=== PATIENT | male | born 1965 | race Caucasian/White ===

== ENCOUNTER 2016-07-26 17:41 | Inpatient (IN) | payer OTHER ==
[~2016-07-26] VITALS: Ht 175.3 cm; Wt 52.6 kg
[2016-07-26 17:43] VITALS: BP 142/83; PULSE 122; RESP 16; TEMP 98.4; O2SAT 90
[2016-07-26 18:16] VITALS: BP 149/78; PULSE 111; RESP 28; O2SAT 93
[2016-07-26] MEDS ORDERED: SODIUM CHLOR 0.9% 1000 ML INJ 1,000 ML IV ONE ×3 (18:30→20:30)
[2016-07-26] MEDS ORDERED: THIAMINE INJ 100 MG in SODIUM CHLORIDE 0.9% INJ 100 ML IV ONE (18:30)
[2016-07-26] MEDS ORDERED: LORazepam 2 MG/ML VIAL IV PUSH ONE ×3 (18:30→20:30)
[2016-07-26 18:51] LABS: AUTOMATED NEUTROPHIL # 4.6 TH/MM3 (1.8-7.7); BASOPHIL % 0.1 % (0.0-2.0); HEMATOCRIT 37.8 % (39.0-51.0); LYMPH % 7.2 % (9.0-44.0); LYMPHOCYTE # 0.4 TH/MM3 (1.0-4.8); MEAN CELL VOLUME 106.4 FL (80.0-100.0); MEAN CORPUSCULAR HEMOGLOBIN 37.3 PG (27.0-34.0); MONO % 12.3 % (0.0-8.0); NEUT % 80.4 % (16.0-70.0); PLATELET COUNT 20 TH/MM3 (150-450); RED BLOOD COUNT 3.55 MIL/MM3 (4.50-5.90); WHITE BLOOD COUNT 5.7 TH/MM3 (4.0-11.0)
[2016-07-26 18:52] LABS: HEMO FLAGS AUTO DIFF
[2016-07-26 19:00] VITALS: BP 142/72; PULSE 130; RESP 20; O2SAT 93
[2016-07-26 19:19] LABS: BICARBONATE 28.2 MEQ/L (21.0-32.0); MAGNESIUM 1.1 MG/DL (1.5-2.5); POTASSIUM 3.2 MEQ/L (3.5-5.1)
--- NOTE | 2016-07-26 19:22 | PD ---
HPI Chief Complaint: Alcohol/Drug Intoxication Time Seen by Provider: 18:05 Travel History International Travel<30 days: No Contact w/Intl Traveler<30days: No Traveled to known affect area: No History of Present Illness HPI 51yo M with PMH of alcohol abuse presents to the ED with c/o shakiness today. Pt last drank at 12pm and thinks he is going through alcohol withdrawal. Pt wants detox from alcohol. States he has had history of alcohol withdrawal seizures. Denies any fever, chest pain, sob, n/v, abdominal pain, weakness or numbness. PFSH Past Medical History Depression: Yes (PARENTS PAST AWAY ) Diminished Hearing: No Medical other: Yes (ETOH ABUSE) Musculoskeletal: Yes (CHRONIC BACK PAIN DUE TO ACCIDENT ) Immunizations Current: No Seizures: Yes (RELATED ALCOHOL WITHDRAWAL) Tetanus Vaccination: < 5 Years Influenza Vaccination: No Past Surgical History Surgical History: No Previous Surgery Social History Alcohol Use: Yes (ETOH ABUSE ) Tobacco Use: Yes (1/2 PPD ) Substance Use: Yes (SMOKE WEED ) Allergies-Medications (Allergen,Severity, Reaction): Coded Allergies: Penicillin (Verified Allergy, Unknown, RASHES, 07/26/16) Reported Meds & Prescriptions Reported Meds & Active Scripts Active No Active Prescriptions or Reported Medications Review of Systems Except as stated in HPI: all other systems reviewed are Neg Physical Exam Narrative GENERAL: 51yo M in mild distress. SKIN: Warm and dry. HEAD: Atraumatic. Normocephalic. EYES: Pupils equal and round. No scleral icterus. No injection or drainage. ENT: No nasal bleeding or discharge. Mucous membranes pink and moist. NECK: Trachea midline. No JVD. CARDIOVASCULAR: Tachycardic. RESPIRATORY: No accessory muscle use. Clear to auscultation. GASTROINTESTINAL: Abdomen soft, non-tender, nondistended. No rebound tenderness or guarding. MUSCULOSKELETAL: No obvious deformities. No clubbing. No cyanosis. No edema. NEUROLOGICAL: Awake and alert. No obvious cranial nerve deficits. Motor grossly within normal limits. Normal speech. +Upper extremity tremors and tongue fasiculation. PSYCHIATRIC: Appropriate mood and affect; insight and judgment normal. Data Data Last Documented VS Vital Signs Date Time Temp Pulse Resp B/P Pulse Ox O2 Delivery O2 Flow Rate FiO2 07/26/16 19:45 92 21 07/26/16 19:00 130 20 142/72 Room Air 07/26/16 17:43 98.4 Orders Complete Blood Count With Diff (07/26/16 18:16) Basic Metabolic Panel (Bmp) (07/26/16 18:16) Magnesium (Mg) (07/26/16 18:16) Thiamine Inj (Thiamine Inj) (07/26/16 18:30) Lorazepam Inj (Ativan Inj) (07/26/16 18:30) Sodium Chlor 0.9% 1000 Ml Inj (Ns 1000 M (07/26/16 18:30) Lorazepam Inj (Ativan Inj) (07/26/16 19:30) Electrocardiogram (07/26/16 ) Chest, Single Ap (07/26/16 ) Methylprednisolone So Succ Inj (Solumedr (07/26/16 19:30) Albuterol-Ipratropium Neb (Duoneb Neb) (07/26/16 19:30) Magnesium Sulfate 1 Gm Premix (Magnesium (07/26/16 20:00) Potassium Chloride (Kcl) (07/26/16 20:00) Sodium Chlor 0.9% 1000 Ml Inj (Ns 1000 M (07/26/16 20:15) Levofloxacin 750 Mg Premix Inj (Levaquin (07/26/16 20:15) Blood Culture (07/26/16 20:15) Lactic Acid Sepsis Protocol (07/26/16 20:15) Alcohol (Ethanol) (07/26/16 20:15) Sodium Chlor 0.9% 1000 Ml Inj (Ns 1000 M (07/26/16 20:30) Admit Order (Ed Use Only) (07/26/16 20:19) Labs Laboratory Tests Test 07/26/16 18:15 White Blood Count 5.7 TH/MM3 Red Blood Count 3.55 MIL/MM3 Hemoglobin 13.2 GM/DL Hematocrit 37.8 % Mean Corpuscular Volume 106.4 FL Mean Corpuscular Hemoglobin 37.3 PG Mean Corpuscular Hemoglobin 35.0 % Concent Red Cell Distribution Width 14.0 % Platelet Count 20 TH/MM3 Mean Platelet Volume 8.3 FL Neutrophils (%) (Auto) 80.4 % Lymphocytes (%) (Auto) 7.2 % Monocytes (%) (Auto) 12.3 % Eosinophils (%) (Auto) 0.0 % Basophils (%) (Auto) 0.1 % Neutrophils # (Auto) 4.6 TH/MM3 Lymphocytes # (Auto) 0.4 TH/MM3 Monocytes # (Auto) 0.7 TH/MM3 Eosinophils # (Auto) 0.0 TH/MM3 Basophils # (Auto) 0.0 TH/MM3 CBC Comment AUTO DIFF Differential Comment AUTO DIFF CONFIRMED Platelet Estimate RARE Platelet Morphology Comment NORMAL Sodium Level 128 MEQ/L Potassium Level 3.2 MEQ/L Chloride Level 85 MEQ/L Carbon Dioxide Level 28.2 MEQ/L Anion Gap 15 MEQ/L Blood Urea Nitrogen 7 MG/DL Creatinine 0.54 MG/DL Estimat Glomerular Filtration 159 ML/MIN Rate Random Glucose 84 MG/DL Calcium Level 8.5 MG/DL Magnesium Level 1.1 MG/DL Ethyl Alcohol Level 30 MG/DL [facility] Medical Decision Making Medical Screen Exam Complete: Yes Emergency Medical Condition: Yes Differential Diagnosis Alcohol withdrawal vs. COPD exacerbation vs. Pneumonia Narrative Course 51yo M with alcohol abuse presents to the ED complaining of shaking that feels like his alcohol withdrawal. Pt initially mildly tachycardic in the 110s and with tongue fasciculation and upper extremity tremors. Impression is alcohol withdrawal since pt has not had alcohol since 12pm. Pt given ativan 1mg IV, thiamine and IVF NS. Labs reviewed, no leukocytosis. Hyponatremia at 128. Hypokalemia at 3.2, replaced orally with 40mEq KCl. Hypomagnesemia at 1.1, replaced with magnesium sulfate 1gm IV. Pt reevaluated at bedside and is still very tremulous. Pt is now more tachycardic with sinus tach in the 130s. Another ativan 1mg IV ordered. Pt now complained of sob so lungs were reexamined and can hear end expiratory wheezing. Pt is chronic cig smoker so duonebsx3 and methylprednisolone given. CXR showed focal infiltrate right lung base most characteristic of a bronchopneumonia in the right middle lobe. Blood cultures ordered and levofloxacin 750mg IV ordered. 2 more liters of NS IVF ordered. Discussed with hospitalist Dr. Ji and accepted for admission for pneumonia, alcohol withdrawal, hypomagnesemia, and COPD exacerbation. Diagnosis Primary Impression: PNA (pneumonia) Qualified Code: J18.1 - Pneumonia of right middle lobe due to infectious organism Additional Impressions: Hypomagnesemia Alcohol withdrawal Qualified Code: F10.230 - Alcohol withdrawal, uncomplicated Admitting Information Admitting Physician Requests: Admit Scripts No Active Prescriptions or Reported Meds Lashawn Larsen DO Jul 26, 2016 19:22
[2016-07-26] MEDS ORDERED: methylPREDNISolone SOD SUCC 125 MG/2 ML VIAL IVP ONE (19:30)
[2016-07-26 19:43] LABS: PLATELET ESTIMATE SMEAR RARE (NORMAL); PLATELET MORPHOLOGY NORMAL (NORMAL); SCAN/DIFF AUTO DIFF CONFIRMED
[2016-07-26 19:45] VITALS: O2SAT 92
[2016-07-26] MEDS: RESP: ALBUTEROL 2.5 MG/IPRATROPIUM 0.5 MG NEB (SCH) INH (19:49)
[2016-07-26] MEDS ORDERED: POTASSIUM CHLORIDE 20 MEQ CONTROLLED RELEASE TAB PO ONE (20:00)
[2016-07-26] MEDS ORDERED: MAGNESIUM SULFATE 1 GM PREMIX 100 ML IV ONE (20:00)
--- NOTE | 2016-07-26 20:08 | RADRPT ---
EXAM DATE/TIME: 07/26/2016 19:17 [facility] COMPARISON: No previous studies available for comparison. INDICATIONS : Short of breath. MEDICAL HISTORY : None. SURGICAL HISTORY : None. ENCOUNTER: Initial ACUITY: 1 day PAIN SCORE: 0/10 LOCATION: Bilateral chest FINDINGS: There is some focal consolidation at the medial aspect of the right lung base, probably in the right middle lobe. Left lung clear. No effusion. No pneumothorax. CONCLUSION: 1. Focal infiltrate right lung base most characteristic of a bronchopneumonia in the right middle lob e. Augustine Rios MD on July 26, 2016 at 20:06 Board Certified Radiologist. This report was verified electronically.
[2016-07-26] MEDS ORDERED: LEVOFLOXACIN 750 MG PREMIX INJ 150 ML IV ONE (20:15)
--- NOTE | 2016-07-26 20:24 | HHI.HP ---
HPI Service [facility] Primary Care Physician No Primary Care Physician Admission Diagnosis Right middle lobe pneumonia, alcohol withdrawal, hypomagnesemia Diagnoses: (1) Alcohol withdrawal Diagnosis: Principal (2) PNA (pneumonia) Diagnosis: Principal (3) Hypomagnesemia Diagnosis: Principal (4) Hypokalemia Diagnosis: Principal (5) Thrombocytopenia Diagnosis: Principal (6) Tobacco abuse Diagnosis: Principal Travel History International Travel<30 Days: No Contact w/Intl Traveler <30 Da: No Traveled to Known Affected Are: No History of Present Illness This is a 51-year-old male with a PMH of Depression, Alcohol Abuse, Alcohol Related Seizure and Tobacco Abuse who presented to the ER with complaints of tremors and intentions of quitting alcohol. States he stopped drinking at approx noon today. Has had progressive tremors since then. On arrival, BP 142/ 83, HR 122, O2 sat 90% on RA, Afebrile. Na 128, K+ 3.2, Lactic Acid 2.5, Mg 1.1. WBC normal. Hgb 13.2, MCV 106. Platelets 20. No active bleeding noted. Alcohol 30. CXR w/ infiltrate RLL and RML. S/p Levaquin in ER. Review of Systems Except as stated in HPI: all other systems reviewed are Neg ROS: 14 point review of systems otherwise negative. Past Family Social History Past Medical History PMH: Depression, Alcohol Abuse, Alcohol Related Seizure and Tobacco Abuse Past Surgical History PAST SURGICAL HISTORY: None Allergies: Coded Allergies: Penicillin (Verified Allergy, Unknown, RASHES, 07/26/16) Family History PAST FAMILY HISTORY: Reviewed. No h/o DM or CAD Social History PAST SOCIAL HISTORY: Positive for alcohol abuse, tobacco abuse and Marijuana. Physical Exam Vital Signs Vital Signs Date Time Temp Pulse Resp B/P Pulse Ox O2 Delivery O2 Flow Rate FiO2 07/26/16 18:16 111 28 149/78 93 Room Air 07/26/16 17:43 98.4 122 16 142/83 90 Room Air Physical Exam PE: GENERAL: Middle-aged white male in no acute distress, significant tremors. HEENT: PERRLA, EOMI. No scleral icterus or conjunctival pallor. No lid lag or facial droop. CARDIOVASCULAR: Regular rate and rhythm. No obvious murmurs to auscultation. No chest tenderness to palpation. RESPIRATORY: No obvious rhonchi or wheezing. Clear to auscultation. Breath sounds equal bilaterally. GASTROINTESTINAL: Abdomen soft, non-tender, nondistended. BS normal. MUSCULOSKELETAL: Extremities without clubbing, cyanosis, or edema. No obvious deformities. NEUROLOGICAL: Awake, alert and oriented x4. No focal neurologic deficits. Moving both upper and lower extremities spontaneously. Laboratory Laboratory Tests Test 07/26/16 18:15 White Blood Count 5.7 Red Blood Count 3.55 Hemoglobin 13.2 Hematocrit 37.8 Mean Corpuscular Volume 106.4 Mean Corpuscular Hemoglobin 37.3 Mean Corpuscular Hemoglobin 35.0 Concent Red Cell Distribution Width 14.0 Platelet Count 20 Mean Platelet Volume 8.3 Neutrophils (%) (Auto) 80.4 Lymphocytes (%) (Auto) 7.2 Monocytes (%) (Auto) 12.3 Eosinophils (%) (Auto) 0.0 Basophils (%) (Auto) 0.1 Neutrophils # (Auto) 4.6 Lymphocytes # (Auto) 0.4 Monocytes # (Auto) 0.7 Eosinophils # (Auto) 0.0 Basophils # (Auto) 0.0 CBC Comment AUTO DIFF Differential Comment AUTO DIFF CONFIRMED Platelet Estimate RARE Platelet Morphology Comment NORMAL Sodium Level 128 Potassium Level 3.2 Chloride Level 85 Carbon Dioxide Level 28.2 Anion Gap 15 Blood Urea Nitrogen 7 Creatinine 0.54 Estimat Glomerular Filtration 159 Rate Random Glucose 84 Calcium Level 8.5 Magnesium Level 1.1 Result Diagram: 07/26/16181407/26/161814 Assessment and Plan Problem List: (1) Alcohol withdrawal ICD Code: F10.239 Status: Acute (2) Thrombocytopenia ICD Code: D69.6 Status: Acute (3) Hypomagnesemia ICD Code: E83.42 Status: Acute (4) Hypokalemia ICD Code: E87.6 Status: Acute (5) PNA (pneumonia) ICD Code: J18.9 Status: Acute (6) Tobacco abuse ICD Code: Z72.0 Status: Acute Assessment and Plan A/P: 1. Alcohol Withdrawal: +Alcohol Abuse w/ Acute Withdrawal, last drink approx 12pm today. Alcohol 30. S/p Ativan and Thiamine in ER. Seizure Precautions, CIWA Protocol, Thiamine/MVT/Folate replacement. IVF for hydration. 2. Hypokalemia: K+ 3.2, s/p replacement in ER, will recheck and replace as needed. 3. Hypomagnesemia: Mg 1.1, s/p replacement. Recheck in am and replace as needed. 4. PNA: CXR w/ RLL and RML infiltrate, images reviewed by me. S/p Solu- Medrol and DuoNeb in ER for wheezing, now resolved. Continue IV Levaquin, DuoNeb prn. 5. Thrombocytopenia: Platelets 20, no previous labs for comparison. Presumably chronic secondary to alcohol abuse and splenic sequestration. No active bleeding at this time. Monitor closely. Repeat labs in am. 6. Tobacco Abuse: Counselled. Ativan prn. 7. DVT Prophylaxis: Pharmacologic contraindication in light of thrombocytopenia. 8. Social work for d/c planning as needed. 9. Case discussed w/ ER physician at length. Physician Certification 2 Midnight Certification Type: Admission for Inpatient Services Order for Inpatient Services The services are ordered in accordance with Medicare regulations or non- Medicare payer requirements, as applicable. In the case of services not specified as inpatient-only, they are appropriately provided as inpatient services in accordance with the 2-midnight benchmark. Estimated LOS (days): 2 days is the estimated time the patient will need to remain in the hospital, assuming treatment plan goals are met and no additional complications. Post-Hospital Plan: Not yet determined Fani Ji MD Jul 26, 2016 20:24
[2016-07-26] MEDS ORDERED: ONDANSETRON HCL 4 MG/2 ML VIAL IVP PRN (20:30)
[2016-07-26] MEDS ORDERED: BISACODYL 10 MG SUPP PR PRN (20:30)
[2016-07-26] MEDS ORDERED: FLUMAZENIL 0.5 MG/5 ML VIAL IV PUSH PRN (20:30)
[2016-07-26] MEDS ORDERED: LORazepam 2 MG TAB PO PRN (20:30)
[2016-07-26] MEDS: SODIUM CHLORIDE 0.9% FLUSH 5 ML FLUSH FLUSH SCH (22:26)
[2016-07-26] MEDS: SODIUM CHLOR 0.9% 1000 ML INJ 1,000 ML IV SCH (22:27)
[2016-07-26 23:00] VITALS: BP 149/66; PULSE 105; RESP 20; TEMP 98.9; O2SAT 93
[2016-07-26] MEDS: MULTIVITAMIN INJ 10 ML, FOLIC ACID INJ 1 MG in SODIUM CHLORID 0.9% 500 ML INJ 500 ML IV SCH (23:21)
[2016-07-27] VITALS (15 sets, daily range): BP systolic 115–149; BP diastolic 60–98; PULSE 98–143; RESP 16–44; TEMP 98.1–102.8; O2SAT 88–96
[2016-07-27 00:54] LABS: LACTIC ACID GHOST NOT REPORTABLE
[2016-07-27] MEDS: LORazepam 2 MG/ML VIAL IV PUSH PRN ×10 (00:56→23:38)
[2016-07-27] MEDS: HALOPERIDOL LACTATE 5 MG/ML AMP IM PRN ×3 (02:02→19:43)
[2016-07-27 02:59] LABS: AUTOMATED NEUTROPHIL # 4.2 TH/MM3 (1.8-7.7); BASOPHIL % 0.3 % (0.0-2.0); HEMATOCRIT 36.4 % (39.0-51.0); LYMPH % 7.9 % (9.0-44.0); LYMPHOCYTE # 0.4 TH/MM3 (1.0-4.8); MEAN CELL VOLUME 106.1 FL (80.0-100.0); MEAN CORPUSCULAR HEMOGLOBIN 37.8 PG (27.0-34.0); MEAN CORPUSCULAR HGB CONC 35.6 % (32.0-36.0); MONO % 6.2 % (0.0-8.0); NEUT % 85.6 % (16.0-70.0); RED BLOOD COUNT 3.44 MIL/MM3 (4.50-5.90); RED CELL DISTRIBUTION WIDTH 14.5 % (11.6-17.2); WHITE BLOOD COUNT 4.9 TH/MM3 (4.0-11.0)
[2016-07-27 03:01] LABS: HEMO FLAGS AUTO DIFF
[2016-07-27 03:03] LABS: PLATELET COUNT 18 TH/MM3 (150-450)
[2016-07-27 03:20] LABS: ALKALINE PHOSPHATASE 71 U/L (45-117); ALT (GPT) 40 U/L (12-78); ANION GAP 11 MEQ/L (5-15); AST (GOT) 204 U/L (15-37); BLOOD UREA NITROGEN 5 MG/DL (7-18); CHLORIDE 94 MEQ/L (98-107); GLOMERULAR FILTRATION RATE 202 ML/MIN (>89); POTASSIUM 3.2 MEQ/L (3.5-5.1); SODIUM (NA) 132 MEQ/L (136-145); TOTAL BILIRUBIN ADULT 0.8 MG/DL (0.2-1.0)
[2016-07-27 04:21] LABS: BANDS 30 % (0-6); BASOPHILS 1 % (0-2); CORRECTED NUCLEATED RBC 1 /100 WBC (0-0); METAMYELOCYTES 4 % (0-1); NEUTROPHIL # MANUAL DIFF 4.1 TH/MM3 (1.8-7.7); POLYS (SEG NEUTROPHILS) 50 % (16-70); SCAN/DIFF FINAL DIFF MANUAL; WBC DIFF SAMPLE 100
[2016-07-27 04:23] LABS: PLATELET ESTIMATE SMEAR LOW (NORMAL); PLATELET MORPHOLOGY NORMAL (NORMAL)
[2016-07-27] MEDS: SODIUM CHLOR 0.9% 1000 ML INJ 1,000 ML IV SCH (07:00)
[2016-07-27] MEDS: LORazepam 1 MG TAB PO PRN (10:16)
[2016-07-27] MEDS: SODIUM CHLORIDE 0.9% FLUSH 5 ML FLUSH FLUSH SCH ×2 (11:08→19:44)
[2016-07-27] MEDS ORDERED: LORazepam 2 MG/ML VIAL IV PUSH PRN (12:00)
--- NOTE | 2016-07-27 12:08 | HHI.PR ---
Subjective Remarks Follow-up alcohol abuse and Pneumonia. States he is doing okay. Discussed with RN, patient at times confused and hallucinating. He has been coughing Objective Vitals Vital Signs Date Time Temp Pulse Resp B/P Pulse Ox O2 Delivery O2 Flow Rate FiO2 07/27/16 11:40 114 18 127/70 93 Room Air 07/27/16 09:31 98 16 127/67 95 Room Air 07/27/16 08:31 103 16 123/73 96 Room Air 07/27/16 08:02 103 18 126/71 96 Room Air 07/27/16 06:46 98.2 98 20 115/60 93 Room Air 07/27/16 05:00 98.5 107 20 115/65 93 Room Air 07/27/16 02:00 98.8 110 20 122/67 93 Room Air 07/26/16 23:00 98.9 105 20 149/66 93 Room Air 07/26/16 19:45 92 21 07/26/16 19:00 130 20 142/72 93 Room Air 07/26/16 18:16 111 28 149/78 93 Room Air 07/26/16 17:43 98.4 122 16 142/83 90 Room Air I/O 07/26/16 07/26/16 07/26/16 07/27/16 07/27/16 07/27/16 07:00 15:00 23:00 07:00 15:00 23:00 Intake Total 2000 ml Output Total 2600 ml 400 ml Balance -600 ml -400 ml Intake IV Total 2000 ml Output Urine Total 2600 ml 400 ml # Voids 1 0 Result Diagram: 07/27/16 0246 07/27/16 0246 Imaging Last Impressions Chest X-Ray 07/26/16 0000 Signed Impressions: Service Date/Time: July 19:17 - CONCLUSION: 1. Focal infiltrate right lung base most characteristic of a bronchopneumonia in the right middle lobe. Augustine Rios MD Objective Remarks GENERAL: Middle-aged white male in no acute distress, HEENT: PERRLA, EOMI. No scleral icterus or conjunctival pallor. No lid lag or facial droop. CARDIOVASCULAR: Regular rate and rhythm. No obvious murmurs to auscultation. No chest tenderness to palpation. RESPIRATORY: No obvious rhonchi or wheezing. Clear to auscultation. Breath sounds equal bilaterally. GASTROINTESTINAL: Abdomen soft, non-tender, nondistended. BS normal. MUSCULOSKELETAL: Extremities without clubbing, cyanosis, or edema. No obvious deformities. NEUROLOGICAL: Awake, alert and oriented. No focal neurologic deficits. Moving both upper and lower extremities spontaneously. Tremors. A/P Problem List: (1) Alcohol withdrawal ICD Code: F10.239 Status: Acute (2) Thrombocytopenia ICD Code: D69.6 Status: Acute (3) Hypomagnesemia ICD Code: E83.42 Status: Acute (4) Hypokalemia ICD Code: E87.6 Status: Acute (5) PNA (pneumonia) ICD Code: J18.9 Status: Acute (6) Tobacco abuse ICD Code: Z72.0 Status: Acute Assessment and Plan 1. Alcohol Withdrawal: +Alcohol Abuse w/ Acute Withdrawal, last drink approx 12pm 07/26/16. Alcohol 30. S/p Ativan and Thiamine in ER. Seizure Precautions, CIWA Protocol, Thiamine/MVT/Folate replacement. IVF for hydration. 2. Hypokalemia: K+ 3.2, s/p replacement in ER, will recheck and replace as needed. 3. Hypomagnesemia: Mg 1.1, s/p replacement. Recheck in am and replace as needed. 4. Severe sepsis PNA: CXR w/ RLL and RML infiltrate, images reviewed by me. S /p Solu-Medrol and DuoNeb in ER for wheezing, now resolved. Continue IV Levaquin, DuoNeb prn. Check sputum and urinary Legionella and pneumococcal antigen 5. Thrombocytopenia: Platelets 20, no previous labs for comparison. Presumably chronic secondary to alcohol abuse and splenic sequestration. No active bleeding at this time. Monitor closely. Repeat labs in am. Check sonogram 6. Tobacco Abuse: Counselled. Ativan prn. 7. DVT Prophylaxis: Pharmacologic contraindication in light of thrombocytopenia. Mirza Stock MD Jul 27, 2016 12:08
[2016-07-27] MEDS ORDERED: MAGNESIUM SULFATE 1 GM PREMIX 100 ML IV ONE (12:15)
[2016-07-27] MEDS ORDERED: POTASSIUM CHLORIDE 20 MEQ CONTROLLED RELEASE TAB PO ONE (12:15)
[2016-07-27] MEDS ORDERED: POTASSIUM CHLORIDE 10 MEQ CONTROLLED RELEASE TAB PO ONE (12:15)
[2016-07-27] MEDS: MAGNESIUM OXIDE 400 MG TAB PO SCH ×2 (13:00→19:42)
--- NOTE | 2016-07-27 14:20 | RADRPT ---
EXAM DATE/TIME: 07/27/2016 12:07 [facility] COMPARISON: No previous studies available for comparison. INDICATIONS : Cirrhosis. MEDICAL HISTORY : Seizures with alcohol withdrawl. Chronic back pain. ETOH abuse. SURGICAL HISTORY : Unable to obtain. ENCOUNTER: Initial ACUITY: 1 day PAIN SCORE: Nonresponsive. LOCATION: Abdomen. MEASUREMENTS: LIVER: 18.0 cm length COMMON DUCT: 4 mm RIGHT KIDNEY: 13.5 x 5.0 x 6.8 cm SPLEEN: Non-visualized. FINDINGS: LIVER: Increased echotexture without focal lesion or ductal dilatation. COMMON DUCT: No intraluminal mass or stone visualized. GALLBLADDER: Contains no stones, demonstrates no wall thickening or pericholecystic fluid. PANCREAS: Limited visualization. The identified portions are normal, however. RIGHT KIDNEY: No hydronephrosis, stone or mass. SPLEEN: Unable to identify due to limitations in patient positioning CONCLUSION: 1. Enlarged, echogenic liver suggesting some fatty infiltration. 2. Limited visualization of the pancreas with nonvisualization of the spleen. 3. Otherwise negative. Ki Carlos MD on July 27, 2016 at 14:16 Board Certified Radiologist. This report was verified electronically.
[2016-07-27] MEDS: ACETAMINOPHEN 325 MG TAB PO PRN ×2 (15:37→19:59)
[2016-07-27] MEDS: LEVOFLOXACIN 750 MG PREMIX INJ 150 ML IV SCH (19:42)
[2016-07-27] MEDS: THIAMINE INJ 100 MG in SODIUM CHLORIDE 0.9% INJ 100 ML IV SCH (19:59)
[2016-07-27] MEDS: MULTIVITAMIN INJ 10 ML, FOLIC ACID INJ 1 MG in SODIUM CHLORID 0.9% 500 ML INJ 500 ML IV SCH (20:00)
[2016-07-27] MEDS: chlordiazePOXIDE 25 MG CAP PO SCH (20:27)
--- NOTE | 2016-07-27 20:59 | EKG ---
Date Performed: 07/26/2016 Time Performed: 21:23:01 PTAGE: 51 years EKG: Marked baseline artifact Supraventricular tachycardia. ABNORMAL RHYTHM ECG NO PREVIOUS TRACING DOCTOR: Tien Wolfe Interpretating Date/Time 07/27/2016 20:57:47
[2016-07-27] MEDS ORDERED: PROPOFOL 1000 MG/100 ML INJ 100 ML ONE (21:04)
[2016-07-27] MEDS: DEXMEDETOMIDINE INJ 50 ML IV SCH ×3 (21:16→23:25)
[2016-07-27] MEDS ORDERED: CHLORHEXIDINE GLUCONATE 2 % 1 PACK (2 CLOTHS)(extra cloths) TOP PRN (22:30)
[2016-07-28] VITALS (12 sets, daily range): BP systolic 93–115; BP diastolic 58–77; PULSE 83–134; RESP 16–32; TEMP 97.9–103; O2SAT 94–98
[2016-07-28] MEDS: RESP: ALBUTEROL 2.5 MG/IPRATROPIUM 0.5 MG NEB (PRN) NEB (00:12)
[2016-07-28] MEDS: CHLORHEXIDINE GLUCONATE 2 % 1 PACK (2 CLOTHS)(taper/protocol) TOP SCH (03:10)
[2016-07-28] MEDS: chlordiazePOXIDE 25 MG CAP PO SCH (03:12)
[2016-07-28] MEDS: DEXMEDETOMIDINE INJ 50 ML IV SCH ×5 (03:59→20:13)
[2016-07-28 05:56] LABS: AUTOMATED NEUTROPHIL # 4.5 TH/MM3 (1.8-7.7); BASOPHIL % 0.2 % (0.0-2.0); HEMATOCRIT 36.4 % (39.0-51.0); LYMPH % 8.4 % (9.0-44.0); LYMPHOCYTE # 0.4 TH/MM3 (1.0-4.8); MEAN CORPUSCULAR HGB CONC 34.3 % (32.0-36.0); MONO % 6.6 % (0.0-8.0); NEUT % 84.8 % (16.0-70.0); PLATELET COUNT 18 TH/MM3 (150-450); RED BLOOD COUNT 3.37 MIL/MM3 (4.50-5.90); WHITE BLOOD COUNT 5.3 TH/MM3 (4.0-11.0)
[2016-07-28 06:08] LABS: BICARBONATE 25.1 MEQ/L (21.0-32.0); MAGNESIUM 1.7 MG/DL (1.5-2.5); POTASSIUM 3.2 MEQ/L (3.5-5.1)
[2016-07-28 06:25] LABS: HEMO FLAGS AUTO DIFF
[2016-07-28] MEDS ORDERED: POTASSIUM PHOSPHATE MONOBASIC 500 MG TAB PO PRN (08:00)
[2016-07-28] MEDS ORDERED: POTASSIUM CHLOR 20 MEQ PREMIX 100 ML IV PRN (08:00)
[2016-07-28] MEDS ORDERED: POTASSIUM CL 40 MEQ/30 ML LIQ UDC PO/TUBE PRN ×2 (08:00)
[2016-07-28] MEDS ORDERED: POTASSIUM CHLOR 40 MEQ PREMIX 100 ML IV PRN ×2 (08:00)
[2016-07-28] MEDS ORDERED: POTASSIUM PHOSPHATE MONOBASIC 500 MG TAB PO/TUBE PRN (08:00)
[2016-07-28] MEDS ORDERED: MAGNESIUM SULFATE INJ 2 GM in SODIUM CHLORIDE 0.9% INJ 96 ML IV PRN (08:00)
[2016-07-28] MEDS ORDERED: MAGNESIUM OXIDE 400 MG TAB PO PRN (08:00)
[2016-07-28] MEDS ORDERED: MAGNESIUM SULFATE INJ 4 GM in SODIUM CHLORIDE 0.9% INJ 92 ML IV PRN (08:00)
[2016-07-28 09:16] LABS: BANDS 19 % (0-6); NEUTROPHIL # MANUAL DIFF 4.7 TH/MM3 (1.8-7.7); PLATELET ESTIMATE SMEAR RARE (NORMAL); PLATELET MORPHOLOGY NORMAL (NORMAL); POLYS (SEG NEUTROPHILS) 69 % (16-70); SCAN/DIFF FINAL DIFF MANUAL; WBC DIFF SAMPLE 100
[2016-07-28] MEDS: POTASSIUM CHLOR 20 MEQ PREMIX 100 ML IV PRN ×2 (09:35→13:13)
[2016-07-28] MEDS: SODIUM CHLORIDE 0.9% FLUSH 5 ML FLUSH FLUSH SCH ×2 (10:40→21:09)
[2016-07-28] MEDS: MAGNESIUM OXIDE 400 MG TAB PO SCH ×2 (10:41→21:09)
[2016-07-28] MEDS ORDERED: SODIUM CHLOR 0.9% 250 ML INJ 250 ML IV ONE (11:00)
--- NOTE | 2016-07-28 12:00 | RADRPT ---
EXAM DATE/TIME: 07/28/2016 11:31 [facility] COMPARISON: No previous studies available for comparison. INDICATIONS : Seizure. RADIATION DOSE: 56.35 CTDIvol (mGy) MEDICAL HISTORY : Seizures. ETOH SURGICAL HISTORY : None. ENCOUNTER: Initial ACUITY: 1 day PAIN SCALE: Non-responsive LOCATION: cranial TECHNIQUE: Multiple contiguous axial images were obtained of the head. Using automated exposure control and adj ustment of the mA and/or kV according to patient size, radiation dose was kept as low as reasonably a chievable to obtain optimal diagnostic quality images. FINDINGS: CEREBRUM: The ventricles are normal for age. Cerebral atrophy. No evidence of midline shift, mass lesion, hemor rhage or acute infarction. No extra-axial fluid collections are seen. POSTERIOR FOSSA: The cerebellum and brainstem are intact. The 4th ventricle is midline. The cerebellopontine angle i s unremarkable. EXTRACRANIAL: The visualized portion of the orbits is intact. SKULL: The calvaria is intact. No evidence of skull fracture. CONCLUSION: Cerebral atrophy without acute abnormality. Adam Young MD on July 28, 2016 at 11:58 Board Certified Radiologist. This report was verified electronically.
--- NOTE | 2016-07-28 13:10 | EKG ---
Date Performed: 07/27/2016 Time Performed: 22:04:26 PTAGE: 51 years EKG: SINUS TACHYCARDIA ABNORMAL RHYTHM ECG Compared to prior tracing no significant change PREVIOUS TRACING : 07/26/2016 21.23 DOCTOR: Charlie Saba Interpretating Date/Time 07/28/2016 13:09:32
[2016-07-28] MEDS: ACETAMINOPHEN 325 MG TAB PO PRN (13:13)
--- NOTE | 2016-07-28 13:17 | MB ---
cc: TARA ANNE DATE OF CONSULTATION: 07/28/2016 REASON FOR CONSULTATION: Reason for consultation is life-threatening thrombocytopenia. PATIENT PROFILE The patient is unable to give a history. He has been having delirium tremors. he is sedated. He is arousable but cannot answer questions. The history is obtained by speaking to the nursing staff and reviewing the records. SOCIAL HISTORY I am unaware of his social history, I do not know if he is , or has children. I do not know if he works. His social history consists of history of alcoholism, tobacco abuse and there is a notation of marijuana use. HISTORY OF PRESENT ILLNESS The patient is a 51-year-old male who presented to the emergency room on 07/26/2016. He had a history of drinking in excess of a pint a day and he stopped drinking about 12-24 hours prior to the arrival at the emergency room. He was having withdrawals. He was placed in the intensive care unit and he has been sedated. At that time of admission on 07/26 he had a hemoglobin of 13, white count 5700, platelets of 20,000. The differential was unremarkable. The following day on 07/27 hemoglobin 13, white count 4900, platelets 18,000 and today 07/28 hemoglobin is 12.5, white count 5300 and platelets 18,000. The differential was unremarkably MCV is elevated to 108. Additional studies included lytes, BUN and creatinine notable for slightly low sodium of 133 and potassium of 3.2, BUN is six, creatinine 0.29. Liver function tests bilirubin 0.8, AST 2004, ALT 48, alk phos is 71, albumin is 2.6. labs serum ethanol level 30 mg per deciliter on July 26, 2016 RADIOLOGIC: Imaging studies consist of the chest x-ray on 07/26 showing a focal infiltrate in the right lung base. characteristic of a bronchopneumonia in the right middle lobe. A ultrasound of the liver shows the liver to be 18 cm. The spleen was nonvisualized. There has been no bleeding. PAST HISTORY Medical history per notes includes; 1. Depression. 2. Alcohol abuse. 3. Alcohol related seizures. PAST SURGICAL HISTORY According to records none. ALLERGIES PENICILLIN. FAMILY HISTORY: Family history is not available to me. MEDICATIONS: 1. Thiamine 2. Potassium 3. 4. Lorazepam. 5. Multiple MDI 6. Haldol 7. Levaquin. REVIEW OF SYSTEMS not available. PHYSICAL EXAMINATION: IN GENERAL: Physical exam reveals a lethargic male lying in bed. He is arousable and can move all extremities and then falls back to sleep. VITAL SIGNS: Blood pressure is 100/70, respiratory rate is 24 afebrile, pulse 90, O2 sat 98%. HEAD, EYES, EARS, NOSE, AND THROAT: Head is normocephalic. Sclerae unremarkable. Oropharynx with multiple absent teeth in the upper mouth. LYMPHATICS: There is no cervical, supraclavicular, axillary or inguinal adenopathy. HEART: Regular rhythm. LUNGS: Reveal bilateral wheezes. ABDOMEN: abdomen is soft, I cannot feel the liver, although is enlarged on ultrasound I cannot feel the spleen. MUSCULOSKELETAL: Severe muscle wasting. NEUROLOGIC: The patient extremely lethargic. EXTREMITIES: He can move all extremities to pain. No edema. SKIN: no ecchymoses ASSESSMENT The patient is a 51-year-old male with a history of both acute and chronic alcohol toxicity. He has severe thrombocytopenia the most likely explanation is thrombocytopenia related to the acute effects of alcohol. This degree of thrombocytopenia would not be related to splenomegaly and in addition I cannot feel an enlarged spleen. The second possibility would be ITP. This is unlikely given his current history of acute alcohol toxicity but must be considered. He also has a pneumonia which puts him at risk of having a DIC which can be another contributing event to the thrombocytopenia. PLAN 1. Screen for DIC with PT/PTT and fibrinogen. 2. Although there is no bleeding, he is not stable I am going to give him and a platelet transfusion. If this is ITP which is unlikely the platelets will fall quickly or if it there is disseminated intravascular coagulopathy, they will likewise fall quickly. If he can sustain a reasonable elevation in the platelet count then a consumptive thrombocytopenia is less likely. 3. Given his cognitive dysfunction and low platelet count I have ordered a CT scan of the brain without contrast to make sure that there is no intracerebral hemorrhage. 5. The patient will have a CBC and platelet count tomorrow. transfusion of platelets today, and a CT scan of the brain without contrast. 6. At the moment the working diagnosis remains thrombocytopenia secondary to the acute effects of alcohol. addendum: ct of brain - no bleed. he is unable to sign for blood products and there is no responsible republican acting in his behalf. will hold off on transfusion as there is no bleeding and reevaluate tomorrow. MD RAVI Moon/sawyer /11:09 AM /12:18 PM ALYSA
[2016-07-28] MEDS: LORazepam 2 MG/ML VIAL IV PUSH PRN ×5 (13:21→15:03)
[2016-07-28] MEDS: HALOPERIDOL LACTATE 5 MG/ML AMP IM PRN ×4 (13:53→15:04)
[2016-07-28 14:06] LABS: INTERNATIONAL NORMALIZED RATIO 1.1 RATIO; PROTHROMBIN TIME - PATIENT 12.2 SEC (9.8-11.6)
--- NOTE | 2016-07-28 15:07 | HHI.PR ---
Subjective Remarks Follow-up alcohol withdrawal. Patient is confused requiring restraints. Discussed with RN. Also discussed with critical care medicine Objective Vitals Vital Signs Date Time Temp Pulse Resp B/P Pulse Ox O2 Delivery O2 Flow Rate FiO2 07/28/16 14:00 134 07/28/16 12:00 94 Nasal Cannula 2.00 07/28/16 12:00 94 07/28/16 12:00 103.0 94 22 113/62 94 07/28/16 10:00 94 Nasal Cannula 2.00 07/28/16 10:00 86 07/28/16 08:00 86 07/28/16 08:00 100.4 86 20 100/58 96 07/28/16 08:00 96 Nasal Cannula 2.00 07/28/16 06:00 83 07/28/16 06:00 98 Nasal Cannula 3.00 07/28/16 04:00 97.9 83 27 110/68 96 07/28/16 04:00 96 Nasal Cannula 3.00 07/28/16 04:00 83 07/28/16 02:00 90 07/28/16 02:00 99 Nasal Cannula 3.00 07/28/16 00:00 99.5 103 32 115/77 98 07/28/16 00:00 98 Nasal Cannula 3.00 07/28/16 00:00 103 07/27/16 22:00 95 Nasal Cannula 3.00 07/27/16 22:00 119 07/27/16 20:00 102.8 143 44 149/98 88 07/27/16 20:00 88 Nasal Cannula 2.00 07/27/16 20:00 143 07/27/16 19:10 92 Nasal Cannula 2.00 07/27/16 18:11 98.9 126 21 123/88 92 07/27/16 16:38 98.1 125 18 125/74 94 Nasal Cannula 2 07/27/16 15:35 100.5 I/O 07/27/16 07/27/16 07/27/16 07/28/16 07/28/16 07/28/16 07:00 15:00 23:00 07:00 15:00 23:00 Intake Total 2000 ml 770 ml 2194 ml 273 ml Output Total 2600 ml 400 ml 1200 ml 550 ml Balance -600 ml -400 ml 770 ml 994 ml -277 ml Intake Oral 770 ml IV Total 2000 ml 2194 ml 273 ml Output Urine Total 2600 ml 400 ml 1200 ml 550 ml # Voids 1 0 2 # Bowel Movements 2 Result Diagram: 07/28/16 0531 07/28/16 0531 Imaging Last Impressions Head CT 07/28/16 0000 Signed Impressions: Service Date/Time: Thursday, July 28, 2016 11:31 - CONCLUSION: Cerebral atrophy without acute abnormality. Adam Young MD Liver Ultrasound 07/27/16 0000 Signed Impressions: Service Date/Time: Wednesday, July 27, 2016 12:07 - CONCLUSION: 1. Enlarged , echogenic liver suggesting some fatty infiltration. 2. Limited visualization of the pancreas with nonvisualization of the spleen. 3. Otherwise negative. Ki Carlos MD Chest X-Ray 07/26/16 0000 Signed Impressions: Service Date/Time: July 19:17 - CONCLUSION: 1. Focal infiltrate right lung base most characteristic of a bronchopneumonia in the right middle lobe. Augustine Rios MD Objective Remarks GENERAL: Middle-aged white male who is critically ill, confused HEENT: PERRLA, EOMI. No scleral icterus or conjunctival pallor. No lid lag or facial droop. CARDIOVASCULAR: Tachycardic No obvious murmurs to auscultation. No chest tenderness to palpation. RESPIRATORY: No obvious rhonchi or wheezing. Clear to auscultation. Breath sounds equal bilaterally. GASTROINTESTINAL: Abdomen soft, non-tender, nondistended. BS normal. MUSCULOSKELETAL: Extremities without clubbing, cyanosis, or edema. No obvious deformities. NEUROLOGICAL: Awake, confused. No focal neurologic deficits. Moving both upper and lower extremities spontaneously. Tremors. A/P Problem List: (1) Alcohol withdrawal ICD Code: F10.239 Status: Acute (2) Thrombocytopenia ICD Code: D69.6 Status: Acute (3) Hypomagnesemia ICD Code: E83.42 Status: Acute (4) Hypokalemia ICD Code: E87.6 Status: Acute (5) PNA (pneumonia) ICD Code: J18.9 Status: Acute (6) Tobacco abuse ICD Code: Z72.0 Status: Acute Assessment and Plan 1. Alcohol Withdrawal: +Alcohol Abuse w/ Acute Withdrawal, last drink approx 12pm 07/26/16. Alcohol 30. S/p Ativan and Thiamine in ER. Seizure Precautions, CIWA Protocol, Thiamine/MVT/Folate replacement. IVF for hydration. Continue Precedex and monitor neuro and respiratory status 2. Hypokalemia: K+ 3.2, s/p replacement in ER, will recheck and replace as needed. Also replace phosphorus 3. Hypomagnesemia: Mg 1.1, s/p replacement. Recheck in am and replace as needed. 4. Severe sepsis PNA: CXR w/ RLL and RML infiltrate, images reviewed by me. S /p Solu-Medrol and DuoNeb in ER for wheezing, now resolved. Continue IV Levaquin, DuoNeb prn. Check sputum, negative urinary Legionella and pneumococcal antigen 5. Thrombocytopenia: Platelets 20, no previous labs for comparison. Presumably chronic secondary to alcohol abuse and splenic sequestration. No active bleeding at this time. Monitor closely. Repeat labs in am. Spleen not visualized on sonogram, liver with fatty infiltration. Fibrinogen level within normal limits. Head CT without acute findings. Appreciate hematology input 6. Tobacco Abuse: Counselled. Ativan prn. 7. DVT Prophylaxis: Pharmacologic contraindication in light of thrombocytopenia. Discharge Planning Patient is critically ill Keep in ICU especially on Precedex drip, closely monitor neuro and respiratory status. Critical care time spent 35 minutes Problem Qualifiers (1) Alcohol withdrawal: Qualified Code: F10.230 - Alcohol withdrawal, uncomplicated (2) PNA (pneumonia): Qualified Code: J18.1 - Pneumonia of right middle lobe due to infectious organism Mirza Stock MD Jul 28, 2016 15:07
[2016-07-28] MEDS: NS + KCL 20 MEQ INJ 1,000 ML IV SCH (16:36)
[2016-07-28] MEDS: SODIUM PHOSPHATE INJ 30 MMOL in SODIUM CHLOR 0.9% 250 ML INJ 240 ML IV PRN (16:48)
[2016-07-28] MEDS: THIAMINE INJ 100 MG in SODIUM CHLORIDE 0.9% INJ 100 ML IV SCH (21:08)
[2016-07-28] MEDS: LEVOFLOXACIN 750 MG PREMIX INJ 150 ML IV SCH (21:09)
[2016-07-28] MEDS: MULTIVITAMIN INJ 10 ML, FOLIC ACID INJ 1 MG in SODIUM CHLORID 0.9% 500 ML INJ 500 ML IV SCH (22:09)
[2016-07-29] VITALS (15 sets, daily range): BP systolic 90–117; BP diastolic 54–65; PULSE 87–104; RESP 18–24; TEMP 99–102.4; O2SAT 94–97
[2016-07-29] MEDS: DEXMEDETOMIDINE INJ 50 ML IV SCH ×6 (01:47→22:43)
[2016-07-29] MEDS: CHLORHEXIDINE GLUCONATE 2 % 1 PACK (2 CLOTHS)(taper/protocol) TOP SCH (04:00)
[2016-07-29] MEDS: LORazepam 2 MG/ML VIAL IV PUSH PRN ×5 (04:38→21:14)
[2016-07-29 05:53] LABS: BASOPHIL % 0.5 % (0.0-2.0); HEMATOCRIT 35.9 % (39.0-51.0); LYMPH % 14.1 % (9.0-44.0); LYMPHOCYTE # 0.6 TH/MM3 (1.0-4.8); MEAN CELL VOLUME 107.1 FL (80.0-100.0); MEAN CORPUSCULAR HEMOGLOBIN 36.9 PG (27.0-34.0); MEAN CORPUSCULAR HGB CONC 34.4 % (32.0-36.0); MONO % 10.8 % (0.0-8.0); NEUT % 74.6 % (16.0-70.0); PLATELET COUNT 26 TH/MM3 (150-450); RED BLOOD COUNT 3.35 MIL/MM3 (4.50-5.90); RED CELL DISTRIBUTION WIDTH 14.1 % (11.6-17.2); WHITE BLOOD COUNT 4.1 TH/MM3 (4.0-11.0)
[2016-07-29 06:02] LABS: HEMO FLAGS AUTO DIFF
[2016-07-29 06:20] LABS: BICARBONATE 24.3 MEQ/L (21.0-32.0); MAGNESIUM 1.6 MG/DL (1.5-2.5); POTASSIUM 3.2 MEQ/L (3.5-5.1)
[2016-07-29] MEDS: HALOPERIDOL LACTATE 5 MG/ML AMP IM PRN ×3 (07:32→11:19)
[2016-07-29 07:53] LABS: BANDS 20 % (0-6); NEUTROPHIL # MANUAL DIFF 3.9 TH/MM3 (1.8-7.7); PLATELET ESTIMATE SMEAR LOW (NORMAL); PLATELET MORPHOLOGY NORMAL (NORMAL); POLYS (SEG NEUTROPHILS) 75 % (16-70); SCAN/DIFF FINAL DIFF MANUAL; WBC DIFF SAMPLE 100
[2016-07-29] MEDS: MAGNESIUM OXIDE 400 MG TAB PO SCH ×2 (08:30→21:00)
[2016-07-29] MEDS ORDERED: DEXTROSE 50% IN WATER 50 ML VIAL(D50) IV PUSH PRN (08:45)
[2016-07-29] MEDS ORDERED: GLUCAGON 1 MG/ML VIAL OTHER PRN (08:45)
--- NOTE | 2016-07-29 09:47 | PD.ONC.PN ---
Subjective Subjective Remarks Tmax 102.4 this am. No obvious bleeding. Per RN he wakes up after sedation has been turned off for about 30-45 minutes. He remains confused. Objective Data Date Time Temp Pulse Resp B/P Pulse Ox O2 Delivery O2 Flow Rate FiO2 07/29/16 08:02 94 Nasal Cannula 4.00 07/29/16 07:35 91 Nasal Cannula 2.00 07/29/16 07:35 102.4 07/29/16 06:00 99 07/29/16 04:00 92 07/29/16 04:00 99.0 92 18 106/58 97 07/29/16 04:00 97 Nasal Cannula 2.00 07/29/16 02:00 99 07/29/16 00:00 96 Nasal Cannula 2.00 07/29/16 00:00 100.9 100 20 116/60 96 07/29/16 00:00 100 07/28/16 22:00 98 07/28/16 20:00 96 Nasal Cannula 4.00 07/28/16 20:00 96 Nasal Cannula 2.00 07/28/16 20:00 103 07/28/16 20:00 100.9 103 18 111/67 96 07/28/16 18:19 Nasal Cannula 4.00 07/28/16 18:00 101 07/28/16 16:00 97 Nasal Cannula 2.00 07/28/16 16:00 93 07/28/16 16:00 100.7 93 16 93/60 97 07/28/16 14:00 134 07/28/16 12:00 94 Nasal Cannula 2.00 07/28/16 12:00 94 07/28/16 12:00 103.0 94 22 113/62 94 07/28/16 10:00 94 Nasal Cannula 2.00 07/28/16 10:00 86 07/29/16 07/29/16 07/29/16 07:00 15:00 23:00 Intake Total 891 ml Output Total 750 ml Balance 141 ml Result Diagram: 07/29/16 0456 07/29/16 0456 Laboratory Results Laboratory Tests Test 07/28/16 07/28/16 07/29/16 13:10 13:15 04:56 Blood Type B NEGATIVE B NEGATIVE Prothrombin Time 12.2 SEC Prothromb Time International 1.1 RATIO Ratio Activated Partial 38.0 SEC Thromboplast Time Fibrinogen 375 mg/dL Blood Bank Comment White Blood Count 4.1 TH/MM3 Red Blood Count 3.35 MIL/MM3 Hemoglobin 12.4 GM/DL Hematocrit 35.9 % Mean Corpuscular Volume 107.1 FL Mean Corpuscular Hemoglobin 36.9 PG Mean Corpuscular Hemoglobin 34.4 % Concent Red Cell Distribution Width 14.1 % Platelet Count 26 TH/MM3 Mean Platelet Volume 9.1 FL Neutrophils (%) (Auto) 74.6 % Lymphocytes (%) (Auto) 14.1 % Monocytes (%) (Auto) 10.8 % Eosinophils (%) (Auto) 0.0 % Basophils (%) (Auto) 0.5 % Neutrophils # (Auto) 3.0 TH/MM3 Lymphocytes # (Auto) 0.6 TH/MM3 Monocytes # (Auto) 0.4 TH/MM3 Eosinophils # (Auto) 0.0 TH/MM3 Basophils # (Auto) 0.0 TH/MM3 CBC Comment AUTO DIFF Differential Total Cells 100 Counted Neutrophils % (Manual) 75 % Band Neutrophils % 20 % Lymphocytes % 2 % Monocytes % 3 % Neutrophils # (Manual) 3.9 TH/MM3 Differential Comment FINAL DIFF MANUAL Platelet Estimate LOW Platelet Morphology Comment NORMAL Sodium Level 136 MEQ/L Potassium Level 3.2 MEQ/L Chloride Level 100 MEQ/L Carbon Dioxide Level 24.3 MEQ/L Anion Gap 12 MEQ/L Blood Urea Nitrogen 5 MG/DL Creatinine 0.38 MG/DL Estimat Glomerular Filtration 239 ML/MIN Rate Random Glucose 104 MG/DL Calcium Level 8.1 MG/DL Phosphorus Level 2.1 MG/DL Magnesium Level 1.6 MG/DL Culture Results Microbiology Date/Time Procedure Status Source Growth 07/26/16 20:40 Aerobic Blood Culture - Preliminary Resulted Blood Peripheral NO GROWTH IN 2 DAYS 07/26/16 20:40 Anaerobic Blood Culture - Preliminary Resulted Blood Peripheral NO GROWTH IN 2 DAYS 07/26/16 20:45 Aerobic Blood Culture - Preliminary Resulted Blood Peripheral NO GROWTH IN 2 DAYS 07/26/16 20:45 Anaerobic Blood Culture - Preliminary Resulted Blood Peripheral NO GROWTH IN 2 DAYS 07/27/16 13:08 Legionella Antigen - Final Complete Urine Random Urine PRESUMPTIVE NEGATIVE FOR LEGIONELLA P... 07/27/16 13:08 Streptococcus pneumoniae Antigen (M - Final Complete Urine Random Urine PRESUMPTIVE NEGATIVE FOR STREPTOCOCCU... Imaging Studies Last Impressions Head CT 07/28/16 0000 Signed Impressions: Service Date/Time: Thursday, July 28, 2016 11:31 - CONCLUSION: Cerebral atrophy without acute abnormality. Adam Young MD Liver Ultrasound 07/27/16 0000 Signed Impressions: Service Date/Time: Wednesday, July 27, 2016 12:07 - CONCLUSION: 1. Enlarged , echogenic liver suggesting some fatty infiltration. 2. Limited visualization of the pancreas with nonvisualization of the spleen. 3. Otherwise negative. Ki Carlos MD Chest X-Ray 07/26/16 0000 Signed Impressions: Service Date/Time: July 19:17 - CONCLUSION: 1. Focal infiltrate right lung base most characteristic of a bronchopneumonia in the right middle lobe. Augustine Rios MD Administered Medications Medications (Trade) Dose Ordered Sig/Marin Route PRN Reason Start Time Stop Time Status Last Admin Dose Admin Multivitamins 10 ml/Folic Acid 1 mg/Sodium Chloride 510.2 ml @ 125 mls/hr Q24H IV 07/26/16 22:00 07/31/16 21:59 07/28/16 22:09 Thiamine HCl/ Sodium Chloride (Thiamine Inj/NS Inj) 101 ml @ 100 mls/hr Q24H IV 07/27/16 21:00 07/30/16 20:59 07/28/16 21:08 Lorazepam (Ativan) 1 mg Q4H PRN PO CIWA 8 - 10 07/26/16 20:30 07/27/16 10:16 Lorazepam (Ativan Inj) 1 mg Q4H PRN IV PUSH CIWA 8 - 10 07/26/16 20:30 07/28/16 13:21 Lorazepam (Ativan Inj) 2 mg Q2H PRN IV PUSH CIWA 11-14 07/26/16 20:30 07/29/16 07:31 Lorazepam (Ativan Inj) 2 mg Q1H PRN IV PUSH CIWA 15-20 07/26/16 20:30 07/27/16 23:38 Lorazepam (Ativan Inj) 2 mg Q15M PRN IV PUSH CIWA > 20 07/26/16 20:30 07/28/16 15:03 Haloperidol Lactate (Haldol Inj) 2 mg Q15M PRN IM SEE LABEL COMMENTS 07/26/16 20:30 07/29/16 07:32 IV Flush (NS Flush) 2 ml BID FLUSH 07/26/16 21:00 07/28/16 21:09 Acetaminophen (Tylenol) 650 mg Q6H PRN PO FEVER/PAIN SCALE 1 TO 2 07/26/16 20:30 07/28/16 13:13 Magnesium Oxide 400 mg 400 mg Q12HR PO 07/27/16 12:15 07/28/16 21:09 Dexmedetomidine HCl (Precedex Inj) 50 ml @ 0 mls/hr TITRATE IV 07/27/16 21:00 07/29/16 06:23 Chlorhexidine Gluconate 3 pack 3 pack DAILY@04 TOP 07/28/16 04:00 08/01/16 04:01 07/29/16 04:00 Potassium Chloride 100 ml @ 50 mls/hr Q2H PRN IV For Potassium 2.8 - 3.2 mEq/L 07/28/16 08:00 07/28/16 13:13 Sodium Phosphate 30 mmol/Sodium Chloride 250 ml @ 42 mls/hr UNSCH PRN IV For Phosphorus < 2.5 mg/dL 07/28/16 08:00 07/28/16 16:48 Potassium Chloride/Sodium Chloride (NS + KCl 20 Meq Inj) 1,000 ml @ 84 mls/hr [id number] IV 07/28/16 15:15 07/28/16 16:36 Objective Remarks GENERAL: Disheveled older male, lying in bed restrained. SKIN: Warm and dry. Multiple ecchymoses to BUE. HEAD: Normocephalic. EYES: No injection or drainage. NECK: Supple, trachea midline. CARDIOVASCULAR: +S1/S2. RESPIRATORY: Rhonchi throughout. GASTROINTESTINAL: Abdomen soft, non-tender, nondistended. EXTREMITIES: No edema. SCD's to BLE. NEUROLOGICAL: Sedated on precedex. Difficult to assess. Assessment/Plan Assessment 51 y/o male who presents to the ER in alcohol withdrawal. Plan CT scan of the brain showed no acute intracranial abnormality. Unable to give platelets due to no one to consent. However his platelets have improved today and per the RN he has had no obvious bleeding. Will hold off for now. It is unlikley that he is in acute DIC as his fibrinogen is normal. His coags are prolonged most likely due to his liver function. We will continue to follow his platelets. Daily CBC. Attending Statement The exam, history, and the medical decision-making described in the above note were completed with the assistance of the mid-level provider. I reviewed and agree with the findings presented. I attest that I had a [id number] encounter with the patient on the same day, and personally performed and documented my assessment and findings in the medical record. remains sedated. plat increased and no bleeding. will follow plat count and suspect it is due to the acute toxicity of large amounts of etoh. Claudia Zamora Jul 29, 2016 09:47 Tien Wellington MD Jul 29, 2016 17:05
[2016-07-29] MEDS: AZTREONAM INJ 2,000 MG in SODIUM CHLORIDE 0.9% INJ 100 ML IV SCH ×2 (10:00→17:54)
[2016-07-29] MEDS: AZITHROMYCIN INJ 500 MG in SODIUM CHLOR 0.9% 250 ML INJ 250 ML IV SCH (10:18)
[2016-07-29] MEDS: SODIUM CHLORIDE 0.9% FLUSH 5 ML FLUSH FLUSH SCH ×2 (10:19→22:45)
[2016-07-29] MEDS: POTASSIUM CHLOR 20 MEQ PREMIX 100 ML IV PRN ×4 (10:20→18:38)
[2016-07-29] MEDS: NS + KCL 20 MEQ INJ 1,000 ML IV SCH (12:36)
--- NOTE | 2016-07-29 14:42 | HHI.PR ---
Subjective Remarks F/u alcohol WD. Currently sedated on Precedex. Febrile this am. He appears with labored breathing. Discussed with RN to discontinue IV fluids and obtain stat chest x-ray Objective Vitals Vital Signs Date Time Temp Pulse Resp B/P Pulse Ox O2 Delivery O2 Flow Rate FiO2 07/29/16 12:00 90 07/29/16 12:00 99.7 90 24 90/54 94 07/29/16 12:00 94 Nasal Cannula 4.00 07/29/16 10:00 100 07/29/16 08:02 94 Nasal Cannula 4.00 07/29/16 08:00 94 Nasal Cannula 4.00 07/29/16 08:00 100 07/29/16 08:00 101 23 116/56 94 07/29/16 07:35 91 Nasal Cannula 2.00 07/29/16 07:35 102.4 07/29/16 06:00 99 07/29/16 04:00 92 07/29/16 04:00 99.0 92 18 106/58 97 07/29/16 04:00 97 Nasal Cannula 2.00 07/29/16 02:00 99 07/29/16 00:00 96 Nasal Cannula 2.00 07/29/16 00:00 100.9 100 20 116/60 96 07/29/16 00:00 100 07/28/16 22:00 98 07/28/16 20:00 96 Nasal Cannula 4.00 07/28/16 20:00 96 Nasal Cannula 2.00 07/28/16 20:00 103 07/28/16 20:00 100.9 103 18 111/67 96 07/28/16 18:19 Nasal Cannula 4.00 07/28/16 18:00 101 07/28/16 16:00 97 Nasal Cannula 2.00 07/28/16 16:00 93 07/28/16 16:00 100.7 93 16 93/60 97 I/O 07/28/16 07/28/16 07/28/16 07/29/16 07/29/16 07/29/16 07:00 15:00 23:00 07:00 15:00 23:00 Intake Total 2194 ml 273 ml 892 ml 891 ml 1239 ml Output Total 1200 ml 550 ml 600 ml 750 ml 700 ml Balance 994 ml -277 ml 292 ml 141 ml 539 ml IV Total 2194 ml 273 ml 892 ml 891 ml 1239 ml Output Urine Total 1200 ml 550 ml 600 ml 750 ml 700 ml # Bowel Movements 2 0 0 0 Result Diagram: 07/29/166 07/29/166 Imaging Last Impressions Head CT 07/28/16 0000 Signed Impressions: Service Date/Time: Thursday, July 28, 2016 11:31 - CONCLUSION: Cerebral atrophy without acute abnormality. Adam Young MD Liver Ultrasound 07/27/16 0000 Signed Impressions: Service Date/Time: Wednesday, July 27, 2016 12:07 - CONCLUSION: 1. Enlarged , echogenic liver suggesting some fatty infiltration. 2. Limited visualization of the pancreas with nonvisualization of the spleen. 3. Otherwise negative. Ki Carlos MD Chest X-Ray 07/26/16 0000 Signed Impressions: Service Date/Time: July 19:17 - CONCLUSION: 1. Focal infiltrate right lung base most characteristic of a bronchopneumonia in the right middle lobe. Augustine Rios MD Objective Remarks GENERAL: Middle-aged white male who is critically ill, Skin: No lesions dry and warm HEENT: PERRLA, EOMI. No scleral icterus or conjunctival pallor. No lid lag or facial droop. CARDIOVASCULAR: Tachycardic No obvious murmurs to auscultation. RESPIRATORY: No obvious rhonchi or wheezing. Bilateral crackles. Breath sounds equal bilaterally. GASTROINTESTINAL: Abdomen soft, non-tender, nondistended. BS normal. MUSCULOSKELETAL: Extremities without clubbing, cyanosis, or edema. No obvious deformities. NEUROLOGICAL: Sedated. No focal neurologic deficits. Moving both upper and lower extremities spontaneously. A/P Problem List: (1) Alcohol withdrawal ICD Code: F10.239 Status: Acute (2) Thrombocytopenia ICD Code: D69.6 Status: Acute (3) Hypomagnesemia ICD Code: E83.42 Status: Acute (4) Hypokalemia ICD Code: E87.6 Status: Acute (5) PNA (pneumonia) ICD Code: J18.9 Status: Acute (6) Tobacco abuse ICD Code: Z72.0 Status: Acute Assessment and Plan 1. Alcohol Withdrawal: +Alcohol Abuse w/ Acute Withdrawal, last drink approx 12pm 07/26/16. Alcohol 30. S/p Ativan and Thiamine in ER. Seizure Precautions, CIWA Protocol, Thiamine/MVT/Folate replacement. IVF for hydration. Continue Precedex and monitor neuro and respiratory status. Patient still confused with tremors actively withdrawing 2. Hypokalemia: K+ 3.2, s/p replacement in ER, will recheck and replace as needed. Also replace phosphorus 3. Hypomagnesemia: Mg 1.1, s/p replacement. Recheck in am and replace as needed. 4. Severe sepsis PNA: CXR w/ RLL and RML infiltrate, images reviewed by me. S /p Solu-Medrol and DuoNeb in ER for wheezing, now resolved. Continue IV Levaquin, DuoNeb prn. Check sputum, negative urinary Legionella and pneumococcal antigen. Patient with labored breathing will discontinue IV fluids and obtain stat chest x-ray to evaluate for fluid overload. Check BNP. Consider diuresis 5. Thrombocytopenia: Presumably chronic secondary to alcohol abuse and splenic sequestration. No active bleeding at this time. Monitor closely. Repeat labs in am. Spleen not visualized on sonogram, liver with fatty infiltration. Fibrinogen level within normal limits. Head CT without acute findings. Stable 6. Tobacco Abuse: Counselled. Ativan prn. 7. FEN. IV fluids plus by mouth. Consider tube feeding though I anticipate improvement of oral intake once Precedex has been discontinued DVT Prophylaxis: Pharmacologic contraindication in light of thrombocytopenia. Discharge Planning Patient is critically ill Keep in ICU especially on Precedex drip, closely monitor neuro and respiratory status. Critical care time spent 40 minutes Problem Qualifiers (1) Alcohol withdrawal: Qualified Code: F10.230 - Alcohol withdrawal, uncomplicated (2) PNA (pneumonia): Qualified Code: J18.1 - Pneumonia of right middle lobe due to infectious organism Mirza Stock MD Jul 29, 2016 14:42
--- NOTE | 2016-07-29 15:46 | RADRPT ---
EXAM DATE/TIME: 07/29/2016 14:58 [facility] COMPARISON: CHEST SINGLE AP, July 26, 2016, 19:17. INDICATIONS : Shortness of breath. MEDICAL HISTORY : None. SURGICAL HISTORY : None. ENCOUNTER: Subsequent ACUITY: 3 days PAIN SCORE: Non-responsive. LOCATION: Bilateral chest FINDINGS: There is now dense consolidation at the right lung base most characteristic of pneumonia or aspiratio n. Minimal left basilar opacity also present. Probable small right effusion. CONCLUSION: 1. Development of dense consolidation in the right lung predominantly inferiorly most characteristic of pneumonia or aspiration. Comparison with July 26. Augustine Rios MD on July 29, 2016 at 15:43 Board Certified Radiologist. This report was verified electronically.
[2016-07-29] MEDS: THIAMINE INJ 100 MG in SODIUM CHLORIDE 0.9% INJ 100 ML IV SCH (22:46)
[2016-07-29] MEDS: MULTIVITAMIN INJ 10 ML, FOLIC ACID INJ 1 MG in SODIUM CHLORID 0.9% 500 ML INJ 500 ML IV SCH (22:46)
[2016-07-30] VITALS (13 sets, daily range): BP systolic 104–132; BP diastolic 55–69; PULSE 91–131; RESP 20–24; TEMP 100.6–101.5; O2SAT 91–96
[2016-07-30] MEDS: DEXMEDETOMIDINE INJ 50 ML IV SCH ×7 (00:13→20:05)
[2016-07-30] MEDS: AZTREONAM INJ 2,000 MG in SODIUM CHLORIDE 0.9% INJ 100 ML IV SCH ×3 (01:10→18:08)
[2016-07-30 03:54] LABS: AUTOMATED NEUTROPHIL # 3.5 TH/MM3 (1.8-7.7); BASOPHIL % 0.5 % (0.0-2.0); EOSINOPHIL % 0.1 % (0.0-4.0); HEMATOCRIT 38.4 % (39.0-51.0); LYMPH % 16.9 % (9.0-44.0); LYMPHOCYTE # 0.8 TH/MM3 (1.0-4.8); MEAN CELL VOLUME 107.9 FL (80.0-100.0); MEAN CORPUSCULAR HEMOGLOBIN 36.8 PG (27.0-34.0); MEAN CORPUSCULAR HGB CONC 34.1 % (32.0-36.0); MONO % 11.2 % (0.0-8.0); NEUT % 71.3 % (16.0-70.0); PLATELET COUNT 38 TH/MM3 (150-450); RED BLOOD COUNT 3.56 MIL/MM3 (4.50-5.90); RED CELL DISTRIBUTION WIDTH 14.4 % (11.6-17.2); WHITE BLOOD COUNT 4.9 TH/MM3 (4.0-11.0)
[2016-07-30 03:59] LABS: HEMO FLAGS AUTO DIFF
[2016-07-30] MEDS: CHLORHEXIDINE GLUCONATE 2 % 1 PACK (2 CLOTHS)(taper/protocol) TOP SCH ×2 (04:00→20:09)
[2016-07-30 04:19] LABS: BICARBONATE 23.2 MEQ/L (21.0-32.0); MAGNESIUM 1.6 MG/DL (1.5-2.5); POTASSIUM 4.1 MEQ/L (3.5-5.1)
[2016-07-30] MEDS: NS + KCL 20 MEQ INJ 1,000 ML IV SCH (05:08)
[2016-07-30 06:57] LABS: BANDS 10 % (0-6); POLYS (SEG NEUTROPHILS) 72 % (16-70); WBC DIFF SAMPLE 100
[2016-07-30 06:59] LABS: PLATELET ESTIMATE SMEAR LOW (NORMAL); PLATELET MORPHOLOGY NORMAL (NORMAL); SCAN/DIFF FINAL DIFF MANUAL
[2016-07-30] MEDS: THIAMINE HCL 100 MG TAB PO SCH (09:00)
[2016-07-30] MEDS: MAGNESIUM OXIDE 400 MG TAB PO SCH ×2 (09:00→20:06)
[2016-07-30] MEDS: SODIUM CHLORIDE 0.9% FLUSH 5 ML FLUSH FLUSH SCH ×2 (10:25→20:06)
[2016-07-30] MEDS: AZITHROMYCIN INJ 500 MG in SODIUM CHLOR 0.9% 250 ML INJ 250 ML IV SCH ×2 (10:28→20:05)
--- NOTE | 2016-07-30 13:40 | HHI.PR ---
Subjective Remarks Follow-up sepsis and pneumonia. Still febrile aztreonam and Zithromax started yesterday. Patient still sedated on Precedex drip he tries to wake up and follow simple commands. Discussed with RN wean and discontinue Precedex drip today Objective Vitals Vital Signs Date Time Temp Pulse Resp B/P Pulse Ox O2 Delivery O2 Flow Rate FiO2 07/30/16 12:00 101.1 96 22 104/55 93 07/30/16 12:00 93 Nasal Cannula 4.00 07/30/16 12:00 96 07/30/16 10:00 97 07/30/16 08:43 92 Nasal Cannula 5.00 07/30/16 08:00 96 Nasal Cannula 4.00 07/30/16 08:00 115 07/30/16 08:00 101.5 115 20 120/67 96 07/30/16 06:00 104 07/30/16 04:00 95 07/30/16 04:00 95 Nasal Cannula 4.00 07/30/16 04:00 101.2 98 24 132/69 95 07/30/16 02:00 96 07/30/16 00:00 100.9 96 22 117/62 96 07/30/16 00:00 91 07/30/16 00:00 96 Nasal Cannula 4.00 07/29/16 22:00 104 07/29/16 20:00 95 07/29/16 20:00 101.0 95 24 117/65 95 07/29/16 20:00 95 Nasal Cannula 4.00 07/29/16 19:31 96 Nasal Cannula 4.00 07/29/16 18:00 91 07/29/16 16:00 100.6 92 22 109/65 96 07/29/16 16:00 92 07/29/16 16:00 96 Nasal Cannula 4.00 07/29/16 14:00 87 I/O 07/29/16 07/29/16 07/29/16 07/30/16 07/30/16 07/30/16 07:00 15:00 23:00 07:00 15:00 23:00 Intake Total 891 ml 1239 ml 590 ml 1407 ml Output Total 750 ml 700 ml 800 ml 750 ml Balance 141 ml 539 ml -210 ml 657 ml IV Total 891 ml 1239 ml 590 ml 1407 ml Output Urine Total 750 ml 700 ml 800 ml 750 ml # Bowel Movements 0 0 0 0 Result Diagram: 07/30/1631807/30/16318 Imaging Last Impressions Chest X-Ray 07/29/16 0000 Signed Impressions: Service Date/Time: Friday, July 29, 2016 14:58 - CONCLUSION: 1. Development of dense consolidation in the right lung predominantly inferiorly most characteristic of pneumonia or aspiration. Comparison with July 26. Augustine Rios MD Head CT 07/28/16 0000 Signed Impressions: Service Date/Time: Thursday, July 28, 2016 11:31 - CONCLUSION: Cerebral atrophy without acute abnormality. Adam Young MD Liver Ultrasound 07/27/16 0000 Signed Impressions: Service Date/Time: Wednesday, July 27, 2016 12:07 - CONCLUSION: 1. Enlarged , echogenic liver suggesting some fatty infiltration. 2. Limited visualization of the pancreas with nonvisualization of the spleen. 3. Otherwise negative. Ki Carlos MD Objective Remarks GENERAL: Middle-aged white male who is in no distress Skin: No lesions dry and warm HEENT: PERRLA, EOMI. No scleral icterus or conjunctival pallor. No lid lag or facial droop. CARDIOVASCULAR: Tachycardic No obvious murmurs to auscultation. RESPIRATORY: No obvious rhonchi or wheezing. Bilateral crackles. Breath sounds equal bilaterally. GASTROINTESTINAL: Abdomen soft, non-tender, nondistended. BS normal. MUSCULOSKELETAL: Extremities without clubbing, cyanosis, or edema. No obvious deformities. NEUROLOGICAL: Sedated but arousable following simple commands. No focal neurologic deficits. Moving both upper and lower extremities spontaneously but with generalized weakness. A/P Problem List: (1) Alcohol withdrawal ICD Code: F10.239 Status: Acute (2) Thrombocytopenia ICD Code: D69.6 Status: Acute (3) Hypomagnesemia ICD Code: E83.42 Status: Acute (4) Hypokalemia ICD Code: E87.6 Status: Acute (5) PNA (pneumonia) ICD Code: J18.9 Status: Acute (6) Tobacco abuse ICD Code: Z72.0 Status: Acute Assessment and Plan 1. Alcohol Withdrawal: +Alcohol Abuse w/ Acute Withdrawal, last drink approx 12pm 07/26/16. Alcohol 30. S/p Ativan and Thiamine in ER. Seizure Precautions, CIWA Protocol, Thiamine/MVT/Folate replacement. IVF for hydration. Improved tremors. We'll wean and discontinue Precedex 2. Hypokalemia: K+ 3.2, s/p replacement in ER, will recheck and replace as needed. Also replace phosphorus 3. Hypomagnesemia: Mg 1.1, s/p replacement. Recheck in am and replace as needed. 4. Severe sepsis PNA: CXR w/ RLL and RML infiltrate, images reviewed by me. S /p Solu-Medrol and DuoNeb in ER for wheezing, now resolved. DuoNeb prn. Check sputum, negative urinary Legionella and pneumococcal antigen. Still febrile, switched to IV aztreonam and Zithromax blood cultures negative to date 5. Thrombocytopenia: Presumably chronic secondary to alcohol abuse and splenic sequestration. No active bleeding at this time. Monitor closely. Repeat labs in am. Spleen not visualized on sonogram, liver with fatty infiltration. Fibrinogen level within normal limits. Head CT without acute findings. Improving 6. Tobacco Abuse: Counselled. Ativan prn. 7. FEN. IV fluids plus by mouth. Consider tube feeding though I anticipate improvement of oral intake once Precedex has been discontinued . Dietitian consult for tube feeding DVT Prophylaxis: Pharmacologic contraindication in light of thrombocytopenia. Discharge Planning Keep in ICU especially on Precedex drip, closely monitor neuro and respiratory status. Problem Qualifiers (1) Alcohol withdrawal: Qualified Code: F10.230 - Alcohol withdrawal, uncomplicated (2) PNA (pneumonia): Qualified Code: J18.1 - Pneumonia of right middle lobe due to infectious organism Mirza Stock MD Jul 30, 2016 13:40
[2016-07-30] MEDS: D5-NS + KCL 20 MEQ INJ 1,000 ML IV SCH ×2 (16:03→20:06)
[2016-07-30] MEDS: LORazepam 2 MG/ML VIAL IV PUSH PRN ×3 (16:03→18:38)
[2016-07-30] MEDS: MULTIVITAMIN INJ 10 ML, FOLIC ACID INJ 1 MG in SODIUM CHLORID 0.9% 500 ML INJ 500 ML IV SCH (20:06)
[2016-07-31] VITALS (14 sets, daily range): BP systolic 104–117; BP diastolic 57–71; PULSE 91–127; RESP 17–26; TEMP 98.8–101.8; O2SAT 92–97
[2016-07-31] MEDS: DEXMEDETOMIDINE INJ 50 ML IV SCH ×5 (00:54→21:52)
[2016-07-31] MEDS: AZTREONAM INJ 2,000 MG in SODIUM CHLORIDE 0.9% INJ 100 ML IV SCH ×3 (00:54→20:24)
[2016-07-31] MEDS: LORazepam 2 MG/ML VIAL IV PUSH PRN ×7 (04:16→14:43)
[2016-07-31] MEDS: D5-NS + KCL 20 MEQ INJ 1,000 ML IV SCH ×2 (04:34→19:48)
[2016-07-31] MEDS: metroNIDAZOLE 500 MG INJ 100 ML IV SCH ×3 (06:20→21:52)
[2016-07-31 07:35] LABS: BICARBONATE 26.1 MEQ/L (21.0-32.0); MAGNESIUM 1.7 MG/DL (1.5-2.5); POTASSIUM 3.5 MEQ/L (3.5-5.1)
[2016-07-31 07:42] LABS: AUTOMATED NEUTROPHIL # 5.8 TH/MM3 (1.8-7.7); BASOPHIL % 0.2 % (0.0-2.0); HEMATOCRIT 39.5 % (39.0-51.0); LYMPH % 16.1 % (9.0-44.0); LYMPHOCYTE # 1.3 TH/MM3 (1.0-4.8); MEAN CORPUSCULAR HEMOGLOBIN 36.8 PG (27.0-34.0); MEAN CORPUSCULAR HGB CONC 32.9 % (32.0-36.0); NEUT % 73.7 % (16.0-70.0); PLATELET COUNT 59 TH/MM3 (150-450); RED BLOOD COUNT 3.52 MIL/MM3 (4.50-5.90); RED CELL DISTRIBUTION WIDTH 14.8 % (11.6-17.2); WHITE BLOOD COUNT 7.9 TH/MM3 (4.0-11.0)
[2016-07-31 07:46] LABS: HEMO FLAGS AUTO DIFF
[2016-07-31] MEDS: RESP: ALBUTEROL 2.5 MG/IPRATROPIUM 0.5 MG NEB (SCH) NEB ×4 (08:47→20:14)
[2016-07-31] MEDS: THIAMINE HCL 100 MG TAB PO SCH (09:00)
[2016-07-31] MEDS: MAGNESIUM OXIDE 400 MG TAB PO SCH ×2 (09:00→21:00)
[2016-07-31] MEDS: SODIUM CHLORIDE 0.9% FLUSH 5 ML FLUSH FLUSH SCH ×2 (09:01→19:50)
[2016-07-31] MEDS: AZITHROMYCIN INJ 500 MG in SODIUM CHLOR 0.9% 250 ML INJ 250 ML IV SCH (09:03)
[2016-07-31] MEDS: SODIUM PHOSPHATE INJ 30 MMOL in SODIUM CHLOR 0.9% 250 ML INJ 240 ML IV PRN (09:03)
[2016-07-31 09:24] LABS: BANDS 7 % (0-6); NEUTROPHIL # MANUAL DIFF 6.6 TH/MM3 (1.8-7.7); PLATELET ESTIMATE SMEAR LOW (NORMAL); PLATELET MORPHOLOGY NORMAL (NORMAL); POLYS (SEG NEUTROPHILS) 77 % (16-70); SCAN/DIFF FINAL DIFF MANUAL; TEARDROP RBCS 1+ (NORMAL); WBC DIFF SAMPLE 100
--- NOTE | 2016-07-31 11:36 | HHI.PR ---
Subjective Remarks Follow-up pneumonia and alcohol withdrawal. He is off Precedex drip appears lethargic tries to follow simple commands. He is tachycardic and febrile. Discussed with RN Objective Vitals Vital Signs Date Time Temp Pulse Resp B/P Pulse Ox O2 Delivery O2 Flow Rate FiO2 07/31/16 08:49 97 Nasal Cannula 4.00 07/31/16 06:00 104 07/31/16 04:00 92 Nasal Cannula 4.00 07/31/16 04:00 101.8 93 17 105/59 95 07/31/16 04:00 93 07/31/16 02:00 91 07/31/16 00:00 99 07/31/16 00:00 92 Nasal Cannula 4.00 07/31/16 00:00 101.1 99 18 109/58 92 07/30/16 22:00 112 07/30/16 20:00 100.6 101 20 108/65 91 07/30/16 20:00 91 Nasal Cannula 4.00 07/30/16 20:00 101 07/30/16 18:00 131 07/30/16 16:00 128 07/30/16 16:00 94 Nasal Cannula 4.00 07/30/16 16:00 101.4 128 24 115/64 94 07/30/16 14:00 96 07/30/16 12:00 101.1 96 22 104/55 93 07/30/16 12:00 93 Nasal Cannula 4.00 07/30/16 12:00 96 I/O 07/30/16 07/30/16 07/30/16 07/31/16 07/31/16 07/31/16 07:00 15:00 23:00 07:00 15:00 23:00 Intake Total 1407 ml 1449 ml 650 ml 566 ml Output Total 750 ml 1350 ml 700 ml 700 ml Balance 657 ml 99 ml -50 ml -134 ml IV Total 1407 ml 1449 ml 650 ml 566 ml Output Urine Total 750 ml 1350 ml 700 ml 700 ml # Bowel Movements 0 0 0 Result Diagram: 07/31/1612 07/31/1612 Imaging Last Impressions Chest X-Ray 07/29/16 0000 Signed Impressions: Service Date/Time: Friday, July 29, 2016 14:58 - CONCLUSION: 1. Development of dense consolidation in the right lung predominantly inferiorly most characteristic of pneumonia or aspiration. Comparison with July 26. Augustine Rios MD Head CT 07/28/16 0000 Signed Impressions: Service Date/Time: Thursday, July 28, 2016 11:31 - CONCLUSION: Cerebral atrophy without acute abnormality. Adam Young MD Liver Ultrasound 07/27/16 0000 Signed Impressions: Service Date/Time: Wednesday, July 27, 2016 12:07 - CONCLUSION: 1. Enlarged , echogenic liver suggesting some fatty infiltration. 2. Limited visualization of the pancreas with nonvisualization of the spleen. 3. Otherwise negative. Ki Carlos MD Objective Remarks GENERAL: Middle-aged white male who is critically ill Skin: No lesions dry and warm HEENT: PERRLA, EOMI. No scleral icterus or conjunctival pallor. No lid lag or facial droop. CARDIOVASCULAR: Tachycardic No obvious murmurs to auscultation. RESPIRATORY: No obvious rhonchi or wheezing. Right lung crackles. Breath sounds equal bilaterally. GASTROINTESTINAL: Abdomen soft, non-tender, nondistended. BS normal. MUSCULOSKELETAL: Extremities without clubbing, cyanosis, or edema. No obvious deformities. NEUROLOGICAL: Lethargic following simple commands. No focal neurologic deficits. Moving both upper and lower extremities spontaneously but with generalized weakness. Procedures none A/P Problem List: (1) Alcohol withdrawal ICD Code: F10.239 Status: Acute (2) Thrombocytopenia ICD Code: D69.6 Status: Acute (3) Hypomagnesemia ICD Code: E83.42 Status: Acute (4) Hypokalemia ICD Code: E87.6 Status: Acute (5) PNA (pneumonia) ICD Code: J18.9 Status: Acute (6) Tobacco abuse ICD Code: Z72.0 Status: Acute Assessment and Plan 1. Alcohol Withdrawal: +Alcohol Abuse w/ Acute Withdrawal, last drink approx 12pm 07/26/16. Alcohol 30. S/p Ativan and Thiamine in ER. Seizure Precautions, CIWA Protocol, Thiamine/MVT/Folate replacement. IVF for hydration. Improved tremors but still tachycardic. Restart Precedex at low doses 2. Hypokalemia and hypophosphatemia secondary to alcohol abuse. Replace per protocol. Repeat BMP and phosphorus in the morning 3. Hypomagnesemia: Mg 1.1, s/p replacement. Improved. Recheck in am and replace as needed. 4. Severe sepsis PNA: CXR w/ RLL and RML infiltrate, images reviewed by me. S /p Solu-Medrol and DuoNeb in ER for wheezing, now resolved. DuoNeb prn. Check sputum, negative urinary Legionella and pneumococcal antigen. Still febrile, continue IV aztreonam and Zithromax and add IV Flagyl to cover for aspiration pneumonia blood cultures negative to date 5. Thrombocytopenia: Presumably chronic secondary to alcohol abuse and splenic sequestration. No active bleeding at this time. Monitor closely. Repeat labs in am. Spleen not visualized on sonogram, liver with fatty infiltration. Fibrinogen level within normal limits. Head CT without acute findings. Improving 6. Tobacco Abuse: Counselled. Ativan prn. 7. FEN. IV fluids plus by mouth. Start tube feeding with Jevity 1.5. Aspiration precautions DVT Prophylaxis: Pharmacologic contraindication in light of thrombocytopenia. Discharge Planning Keep in ICU especially on Precedex drip, closely monitor neuro and respiratory status. He is critically ill critical care time spent 35 minutes Problem Qualifiers (1) Alcohol withdrawal: Qualified Code: F10.230 - Alcohol withdrawal, uncomplicated (2) PNA (pneumonia): Qualified Code: J18.1 - Pneumonia of right middle lobe due to infectious organism Mirza Stock MD Jul 31, 2016 11:36
[2016-08-01] VITALS (14 sets, daily range): BP systolic 94–128; BP diastolic 56–83; PULSE 89–124; RESP 19–25; TEMP 98.1–100.5; O2SAT 89–99
[2016-08-01] MEDS: AZTREONAM INJ 2,000 MG in SODIUM CHLORIDE 0.9% INJ 100 ML IV SCH ×3 (02:18→17:33)
[2016-08-01] MEDS: DEXMEDETOMIDINE INJ 50 ML IV SCH (04:23)
[2016-08-01] MEDS: CHLORHEXIDINE GLUCONATE 2 % 1 PACK (2 CLOTHS)(taper/protocol) TOP SCH (04:24)
[2016-08-01] MEDS: metroNIDAZOLE 500 MG INJ 100 ML IV SCH ×3 (06:03→20:25)
[2016-08-01] MEDS: RESP: ALBUTEROL 2.5 MG/IPRATROPIUM 0.5 MG NEB (SCH) NEB ×4 (07:30→20:56)
[2016-08-01] MEDS: THIAMINE HCL 100 MG TAB PO SCH (08:45)
[2016-08-01] MEDS: MAGNESIUM OXIDE 400 MG TAB PO SCH ×2 (08:45→20:25)
[2016-08-01] MEDS: AZITHROMYCIN INJ 500 MG in SODIUM CHLOR 0.9% 250 ML INJ 250 ML IV SCH (08:45)
[2016-08-01] MEDS: SODIUM CHLORIDE 0.9% FLUSH 5 ML FLUSH FLUSH SCH ×2 (08:46→20:25)
[2016-08-01] MEDS: D5-NS + KCL 20 MEQ INJ 1,000 ML IV SCH ×2 (08:46→20:26)
[2016-08-01] MEDS: SODIUM CHLORIDE 0.9% FLUSH 5 ML FLUSH FLUSH PRN (08:46)
[2016-08-01 12:20] LABS: AUTOMATED NEUTROPHIL # 12.6 TH/MM3 (1.8-7.7); BASOPHIL % 0.2 % (0.0-2.0); HEMATOCRIT 36.7 % (39.0-51.0); LYMPH % 4.5 % (9.0-44.0); LYMPHOCYTE # 0.6 TH/MM3 (1.0-4.8); MEAN CELL VOLUME 108.7 FL (80.0-100.0); MEAN CORPUSCULAR HGB CONC 33.1 % (32.0-36.0); MONO % 3.3 % (0.0-8.0); PLATELET COUNT 73 TH/MM3 (150-450); RED BLOOD COUNT 3.38 MIL/MM3 (4.50-5.90); RED CELL DISTRIBUTION WIDTH 15.1 % (11.6-17.2); WHITE BLOOD COUNT 13.7 TH/MM3 (4.0-11.0)
[2016-08-01 12:27] LABS: HEMO FLAGS AUTO DIFF
[2016-08-01 12:34] LABS: BICARBONATE 28.7 MEQ/L (21.0-32.0); MAGNESIUM 1.9 MG/DL (1.5-2.5); POTASSIUM 3.4 MEQ/L (3.5-5.1)
--- NOTE | 2016-08-01 13:03 | HHI.PR ---
Subjective Remarks Follow-up alcohol withdrawal and pneumonia. He is off Precedex drip since this morning. Still lethargic with right preferential gaze. His moving all extremities with painful stimuli. Discussed with RN Objective Vitals Vital Signs Date Time Temp Pulse Resp B/P Pulse Ox O2 Delivery O2 Flow Rate FiO2 08/01/16 12:00 107 08/01/16 10:00 103 08/01/16 08:00 98.1 97 22 94/56 99 08/01/16 08:00 97 08/01/16 08:00 99 Nasal Cannula 4.00 08/01/16 07:31 94 Nasal Cannula 4.00 08/01/16 06:00 101 08/01/16 04:00 98.7 99 21 117/83 89 08/01/16 04:00 94 Nasal Cannula 4.00 08/01/16 04:00 99 08/01/16 02:00 89 08/01/16 00:00 94 Nasal Cannula 4.00 08/01/16 00:00 98.3 96 20 111/61 94 08/01/16 00:00 96 07/31/16 22:00 97 07/31/16 20:14 94 Nasal Cannula 4.00 07/31/16 20:00 94 Nasal Cannula 4.00 07/31/16 20:00 100 07/31/16 20:00 98.8 100 18 105/59 94 07/31/16 18:00 105 07/31/16 16:00 93 Nasal Cannula 4.00 07/31/16 16:00 105 07/31/16 16:00 100.9 105 20 104/57 94 07/31/16 14:00 109 I/O 07/31/16 07/31/16 07/31/16 08/01/16 08/01/16 08/01/16 07:00 15:00 23:00 07:00 15:00 23:00 Intake Total 566 ml 1668 ml 863 ml 494 ml Output Total 700 ml 900 ml 375 ml 450 ml Balance -134 ml 768 ml 488 ml 44 ml IV Total 566 ml 1668 ml 863 ml 460 ml Tube Feeding 34 ml Output Urine Total 700 ml 900 ml 375 ml 450 ml # Bowel Movements 0 0 0 Result Diagram: 08/01/16 1133 08/01/16 1133 Objective Remarks GENERAL: Middle-aged white male who is critically ill Skin: No lesions dry and warm HEENT: PERRLA, EOMI. No scleral icterus or conjunctival pallor. No lid lag or facial droop. CARDIOVASCULAR: Tachycardic No obvious murmurs to auscultation. RESPIRATORY: Wheezing noted. Breath sounds equal bilaterally. GASTROINTESTINAL: Abdomen soft, non-tender, nondistended. BS normal. MUSCULOSKELETAL: Extremities without clubbing, cyanosis, or edema. No obvious deformities. NEUROLOGICAL: Lethargic not following simple commands. Right preferential gaze. Moving both upper and lower extremities with noxious stimuli but with generalized weakness. Procedures none A/P Problem List: (1) Alcohol withdrawal ICD Code: F10.239 Status: Acute (2) Thrombocytopenia ICD Code: D69.6 Status: Acute (3) Hypomagnesemia ICD Code: E83.42 Status: Acute (4) Hypokalemia ICD Code: E87.6 Status: Acute (5) PNA (pneumonia) ICD Code: J18.9 Status: Acute (6) Tobacco abuse ICD Code: Z72.0 Status: Acute Assessment and Plan 1. Alcohol Withdrawal: +Alcohol Abuse w/ Acute Withdrawal, last drink approx 12pm 07/26/16. Alcohol 30. S/p Ativan and Thiamine in ER. Seizure Precautions, CIWA Protocol, Thiamine/MVT/Folate replacement. IVF for hydration. Improved tremors discontinue Precedex. Patient with a right preferential gaze. Obtain head CT. Neurochecks 2. Hypokalemia and hypophosphatemia secondary to alcohol abuse. Replace per protocol. Repeat BMP and phosphorus in the morning 3. Hypomagnesemia: Mg 1.1, s/p replacement. Improved. Recheck in am and replace as needed. 4. Severe sepsis PNA: CXR w/ RLL and RML infiltrate, images reviewed by me. S /p Solu-Medrol and DuoNeb in ER for wheezing, now resolved. DuoNeb prn. Check sputum, negative urinary Legionella and pneumococcal antigen. Still febrile, continue IV aztreonam, Zithromax and IV Flagyl to cover for aspiration pneumonia blood cultures with GPR in one out of 8. We'll follow up cultures patient also with expiratory wheezes start IV steroids 5. Thrombocytopenia: Presumably chronic secondary to alcohol abuse and splenic sequestration. No active bleeding at this time. Monitor closely. Repeat labs in am. Spleen not visualized on sonogram, liver with fatty infiltration. Fibrinogen level within normal limits. Head CT without acute findings. Improving 6. Tobacco Abuse: Counselled. Ativan prn. 7. FEN. IV fluids plus by mouth. Continue tube feeding with Jevity 1.5 until oral intake improves. Aspiration precautions DVT Prophylaxis: Pharmacologic contraindication in light of thrombocytopenia. Discharge Planning Keep in ICU Problem Qualifiers (1) Alcohol withdrawal: Qualified Code: F10.230 - Alcohol withdrawal, uncomplicated (2) PNA (pneumonia): Qualified Code: J18.1 - Pneumonia of right middle lobe due to infectious organism Mirza Stock MD Aug 01, 2016 13:03
[2016-08-01 13:23] LABS: BANDS 13 % (0-6); NEUTROPHIL # MANUAL DIFF 12.9 TH/MM3 (1.8-7.7); POLYS (SEG NEUTROPHILS) 81 % (16-70); WBC DIFF SAMPLE 100
[2016-08-01 13:24] LABS: PLATELET ESTIMATE SMEAR LOW (NORMAL); PLATELET MORPHOLOGY NORMAL (NORMAL); SCAN/DIFF FINAL DIFF MANUAL; TOXIC GRANULATION 2+ (NORMAL); TOXIC VACUOLATION PRESENT (NONE SEEN)
--- NOTE | 2016-08-01 14:37 | RADRPT ---
EXAM DATE/TIME: 08/01/2016 14:08 [place] COMPARISON: No previous studies available for comparison. INDICATIONS : Seizures, no leftward gaze RADIATION DOSE: 56.35 CTDIvol (mGy) MEDICAL HISTORY : Alcohol withdrawal SURGICAL HISTORY : None. ENCOUNTER: Initial ACUITY: 1 day PAIN SCALE: 0/10 LOCATION: cranial TECHNIQUE: Multiple contiguous axial images were obtained of the head. Using automated exposure control and adj ustment of the mA and/or kV according to patient size, radiation dose was kept as low as reasonably a chievable to obtain optimal diagnostic quality images. FINDINGS: CEREBRUM: The ventricles are normal for age. No evidence of midline shift, mass lesion, hemorrhage or acute in farction. No extra-axial fluid collections are seen. POSTERIOR FOSSA: The cerebellum and brainstem are intact. The 4th ventricle is midline. The cerebellopontine angle i s unremarkable. EXTRACRANIAL: The visualized portion of the orbits is intact. Subcutaneous emphysema within the upper neck. SKULL: The calvaria is intact. No evidence of skull fracture. CONCLUSION: 1. No acute intracranial abnormality. 2. Subcutaneous emphysema in the upper neck Adam Young MD on August 01, 2016 at 14:35 Board Certified Radiologist. This report was verified electronically.
[2016-08-01] MEDS: POTASSIUM PHOSPHATE INJ 30 MMOL in SODIUM CHLOR 0.9% 250 ML INJ 250 ML IV PRN (15:44)
[2016-08-01] MEDS: methylPREDNISolone SOD SUCC 40 MG/1 ML VIAL IV PUSH SCH ×2 (15:44→20:24)
[2016-08-01] MEDS ORDERED: MAGNESIUM HYDROXIDE SUSP 30 ML CUP PO PRN (17:30)
[2016-08-01] MEDS ORDERED: DOCUSATE SODIUM 100 MG CAP PO PRN (17:30)
[2016-08-01] MEDS ORDERED: LACTULOSE SYRUP 20 GM/30 ML CUP PO PRN (17:30)
[2016-08-01] MEDS: DOCUSATE SODIUM 50 MG/SENNA 8.6 MG TAB PO SCH (20:25)
[2016-08-01] MEDS: ACETAMINOPHEN 325 MG TAB PO PRN (20:31)
[2016-08-02] VITALS (14 sets, daily range): BP systolic 129–152; BP diastolic 77–94; PULSE 103–133; RESP 15–25; TEMP 97.4–98.3; O2SAT 93–100
[2016-08-02] MEDS: RESP: ALBUTEROL 2.5 MG/IPRATROPIUM 0.5 MG NEB (PRN) NEB (02:12)
[2016-08-02] MEDS: AZTREONAM INJ 2,000 MG in SODIUM CHLORIDE 0.9% INJ 100 ML IV SCH ×3 (02:18→16:47)
[2016-08-02] MEDS: D5-NS + KCL 20 MEQ INJ 1,000 ML IV SCH (02:19)
[2016-08-02 04:07] LABS: AUTOMATED NEUTROPHIL # 11.9 TH/MM3 (1.8-7.7); HEMATOCRIT 33.7 % (39.0-51.0); LYMPH % 2.8 % (9.0-44.0); LYMPHOCYTE # 0.3 TH/MM3 (1.0-4.8); MEAN CORPUSCULAR HEMOGLOBIN 36.1 PG (27.0-34.0); MEAN CORPUSCULAR HGB CONC 33.4 % (32.0-36.0); MONO % 3.3 % (0.0-8.0); NEUT % 93.9 % (16.0-70.0); PLATELET COUNT 75 TH/MM3 (150-450); RED BLOOD COUNT 3.12 MIL/MM3 (4.50-5.90); WHITE BLOOD COUNT 12.6 TH/MM3 (4.0-11.0)
[2016-08-02 04:13] LABS: HEMO FLAGS AUTO DIFF
[2016-08-02 04:33] LABS: BICARBONATE 29.4 MEQ/L (21.0-32.0); MAGNESIUM 1.9 MG/DL (1.5-2.5); POTASSIUM 3.4 MEQ/L (3.5-5.1)
[2016-08-02] MEDS: methylPREDNISolone SOD SUCC 40 MG/1 ML VIAL IV PUSH SCH ×3 (05:08→22:55)
[2016-08-02] MEDS: metroNIDAZOLE 500 MG INJ 100 ML IV SCH ×3 (05:09→22:53)
[2016-08-02 06:57] LABS: BANDS 24 % (0-6); NEUTROPHIL # MANUAL DIFF 12.5 TH/MM3 (1.8-7.7); POLYS (SEG NEUTROPHILS) 75 % (16-70); TOXIC GRANULATION 2+ (NORMAL); TOXIC VACUOLATION PRESENT (NONE SEEN); WBC DIFF SAMPLE 100
[2016-08-02 06:58] LABS: PLATELET ESTIMATE SMEAR LOW (NORMAL); PLATELET MORPHOLOGY ENLARGED (NORMAL); SCAN/DIFF FINAL DIFF MANUAL
[2016-08-02] MEDS: RESP: ALBUTEROL 2.5 MG/IPRATROPIUM 0.5 MG NEB (SCH) NEB ×5 (08:31→21:45)
[2016-08-02] MEDS: DOCUSATE SODIUM 50 MG/SENNA 8.6 MG TAB PO SCH ×2 (09:09→21:00)
[2016-08-02] MEDS: MAGNESIUM OXIDE 400 MG TAB PO SCH (09:09)
[2016-08-02] MEDS: THIAMINE HCL 100 MG TAB PO SCH (09:09)
[2016-08-02] MEDS: SODIUM CHLORIDE 0.9% FLUSH 5 ML FLUSH FLUSH SCH ×2 (09:10→22:52)
[2016-08-02] MEDS: SODIUM CHLORIDE 0.9% FLUSH 5 ML FLUSH FLUSH PRN (09:10)
[2016-08-02] MEDS: AZITHROMYCIN INJ 500 MG in SODIUM CHLOR 0.9% 250 ML INJ 250 ML IV SCH (09:10)
--- NOTE | 2016-08-02 09:12 | HHI.PR ---
Subjective Remarks Follow-up pneumonia and alcohol withdrawal. He is awake and following simple commands. States he is not well. Discussed with RN Objective Vitals Vital Signs Date Time Temp Pulse Resp B/P Pulse Ox O2 Delivery O2 Flow Rate FiO2 08/02/16 08:32 98 Nasal Cannula 2.00 08/02/16 06:00 115 08/02/16 04:00 109 08/02/16 04:00 Nasal Cannula 4.00 21 08/02/16 04:00 97.4 109 25 143/77 100 08/02/16 02:00 112 08/02/16 00:00 103 08/02/16 00:00 Nasal Cannula 4.00 21 08/02/16 00:00 98.2 103 25 129/79 99 08/01/16 22:00 107 08/01/16 20:57 97 Nasal Cannula 4.00 08/01/16 20:00 121 08/01/16 20:00 Nasal Cannula 4.00 21 08/01/16 20:00 100.5 121 25 128/71 93 08/01/16 18:00 121 08/01/16 16:00 124 08/01/16 16:00 98.2 124 19 111/56 98 08/01/16 16:00 98 Nasal Cannula 4.00 08/01/16 14:00 112 08/01/16 12:00 107 08/01/16 12:00 98.4 112 20 110/61 92 08/01/16 12:00 92 Nasal Cannula 4.00 08/01/16 10:00 103 I/O 08/01/16 08/01/16 08/01/16 08/02/16 08/02/16 08/02/16 07:00 15:00 23:00 07:00 15:00 23:00 Intake Total 494 ml 1485 ml 1340 ml 1170 ml Output Total 450 ml 425 ml 550 ml 650 ml Balance 44 ml 1060 ml 790 ml 520 ml IV Total 460 ml 1227 ml 950 ml 680 ml Tube Feeding 34 ml 258 ml 350 ml 450 ml Tube Irrigant 40 ml 40 ml Output Urine Total 450 ml 425 ml 550 ml 650 ml Stool Total 0 ml 0 ml # Bowel Movements 0 0 Result Diagram: 08/02/1630608/02/16306 Imaging Last Impressions Head CT 08/01/16 0000 Signed Impressions: Service Date/Time: Monday, August 01, 2016 14:08 - CONCLUSION: 1. No acute intracranial abnormality. 2. Subcutaneous emphysema in the upper neck Adam Young MD Chest X-Ray 07/29/16 0000 Signed Impressions: Service Date/Time: Friday, July 29, 2016 14:58 - CONCLUSION: 1. Development of dense consolidation in the right lung predominantly inferiorly most characteristic of pneumonia or aspiration. Comparison with July 26. Augustine Rios MD Liver Ultrasound 07/27/16 0000 Signed Impressions: Service Date/Time: Wednesday, July 27, 2016 12:07 - CONCLUSION: 1. Enlarged , echogenic liver suggesting some fatty infiltration. 2. Limited visualization of the pancreas with nonvisualization of the spleen. 3. Otherwise negative. Ki Carlos MD Objective Remarks GENERAL: Middle-aged white male who is in no distress Skin: No lesions dry and warm HEENT: PERRLA, EOMI. No scleral icterus or conjunctival pallor. No lid lag or facial droop. CARDIOVASCULAR: Tachycardic No obvious murmurs to auscultation. RESPIRATORY: Improved wheezing. Breath sounds equal bilaterally. GASTROINTESTINAL: Abdomen soft, non-tender, nondistended. BS normal. MUSCULOSKELETAL: Extremities without clubbing, cyanosis, or edema. No obvious deformities. NEUROLOGICAL: Awake and following simple commands. Right preferential gaze is not present. Moving both upper and lower extremities with generalized weakness. Procedures none A/P Problem List: (1) Alcohol withdrawal ICD Code: F10.239 Status: Acute (2) Thrombocytopenia ICD Code: D69.6 Status: Acute (3) Hypomagnesemia ICD Code: E83.42 Status: Acute (4) Hypokalemia ICD Code: E87.6 Status: Acute (5) PNA (pneumonia) ICD Code: J18.9 Status: Acute (6) Tobacco abuse ICD Code: Z72.0 Status: Acute Assessment and Plan 1. Alcohol Withdrawal: +Alcohol Abuse w/ Acute Withdrawal, last drink approx 12pm 07/26/16. Alcohol 30. S/p Ativan and Thiamine in ER. Seizure Precautions, CIWA Protocol, Thiamine/MVT/Folate replacement. IVF for hydration. Improved tremors discontinue Precedex. Patient with a right preferential gaze which has resolved. Negative head CT. Neurochecks 2. Hypokalemia and hypophosphatemia secondary to alcohol abuse. Replace per protocol. Repeat BMP and phosphorus in the morning 3. Hypomagnesemia: Mg 1.1, s/p replacement. Improved. Recheck in am and replace as needed. 4. Severe sepsis PNA: CXR w/ RLL and RML infiltrate, images reviewed by me. S /p Solu-Medrol and DuoNeb in ER for wheezing, now resolved. DuoNeb prn. Check sputum, negative urinary Legionella and pneumococcal antigen. Improving fevers , continue IV aztreonam, Zithromax and IV Flagyl to cover for aspiration pneumonia blood cultures with GPR in one out of 8 likely contamination. Improving expiratory wheezes continue IV steroids 5. Thrombocytopenia: Presumably chronic secondary to alcohol abuse and splenic sequestration. No active bleeding at this time. Monitor closely. Repeat labs in am. Spleen not visualized on sonogram, liver with fatty infiltration. Fibrinogen level within normal limits. Head CT without acute findings. Improving 6. Tobacco Abuse: Counselled. Ativan prn. 7. FEN. IV fluids plus by mouth. Continue tube feeding with Jevity 1.5 until oral intake improves. Aspiration precautions with swallowing evaluation pending 8. Hypertension and tachycardia secondary to #1. Start clonidine and monitor. DVT Prophylaxis: Pharmacologic contraindication in light of thrombocytopenia. Discharge Planning Transfer out of ICU in the morning Problem Qualifiers (1) Alcohol withdrawal: Qualified Code: F10.230 - Alcohol withdrawal, uncomplicated (2) PNA (pneumonia): Qualified Code: J18.1 - Pneumonia of right middle lobe due to infectious organism Mirza Stock MD Aug 02, 2016 09:12
[2016-08-02] MEDS: cloNIDine HCL 0.1 MG TAB PO SCH ×2 (10:32→22:52)
[2016-08-03] VITALS (14 sets, daily range): BP systolic 118–154; BP diastolic 69–90; PULSE 108–129; RESP 14–22; TEMP 97.5–99.4; O2SAT 92–96
[2016-08-03] MEDS: LORazepam 2 MG/ML VIAL IV PUSH PRN ×5 (00:22→22:50)
[2016-08-03] MEDS: POTASSIUM CHLOR 20 MEQ PREMIX 100 ML IV PRN (01:41)
[2016-08-03] MEDS: MAGNESIUM OXIDE 400 MG TAB PO SCH ×3 (01:52→21:06)
[2016-08-03] MEDS: AZTREONAM INJ 2,000 MG in SODIUM CHLORIDE 0.9% INJ 100 ML IV SCH ×3 (01:52→17:14)
[2016-08-03] MEDS: POTASSIUM PHOSPHATE INJ 30 MMOL in SODIUM CHLOR 0.9% 250 ML INJ 250 ML IV PRN (02:57)
[2016-08-03] MEDS: metroNIDAZOLE 500 MG INJ 100 ML IV SCH ×3 (05:31→21:07)
[2016-08-03] MEDS: methylPREDNISolone SOD SUCC 40 MG/1 ML VIAL IV PUSH SCH ×3 (05:32→21:07)
[2016-08-03 07:47] LABS: MAGNESIUM 2.1 MG/DL (1.5-2.5); POTASSIUM 3.6 MEQ/L (3.5-5.1)
[2016-08-03] MEDS: RESP: ALBUTEROL 2.5 MG/IPRATROPIUM 0.5 MG NEB (SCH) NEB ×4 (08:33→20:55)
[2016-08-03] MEDS: DOCUSATE SODIUM 50 MG/SENNA 8.6 MG TAB PO SCH ×2 (09:00→21:00)
[2016-08-03] MEDS: THIAMINE HCL 100 MG TAB PO SCH (09:14)
[2016-08-03] MEDS: cloNIDine HCL 0.1 MG TAB PO SCH ×2 (09:14→21:06)
[2016-08-03] MEDS: SODIUM CHLORIDE 0.9% FLUSH 5 ML FLUSH FLUSH SCH ×2 (09:15→21:08)
[2016-08-03] MEDS: AZITHROMYCIN INJ 500 MG in SODIUM CHLOR 0.9% 250 ML INJ 250 ML IV SCH (09:15)
--- NOTE | 2016-08-03 12:02 | HHI.PR ---
Subjective Remarks Follow-up pneumonia and alcohol withdrawal. He is more awake and less tachycardic today discussed with RN Objective Vitals Vital Signs Date Time Temp Pulse Resp B/P Pulse Ox O2 Delivery O2 Flow Rate FiO2 08/03/16 10:00 120 08/03/16 08:40 96 Nasal Cannula 4.00 08/03/16 08:00 97.5 108 14 130/89 94 08/03/16 08:00 113 08/03/16 08:00 94 Nasal Cannula 4.00 08/03/16 06:00 122 08/03/16 06:00 98.5 118 14 141/90 94 08/03/16 05:56 93 Nasal Cannula 4.00 08/03/16 04:00 123 08/03/16 02:00 116 08/03/16 00:00 129 08/03/16 00:00 92 Nasal Cannula 4.00 08/02/16 22:00 133 08/02/16 21:47 97 Nasal Cannula 4.00 08/02/16 20:00 118 08/02/16 20:00 98.3 122 15 151/83 93 08/02/16 20:00 93 Nasal Cannula 4.00 08/02/16 18:00 127 08/02/16 16:00 93 Nasal Cannula 2.00 08/02/16 16:00 98.3 114 18 152/91 93 08/02/16 16:00 114 08/02/16 14:00 121 I/O 08/02/16 08/02/16 08/02/16 08/03/16 08/03/16 08/03/16 07:00 15:00 23:00 07:00 15:00 23:00 Intake Total 1170 ml 1382 ml 884 ml 1006 ml Output Total 650 ml 900 ml 1000 ml 650 ml Balance 520 ml 482 ml -116 ml 356 ml IV Total 680 ml 609 ml 255 ml 449 ml Tube Feeding 450 ml 373 ml 569 ml 437 ml Tube Irrigant 40 ml 60 ml 120 ml Other 400 ml Output Urine Total 650 ml 900 ml 1000 ml 650 ml Stool Total 0 ml Tube Feeding Residual Discard 0 ml # Bowel Movements 3 0 2 Result Diagram: 08/02/16 0307 08/03/16 0645 Imaging Last Impressions Head CT 08/01/16 0000 Signed Impressions: Service Date/Time: Monday, August 01, 2016 14:08 - CONCLUSION: 1. No acute intracranial abnormality. 2. Subcutaneous emphysema in the upper neck Adam Young MD Chest X-Ray 07/29/16 0000 Signed Impressions: Service Date/Time: Friday, July 29, 2016 14:58 - CONCLUSION: 1. Development of dense consolidation in the right lung predominantly inferiorly most characteristic of pneumonia or aspiration. Comparison with July 26. Augustine Rios MD Liver Ultrasound 07/27/16 0000 Signed Impressions: Service Date/Time: Wednesday, July 27, 2016 12:07 - CONCLUSION: 1. Enlarged , echogenic liver suggesting some fatty infiltration. 2. Limited visualization of the pancreas with nonvisualization of the spleen. 3. Otherwise negative. Ki Carlos MD Objective Remarks GENERAL: Middle-aged white male who is in no distress on nasal cannula Skin: No lesions dry and warm HEENT: PERRLA, EOMI. No scleral icterus or conjunctival pallor. No lid lag or facial droop. CARDIOVASCULAR: Tachycardic No obvious murmurs to auscultation. RESPIRATORY: Improved wheezing. Breath sounds equal bilaterally. GASTROINTESTINAL: Abdomen soft, non-tender, nondistended. BS normal. MUSCULOSKELETAL: Extremities without clubbing, cyanosis, or edema. No obvious deformities. NEUROLOGICAL: Awake and following simple commands. Right preferential gaze is not present. Moving both upper and lower extremities with generalized weakness. Nonfocal Procedures none A/P Problem List: (1) Alcohol withdrawal ICD Code: F10.239 Status: Acute (2) Thrombocytopenia ICD Code: D69.6 Status: Acute (3) Hypomagnesemia ICD Code: E83.42 Status: Acute (4) Hypokalemia ICD Code: E87.6 Status: Acute (5) PNA (pneumonia) ICD Code: J18.9 Status: Acute (6) Tobacco abuse ICD Code: Z72.0 Status: Acute Assessment and Plan 1. Alcohol Withdrawal: +Alcohol Abuse w/ Acute Withdrawal, last drink approx 12pm 07/26/16. Alcohol 30. S/p Ativan and Thiamine in ER. Seizure Precautions, CIWA Protocol, Thiamine/MVT/Folate replacement. IVF for hydration. Improved tremors discontinue Precedex. Patient with a right preferential gaze which has resolved. Negative head CT. Neurochecks 2. Hypokalemia and hypophosphatemia secondary to alcohol abuse. Replace per protocol. Repeat BMP and phosphorus in the morning 3. Hypomagnesemia: Mg 1.1, s/p replacement. Improved. Recheck in am and replace as needed. 4. Severe sepsis PNA: CXR w/ RLL and RML infiltrate, images reviewed by me. S /p Solu-Medrol and DuoNeb in ER for wheezing, now resolved. DuoNeb prn. Check sputum, negative urinary Legionella and pneumococcal antigen. Improving fevers , continue IV aztreonam, Zithromax and IV Flagyl to cover for aspiration pneumonia blood cultures with GPR in one out of 8 likely contamination. Improving expiratory wheezes taper IV steroids then switch to by mouth 5. Thrombocytopenia: Presumably chronic secondary to alcohol abuse and splenic sequestration. No active bleeding at this time. Monitor closely. Repeat labs in am. Spleen not visualized on sonogram, liver with fatty infiltration. Fibrinogen level within normal limits. Head CT without acute findings. Improving 6. Tobacco Abuse: Counselled. Ativan prn. 7. FEN. IV fluids plus by mouth. Continue tube feeding with Jevity 1.5 until oral intake improves. Aspiration precautions with speech therapy following 8. Hypertension and tachycardia secondary to #1. Improving continue clonidine and monitor. Deconditioning. Physical therapy evaluation. DVT Prophylaxis: Pharmacologic contraindication in light of thrombocytopenia. Discharge Planning He is improving and medically stable to be transferred out of ICU to telemetry Problem Qualifiers (1) Alcohol withdrawal: Qualified Code: F10.230 - Alcohol withdrawal, uncomplicated (2) PNA (pneumonia): Qualified Code: J18.1 - Pneumonia of right middle lobe due to infectious organism Mirza Stock MD Aug 03, 2016 12:02
[2016-08-04] VITALS (9 sets, daily range): BP systolic 130–166; BP diastolic 74–88; PULSE 108–123; RESP 18–22; TEMP 97.1–99; O2SAT 90–93
[2016-08-04] MEDS: LORazepam 2 MG/ML VIAL IV PUSH PRN (01:46)
[2016-08-04] MEDS: AZTREONAM INJ 2,000 MG in SODIUM CHLORIDE 0.9% INJ 100 ML IV SCH ×2 (02:50→12:24)
[2016-08-04] MEDS: LORazepam 1 MG TAB PO PRN (04:35)
[2016-08-04] MEDS: metroNIDAZOLE 500 MG INJ 100 ML IV SCH ×2 (04:36→13:58)
[2016-08-04] MEDS ORDERED: LACTULOSE SYRUP 20 GM/30 ML CUP NG PRN (08:15)
[2016-08-04] MEDS ORDERED: DOCUSATE SODIUM 100 MG CAP NG PRN (08:15)
[2016-08-04] MEDS: RESP: ALBUTEROL 2.5 MG/IPRATROPIUM 0.5 MG NEB (SCH) NEB ×4 (08:21→19:50)
[2016-08-04] MEDS ORDERED: LORazepam 2 MG TAB NG PRN (08:30)
[2016-08-04] MEDS ORDERED: ACETAMINOPHEN 325 MG TAB NG PRN (08:30)
[2016-08-04] MEDS: DOCUSATE SODIUM 50 MG/SENNA 8.6 MG TAB NG SCH ×2 (09:00→21:00)
[2016-08-04] MEDS ORDERED: cloNIDine HCL 0.1 MG TAB PO/NG SCH (09:00)
[2016-08-04] MEDS: LACTOBACILLUS ACIDOPHILUS TAB NG SCH ×3 (09:00→16:44)
[2016-08-04] MEDS: methylPREDNISolone SOD SUCC 40 MG/1 ML VIAL IV PUSH SCH (10:01)
--- NOTE | 2016-08-04 10:01 | HHI.PR ---
Subjective Remarks Follow-up alcohol withdrawal. He is confused today. Discussed with RN Objective Vitals Vital Signs Date Time Temp Pulse Resp B/P Pulse Ox O2 Delivery O2 Flow Rate FiO2 08/04/16 08:25 93 Nasal Cannula 4.00 08/04/16 08:00 97.1 108 20 130/80 93 08/04/16 07:40 123 08/04/16 04:00 99.0 120 18 138/74 92 08/04/16 01:08 92 Nasal Cannula 4.00 08/04/16 00:26 99.0 120 18 136/76 90 08/03/16 22:00 125 17 132/81 92 08/03/16 20:59 95 Nasal Cannula 4.00 08/03/16 20:00 115 08/03/16 20:00 93 Nasal Cannula 4.00 08/03/16 20:00 99.4 115 22 154/90 93 08/03/16 18:00 117 08/03/16 16:00 98.5 119 21 143/88 94 08/03/16 16:00 119 08/03/16 16:00 94 Nasal Cannula 4.00 08/03/16 14:00 113 08/03/16 12:00 93 Nasal Cannula 4.00 08/03/16 12:00 121 08/03/16 12:00 97.5 121 19 118/69 93 I/O 08/03/16 08/03/16 08/03/16 08/04/16 08/04/16 08/04/16 06:59 14:59 22:59 06:59 14:59 22:59 Intake Total 1006 ml 1514 ml 753 ml Output Total 650 ml 500 ml 1100 ml 600 ml Balance 356 ml 1014 ml -347 ml -600 ml IV Total 449 ml 586 ml 251 ml Tube Feeding 437 ml 928 ml 502 ml Tube Irrigant 120 ml Output Urine Total 650 ml 500 ml 1100 ml 600 ml # Bowel Movements 2 5 1 Result Diagram: 08/02/16 0307 08/03/16 0645 Objective Remarks GENERAL: Middle-aged white male who is in no distress on nasal cannula Skin: No lesions dry and warm HEENT: PERRLA, EOMI. No scleral icterus or conjunctival pallor. No lid lag or facial droop. CARDIOVASCULAR: Tachycardic No obvious murmurs to auscultation. RESPIRATORY no wheezing. Breath sounds equal bilaterally. GASTROINTESTINAL: Abdomen soft, non-tender, nondistended. BS normal. MUSCULOSKELETAL: Extremities without clubbing, cyanosis, or edema. No obvious deformities. NEUROLOGICAL: Confused. Right preferential gaze is not present. Moving both upper and lower extremities with generalized weakness. Nonfocal Procedures none A/P Problem List: (1) Alcohol withdrawal ICD Code: F10.239 Status: Acute (2) Thrombocytopenia ICD Code: D69.6 Status: Acute (3) Hypomagnesemia ICD Code: E83.42 Status: Acute (4) Hypokalemia ICD Code: E87.6 Status: Acute (5) PNA (pneumonia) ICD Code: J18.9 Status: Acute (6) Tobacco abuse ICD Code: Z72.0 Status: Acute Assessment and Plan 1. Alcohol Withdrawal: +Alcohol Abuse w/ Acute Withdrawal, last drink approx 12pm 07/26/16. Alcohol 30. S/p Ativan and Thiamine in ER. Seizure Precautions, CIWA Protocol, Thiamine/MVT/Folate replacement. IVF for hydration. Improved tremors discontinue Precedex. Patient with a right preferential gaze which has resolved. Negative head CT. Neurochecks. He is encephalopathic obtain MRI of the brain and EEG. Neurochecks. Haldol as needed. Consider neurology consult 2. Hypokalemia and hypophosphatemia secondary to alcohol abuse. Replace with IV potassium phosphate. Repeat BMP and phosphorus in the morning 3. Hypomagnesemia: Mg 1.1, s/p replacement. Improved. Recheck in am and replace as needed. 4. Severe sepsis PNA: CXR w/ RLL and RML infiltrate, images reviewed by me. S /p Solu-Medrol and DuoNeb in ER for wheezing, now resolved. DuoNeb prn. Check sputum, negative urinary Legionella and pneumococcal antigen. Improving fevers , discontinue IV aztreonam, Zithromax and IV Flagyl and start by mouth Levaquin and Flagyl. GPR in one out of 8 likely contamination. Improving expiratory wheezes discontinue IV steroids then switch to by mouth 5. Thrombocytopenia: Presumably chronic secondary to alcohol abuse and splenic sequestration. No active bleeding at this time. Monitor closely. Repeat labs in am. Spleen not visualized on sonogram, liver with fatty infiltration. Fibrinogen level within normal limits. Head CT without acute findings. Improving 6. Tobacco Abuse: Counselled. Ativan prn. 7. FEN. IV fluids plus by mouth. Continue tube feeding with Jevity 1.5 until oral intake improves. Aspiration precautions with speech therapy following 8. Hypertension and tachycardia secondary to #1. Improving continue clonidine and monitor. Hyperglycemia likely secondary to steroids. Check A1c and start sliding scale coverage Deconditioning. Physical therapy evaluation. DVT Prophylaxis: Improving thrombocytopenia start Lovenox Discharge Planning Not ready for discharge he will need rehabilitation Problem Qualifiers (1) Alcohol withdrawal: Qualified Code: F10.230 - Alcohol withdrawal, uncomplicated (2) PNA (pneumonia): Qualified Code: J18.1 - Pneumonia of right middle lobe due to infectious organism Mirza Stock MD Aug 04, 2016 10:01
[2016-08-04] MEDS: THIAMINE HCL 100 MG TAB NG SCH (10:02)
[2016-08-04] MEDS: MAGNESIUM OXIDE 400 MG TAB NG SCH ×2 (10:02→21:13)
[2016-08-04] MEDS: AZITHROMYCIN INJ 500 MG in SODIUM CHLOR 0.9% 250 ML INJ 250 ML IV SCH (10:02)
[2016-08-04] MEDS: SODIUM CHLORIDE 0.9% FLUSH 5 ML FLUSH FLUSH SCH ×2 (10:03→21:00)
[2016-08-04] MEDS ORDERED: MAGNESIUM HYDROXIDE SUSP 30 ML CUP NG PRN (11:30)
[2016-08-04 11:48] LABS: AUTOMATED NEUTROPHIL # 10.7 TH/MM3 (1.8-7.7); BASOPHIL % 0.3 % (0.0-2.0); HEMATOCRIT 30.6 % (39.0-51.0); HEMO FLAGS DIFF FINAL; LYMPH % 5.8 % (9.0-44.0); LYMPHOCYTE # 0.7 TH/MM3 (1.0-4.8); MEAN CELL VOLUME 105.1 FL (80.0-100.0); MEAN CORPUSCULAR HEMOGLOBIN 35.9 PG (27.0-34.0); MEAN CORPUSCULAR HGB CONC 34.1 % (32.0-36.0); MONO % 3.8 % (0.0-8.0); NEUT % 90.1 % (16.0-70.0); PLATELET COUNT 104 TH/MM3 (150-450); RED BLOOD COUNT 2.91 MIL/MM3 (4.50-5.90); RED CELL DISTRIBUTION WIDTH 14.9 % (11.6-17.2); WHITE BLOOD COUNT 11.9 TH/MM3 (4.0-11.0)
[2016-08-04] MEDS: INSULIN ASPART SUPPLEMENTAL SCALE SQ SCH ×3 (12:25→21:23)
[2016-08-04 12:40] LABS: BICARBONATE 36.3 MEQ/L (21.0-32.0); MAGNESIUM 2.2 MG/DL (1.5-2.5); POTASSIUM 3.3 MEQ/L (3.5-5.1)
[2016-08-04 12:45] LABS: HEMOGLOBIN Ao 80.6 %; HEMOGLOBIN LA1C 3.3 %; HEMOGLOBIN P3 4.8 %
[2016-08-04] MEDS: ENOXAPARIN SODIUM 40 MG/0.4 ML SYRINGE SQ SCH (15:47)
[2016-08-04] MEDS: POTASSIUM PHOSPHATE MONOBASIC 500 MG TAB PO/NG SCH ×2 (15:48→21:12)
[2016-08-04] MEDS ORDERED: POTASSIUM PHOSPHATE INJ 30 MMOL in SODIUM CHLOR 0.9% 250 ML INJ 250 ML IV ONE (16:00)
[2016-08-04] MEDS: metroNIDAZOLE 500 MG TAB NG SCH ×2 (16:45→23:34)
--- NOTE | 2016-08-04 17:02 | EKG ---
Date Performed: 08/04/2016 Time Performed: 11:22:18 PTAGE: 51 years EKG: SINUS TACHYCARDIA WITH SHORT MS INTERVAL BORDERLINE RIGHT AXIS DEVIATION Compared to prior tracing no significant change ABNORMAL RHYTHM ECG PREVIOUS TRACING : 07/27/2016 22.04 DOCTOR: Tein Wolfe Interpretating Date/Time 08/04/2016 17:01:01
[2016-08-04] MEDS: LORazepam 1 MG TAB NG PRN (21:13)
[2016-08-04] MEDS: cloNIDine HCL 0.1 MG TAB PO/NG SCH (21:13)
[2016-08-04] MEDS: SODIUM CHLORIDE 0.9% FLUSH 5 ML FLUSH FLUSH PRN (23:36)
[2016-08-04] MEDS: HALOPERIDOL LACTATE 5 MG/ML AMP IM PRN (23:40)
[2016-08-04] MEDS: RESP: ALBUTEROL 2.5 MG/IPRATROPIUM 0.5 MG NEB (PRN) NEB (23:56)
[2016-08-05] VITALS (10 sets, daily range): BP systolic 124–146; BP diastolic 78–93; PULSE 104–127; RESP 20–22; TEMP 96.6–99.8; O2SAT 91–94
--- NOTE | 2016-08-05 01:32 | RADRPT ---
EXAM DATE/TIME: 08/05/2016 00:50 [facility] COMPARISON: CHEST SINGLE AP, July 29, 2016, 14:58. INDICATIONS : Shortness of breath. MEDICAL HISTORY : None. SURGICAL HISTORY : None. ENCOUNTER: Subsequent ACUITY: 2 weeks PAIN SCORE: Non-responsive. LOCATION: Bilateral chest FINDINGS: There is patchy alveolar disease bilaterally compatible with edema or pneumonia. This is asymmetric a nd worse on the right than on the left. The findings have worsened when compared with the prior exam[facility]. The cardiac silhouette is normal in transverse diameter. A nasogastric tube is in place with its tip in the stomach. CONCLUSION: 1. Diffuse edema versus pneumonia. The findings have worsened when compared with the [facility] Mason MD on August 05, 2016 at 1:30 Board Certified Radiologist. This report was verified electronically.
[2016-08-05] MEDS: LORazepam 1 MG TAB NG PRN (03:40)
[2016-08-05] MEDS ORDERED: FUROSEMIDE 40 MG/4 ML VIAL IV PUSH ONE (05:45)
[2016-08-05] MEDS ORDERED: POTASSIUM CL 40 MEQ/30 ML LIQ UDC PO/NG ONE (05:45)
[2016-08-05] MEDS: cloNIDine HCL 0.1 MG TAB PO/NG SCH (06:06)
[2016-08-05] MEDS: metroNIDAZOLE 500 MG TAB NG SCH ×2 (06:06→11:42)
[2016-08-05] MEDS: SODIUM CHLORIDE 0.9% FLUSH 5 ML FLUSH FLUSH PRN (06:09)
[2016-08-05] MEDS: INSULIN ASPART SUPPLEMENTAL SCALE SQ SCH ×4 (06:19→21:00)
[2016-08-05 06:30] LABS: BLOOD GAS BASE EXCESS 9.8 mmol/L (-2-2); BLOOD GAS CARBOXYHEMOGLOBIN 1.6 % (0-4); BLOOD GAS HCO3 34 mmol/L (22-26); BLOOD GAS METHEMOGLOBIN 0.7 % (0-2); BLOOD GAS O2 HGB SATURATION 90 % (90-100); BLOOD GAS OXYGEN CONTENT 13.6 Vol % (12.0-20.0); BLOOD GAS PCO2 43 mmHg (38-42); BLOOD GAS PO2 66 mmHg (61-120); BLOOD GAS TOTAL HGB 10.7 G/DL (12.0-16.0); LITER FLOW 5 L/M; OXYGEN DEVICE NASAL CANNULA; TEMP CORR TO 98.6
[2016-08-05 06:31] LABS: DRAW SITE LT RADIAL; NUMBER OF ARTERIAL PUNCTURES 1; STAT YES; ULNAR PULSE PRESENT
[2016-08-05 07:42] LABS: BICARBONATE 36.1 MEQ/L (21.0-32.0); MAGNESIUM 2.1 MG/DL (1.5-2.5); POTASSIUM 3.6 MEQ/L (3.5-5.1)
[2016-08-05] MEDS: RESP: ALBUTEROL 2.5 MG/IPRATROPIUM 0.5 MG NEB (SCH) NEB ×5 (08:24→23:42)
[2016-08-05 08:57] LABS: AUTOMATED NEUTROPHIL # 12.1 TH/MM3 (1.8-7.7); BASOPHIL % 0.1 % (0.0-2.0); EOSINOPHIL % 0.1 % (0.0-4.0); HEMATOCRIT 31.1 % (39.0-51.0); HEMO FLAGS DIFF FINAL; LYMPHOCYTE # 0.8 TH/MM3 (1.0-4.8); MEAN CELL VOLUME 105.6 FL (80.0-100.0); MEAN CORPUSCULAR HEMOGLOBIN 36.2 PG (27.0-34.0); MEAN CORPUSCULAR HGB CONC 34.2 % (32.0-36.0); NEUT % 89.8 % (16.0-70.0); PLATELET COUNT 102 TH/MM3 (150-450); RED BLOOD COUNT 2.95 MIL/MM3 (4.50-5.90); RED CELL DISTRIBUTION WIDTH 15.2 % (11.6-17.2); WHITE BLOOD COUNT 13.4 TH/MM3 (4.0-11.0)
[2016-08-05] MEDS: DOCUSATE SODIUM 50 MG/SENNA 8.6 MG TAB NG SCH (09:00)
[2016-08-05] MEDS ORDERED: LEVOFLOXACIN 750 MG TAB NG SCH (09:00)
[2016-08-05] MEDS: MAGNESIUM OXIDE 400 MG TAB NG SCH (09:00)
[2016-08-05] MEDS ORDERED: predniSONE 20 MG TAB PO SCH (09:00)
[2016-08-05] MEDS: THIAMINE HCL 100 MG TAB NG SCH (09:00)
[2016-08-05] MEDS: LACTOBACILLUS ACIDOPHILUS TAB NG SCH (09:07)
[2016-08-05] MEDS: POTASSIUM PHOSPHATE MONOBASIC 500 MG TAB PO/NG SCH (09:07)
[2016-08-05] MEDS: SODIUM CHLORIDE 0.9% FLUSH 5 ML FLUSH FLUSH SCH ×2 (09:08→20:39)
[2016-08-05] MEDS: HALOPERIDOL LACTATE 5 MG/ML AMP IM PRN (10:10)
--- NOTE | 2016-08-05 10:50 | HHI.PR ---
Subjective Remarks Follow-up pneumonia and encephalopathy. Events noted patient developed respiratory distress overnight repeat chest x-ray shows worsening pneumonia or edema. Discussed with RN patient may have aspirated. Today, he is awake and oriented to person only he remains confused. He has been placed on restraints. He received Lasix 0600 hrs. patient with tachypnea and abdominal breathing on 5 L nasal cannula. Discussed with pulmonary Objective Vitals Vital Signs Date Time Temp Pulse Resp B/P Pulse Ox O2 Delivery O2 Flow Rate FiO2 08/05/16 10:45 104 08/05/16 10:17 94 Nasal Cannula 5.00 08/05/16 08:16 99.3 116 20 127/83 94 08/05/16 04:00 98.5 105 22 146/93 08/05/16 01:00 94 5.00 08/05/16 00:01 91 Nasal Cannula 5.00 08/05/16 00:00 91 Nasal Cannula 5.00 08/05/16 00:00 99.8 112 20 134/86 92 08/04/16 20:00 98.5 116 20 166/88 92 08/04/16 16:11 93 Nasal Cannula 4.00 08/04/16 12:00 98.2 121 22 139/82 90 I/O 08/04/16 08/04/16 08/04/16 08/05/16 08/05/16 08/05/16 07:00 15:00 23:00 07:00 15:00 23:00 Output Total 600 ml 1100 ml 600 ml Balance -600 ml -1100 ml -600 ml Output Urine Total 600 ml 1100 ml 600 ml # Voids 0 2 # Bowel Movements 2 0 1 Result Diagram: 08/05/16 0835 08/05/16 0704 Imaging Last Impressions Chest X-Ray 08/05/16 0000 Signed Impressions: Service Date/Time: Friday, August 05, 2016 00:50 - CONCLUSION: 1. Diffuse edema versus pneumonia. The findings have worsened when compared with the prior examination. Mike Mason MD Head CT 08/01/16 0000 Signed Impressions: Service Date/Time: Monday, August 01, 2016 14:08 - CONCLUSION: 1. No acute intracranial abnormality. 2. Subcutaneous emphysema in the upper neck Adam Young MD Liver Ultrasound 07/27/16 0000 Signed Impressions: Service Date/Time: Wednesday, July 27, 2016 12:07 - CONCLUSION: 1. Enlarged , echogenic liver suggesting some fatty infiltration. 2. Limited visualization of the pancreas with nonvisualization of the spleen. 3. Otherwise negative. Ki Carlos MD Objective Remarks GENERAL: Middle-aged white male who is distress on 5 L nasal cannula Skin: No lesions dry and warm HEENT: PERRLA, EOMI. No scleral icterus or conjunctival pallor. No lid lag or facial droop. CARDIOVASCULAR: Tachycardic No obvious murmurs to auscultation. RESPIRATORY rhonchi and wheezes noted GASTROINTESTINAL: Abdomen soft, non-tender, nondistended. BS normal. MUSCULOSKELETAL: Extremities without clubbing, cyanosis, or edema. No obvious deformities. NEUROLOGICAL: Awake and Confused. Moving both upper and lower extremities with generalized weakness. Nonfocal Procedures none A/P Problem List: (1) Alcohol withdrawal ICD Code: F10.239 Status: Acute (2) Thrombocytopenia ICD Code: D69.6 Status: Acute (3) Hypomagnesemia ICD Code: E83.42 Status: Acute (4) Hypokalemia ICD Code: E87.6 Status: Acute (5) PNA (pneumonia) ICD Code: J18.9 Status: Acute (6) Tobacco abuse ICD Code: Z72.0 Status: Acute Assessment and Plan 1. Alcohol Withdrawal: +Alcohol Abuse w/ Acute Withdrawal, last drink approx 12pm 07/26/16. Alcohol 30. S/p Ativan and Thiamine in ER. Seizure Precautions, CIWA Protocol, Thiamine/MVT/Folate replacement. IVF for hydration. Improved tremors discontinue Precedex. Patient with a right preferential gaze which has resolved. Negative head CT. Neurochecks. He is encephalopathic pending MRI of the brain and EEG. Check ammonia level. Neurochecks. Start Haldol scheduled and as needed. Consider neurology consult 2. Hypokalemia and hypophosphatemia secondary to alcohol abuse. Replace with IV potassium phosphate. Repeat BMP and phosphorus in the morning 3. Hypomagnesemia: Mg 1.1, s/p replacement. Improved. Recheck in am and replace as needed. 4. Severe sepsis PNA: CXR w/ RLL and RML infiltrate, images reviewed by me. S /p Solu-Medrol and DuoNeb in ER for wheezing. Check sputum, negative urinary Legionella and pneumococcal antigen. Discontinued IV aztreonam, Zithromax and IV Flagyl and started by mouth Levaquin and Flagyl secondary to improving fevers but today has worsening leukocytosis and respiratory status.. Repeat chest x-ray image interpreted by me with worsening pneumonia versus edema. Obtain ABG and BMP as well as echocardiogram. Add IV vancomycin and IV Bumex. Increase scheduled nebulization therapy every 4 hours. GPR in one out of 8 likely contamination. Consult pulmonary. Discussed with RN, monitor respiratory Status closely may need transfer back to ICU 5. Thrombocytopenia: Presumably chronic secondary to alcohol abuse and splenic sequestration. No active bleeding at this time. Monitor closely. Repeat labs in am. Spleen not visualized on sonogram, liver with fatty infiltration. Fibrinogen level within normal limits. Head CT without acute findings. Improving 6. Tobacco Abuse: Counselled. Ativan prn. 7. FEN. IV fluids plus by mouth. Continue tube feeding with Jevity 1.5 until oral intake improves. Aspiration precautions with speech therapy following. We consulted dietitian for bolus tube feeding 8. Hypertension and tachycardia secondary to #1. Worsening tachycardia secondary to infection and agitation. Continue clonidine and telemetry Hyperglycemia likely secondary to steroids. A1c 6.1. Continue sliding scale coverage Deconditioning. Physical therapy DVT Prophylaxis: Improving thrombocytopenia continue Lovenox Consult case management to obtain contact information of family Discharge Planning Patient clinically worse may need transfer back to ICU Problem Qualifiers (1) Alcohol withdrawal: Qualified Code: F10.230 - Alcohol withdrawal, uncomplicated (2) PNA (pneumonia): Qualified Code: J18.1 - Pneumonia of right middle lobe due to infectious organism Mirza Stock MD Aug 05, 2016 10:50
[2016-08-05] MEDS ORDERED: VANCOMYCIN INJ 1,000 MG in SODIUM CHLOR 0.9% 250 ML INJ 250 ML IV ONE (11:00)
[2016-08-05] MEDS ORDERED: BUMETANIDE INJ 1 MG/4 ML VIAL IV PUSH ONE (11:00)
[2016-08-05] MEDS ORDERED: D5-1/2 NS + KCL 10 MEQ INJ 1,000 ML IV SCH (17:00)
[2016-08-05 17:23] LABS: BLOOD GAS BASE EXCESS 9.4 mmol/L (-2-2); BLOOD GAS CARBOXYHEMOGLOBIN 1.9 % (0-4); BLOOD GAS HCO3 32 mmol/L (22-26); BLOOD GAS METHEMOGLOBIN 0.7 % (0-2); BLOOD GAS O2 HGB SATURATION 87 % (90-100); BLOOD GAS OXYGEN CONTENT 14.5 Vol % (12.0-20.0); BLOOD GAS PCO2 33 mmHg (38-42); BLOOD GAS PO2 55 mmHg (61-120); BLOOD GAS TOTAL HGB 11.9 G/DL (12.0-16.0); TEMP CORR TO 98.6
[2016-08-05 17:24] LABS: CRITICAL VALUE YES; DRAW SITE RT RADIAL; FIO2 21 %; NUMBER OF ARTERIAL PUNCTURES 2; OXYGEN DEVICE ROOM AIR; STAT NO; ULNAR PULSE PRESENT
--- NOTE | 2016-08-05 17:31 | MB ---
cc: VALERI MASTERS DATE OF CONSULTATION 08/05/2016 REASON FOR CONSULTATION Right lung infiltrate. HISTORY OF THE PRESENT ILLNESS This is a 51-year-old white male who was initially brought to the emergency room on 07/26/2016 with a history of heavy ethanolism and withdrawal symptoms. The patient also was noted to be thrombocytopenic upon admission, but the white count and hemoglobin were normal. He has been followed by Dr. Tien Wellington the oncologist and further testing is in progress. During the course of his stay, the patient received antibiotic therapy for pneumonia which was presumed to be aspiration pneumonia and the patient has been having withdrawal symptoms. He is quite shaky, tremulous and he is in restraints. The follow-up chest x-ray done this week again showed right mid and right lower lobe infiltrates. The patient also was suspected to be in pulmonary edema and has received Lasix as well as Bumex with good diuresis. He however feels weak and apparently is not taking much orally. He is not running any fevers at this time but has depression. PAST MEDICAL HISTORY Past history has included: 1. Seizures. 2. History of COPD with chronic smoking. 3. History of depression and anxiety. PAST SURGICAL HISTORY No surgical history. ALLERGIES TO PENICILLIN. FAMILY HISTORY Noncontributory. SOCIAL HISTORY Habits, the patient drank heavily over the past 20 years and also smoked one to two packs per day as well as my marijuana use over the past 25 years. REVIEW OF SYSTEMS The patient is unable to provide any meaningful details. Denies any shortness of breath at this time and is on room air with a saturation of around 92%. He has a cough, however, and some wheezing and denies any leg or calf muscle pains. He has joint pains. No skin rash. PHYSICAL EXAMINATION GENERAL: This thinly built middle-aged white male who is anxious and mildly dyspneic. He is in restraints. VITAL SIGNS: His blood pressure is 140/80, pulse is 105. Respiratory rate 22. Temperature is 98.2. HEENT: Head normocephalic. Pupils are reactive. Sclerae are injected. Tongue is dry. Throat is injected. NECK: Supple. No bruits or thyroid enlargement or lymphadenopathy. CHEST: Equal movements with expiratory wheeze in the upper chest. No crackles on either side. CARDIOVASCULAR: Heart sounds are regular S1-S2. No murmur. No S3. ABDOMEN: The abdomen is soft, scaphoid without masses. No organomegaly or tenderness. Bowel sounds are active. EXTREMITIES: No edema. There is muscle wasting of the extremities. No gross motor deficits. NEUROLOGICAL: Cranial nerves grossly intact. RECTAL: Exam is deferred. SKIN: Dry and warm. The patient also was quite agitated. IMPRESSION 1. Aspiration pneumonia. 2. COPD with emphysema. 3. Alcohol withdrawal with delirium tremens. 4. Thrombocytopenia. 5. Hypokalemia. PLAN The patient will be maintained on 2 liters of oxygen nasal cannula. We will continue with antibiotic coverage including Flagyl 500 milligrams IV daily and Levaquin was switched to 500 milligrams IV daily. Sputum will be sent for Gram stain and culture. The patient will have a CT of the chest ordered without contrast. Nebulized DuoNeb solution added q.i.d. and Solu-Medrol given 40 mg b.i.d. We will hold off on diuretic therapy at this time. I will follow the case with you Dr. Stock. Thank you for this consultation. Valeri Masters MD JNOE/JASIEL /4:07 PM /5:20 PM
[2016-08-05] MEDS ORDERED: LACTULOSE SYRUP 20 GM/30 ML CUP PO PRN (18:15)
[2016-08-05] MEDS ORDERED: MAGNESIUM HYDROXIDE SUSP 30 ML CUP PO PRN (18:15)
[2016-08-05] MEDS ORDERED: DOCUSATE SODIUM 100 MG CAP PO PRN (18:15)
[2016-08-05] MEDS ORDERED: ACETAMINOPHEN 325 MG TAB PO PRN (18:15)
[2016-08-05] MEDS ORDERED: LORazepam 2 MG TAB PO PRN (18:15)
--- NOTE | 2016-08-05 18:53 | MG ---
cc: DARA QUEVEDO M.D. Lab No: [id number] Date: 08/05/2016 Age: Sex: M Race: TECHNIQUE: 17 channel EEG. DESCRIPTION: Background is a normal alpha rhythm. Frequency is 8-9 Hz. Amplitude 20 microvolts. There is fairly prominent muscle and eye movement artifact. No lateralizing features are seen. No epileptiform discharges. During drowsiness there is slowing in the theta range. Photic is normal. INTERPRETATION: This is a normal EEG. MD NANO Tucker/BELA /6:46 PM /6:52 PM
[2016-08-05] MEDS: ENOXAPARIN SODIUM 40 MG/0.4 ML SYRINGE SQ SCH (19:20)
[2016-08-05] MEDS: MAGNESIUM OXIDE 400 MG TAB PO SCH (20:38)
[2016-08-05] MEDS: POTASSIUM PHOSPHATE MONOBASIC 500 MG TAB PO SCH (20:39)
[2016-08-05] MEDS: DOCUSATE SODIUM 50 MG/SENNA 8.6 MG TAB PO SCH (20:39)
[2016-08-05] MEDS: methylPREDNISolone SOD SUCC 40 MG/1 ML VIAL IV PUSH SCH (20:39)
[2016-08-05] MEDS ORDERED: HALOPERIDOL 1 MG TAB PO SCH (21:00)
[2016-08-05] MEDS: cloNIDine HCL 0.1 MG TAB PO SCH (23:53)
[2016-08-05] MEDS: metroNIDAZOLE 500 MG TAB PO SCH (23:53)
[2016-08-06] VITALS (11 sets, daily range): BP systolic 106–138; BP diastolic 68–88; PULSE 88–134; RESP 20–24; TEMP 97.6–98.7; O2SAT 90–97
[2016-08-06] MEDS: HALOPERIDOL LACTATE 5 MG/ML AMP IM PRN ×3 (00:49→11:46)
--- NOTE | 2016-08-06 02:07 | RADRPT ---
EXAM DATE/TIME: 08/06/2016 01:32 [facility] COMPARISON: CHEST SINGLE AP, July 26, 2016, 19:17. CHEST SINGLE AP, July 29, 2016, 14:58. INDICATIONS : Dyspnea. RADIATION DOSE: 3.36 CTDIvol (mGy) MEDICAL HISTORY : Seizures. ETOH abuse SURGICAL HISTORY : None. ENCOUNTER: Initial ACUITY: 1 day PAIN SCALE: 0/10 LOCATION: chest TECHNIQUE: Volumetric scanning of the chest was performed. Using automated exposure control and adjustment of t he mA and/or kV according to patient size, radiation dose was kept as low as reasonably achievable to obtain optimal diagnostic quality images. FINDINGS: LUNGS: There is fairly widespread mixed interstitial and alveolar consolidation. There are multiple areas of focal emphysematous change seen throughout the lungs. PLEURAE: There are mild bilateral pleural effusions being worse on the right. MEDIASTINUM: The heart and great vessels demonstrate no acute abnormality. There is no mediastinal or hilar lymph adenopathy. Coronary artery calcifications are present. AXILLAE: Within normal limits. No lymphadenopathy. MUSCULOSKELETAL: Within normal limits for patient age. MISCELLANEOUS: The visualized upper abdominal organs demonstrate no acute abnormality. CONCLUSION: 1. Fairly diffuse areas of consolidation. The rapid nature of the onset comparing prior chest x-rays suggest progressing inflammatory/infectious process versus edema. 2. Underlying chronic appearing emphysematous change. 3. Bilateral mild pleural effusions being worse on the right. Fermin Stevenson MD on August 06, 2016 at 2:03 Board Certified Radiologist. This report was verified electronically.
[2016-08-06] MEDS: LORazepam 1 MG TAB PO PRN ×2 (02:26→06:58)
[2016-08-06] MEDS: RESP: ALBUTEROL 2.5 MG/IPRATROPIUM 0.5 MG NEB (SCH) NEB ×2 (03:18→07:56)
[2016-08-06] MEDS ORDERED: BUMETANIDE INJ 1 MG/4 ML VIAL IV PUSH ONE (04:00)
[2016-08-06] MEDS ORDERED: Vancomycin Consult Pharmacy 1 EA OTHER SCH (05:00)
[2016-08-06] MEDS ORDERED: VANCOMYCIN 1,000 MG/NS 250 ML IV ONE ×2 (06:00)
[2016-08-06] MEDS: metroNIDAZOLE 500 MG TAB PO SCH ×3 (06:57→17:56)
[2016-08-06] MEDS: cloNIDine HCL 0.1 MG TAB PO SCH ×3 (06:57→22:08)
[2016-08-06] MEDS: INSULIN ASPART SUPPLEMENTAL SCALE SQ SCH ×4 (06:58→21:00)
[2016-08-06 08:02] LABS: BASOPHIL % 0.3 % (0.0-2.0); LYMPH % 4.1 % (9.0-44.0); LYMPHOCYTE # 0.6 TH/MM3 (1.0-4.8); MEAN CELL VOLUME 105.6 FL (80.0-100.0); MEAN CORPUSCULAR HEMOGLOBIN 36.3 PG (27.0-34.0); MEAN CORPUSCULAR HGB CONC 34.4 % (32.0-36.0); MONO % 3.7 % (0.0-8.0); NEUT % 91.9 % (16.0-70.0); PLATELET COUNT 114 TH/MM3 (150-450); RED BLOOD COUNT 3.22 MIL/MM3 (4.50-5.90); RED CELL DISTRIBUTION WIDTH 15.1 % (11.6-17.2); WHITE BLOOD COUNT 14.2 TH/MM3 (4.0-11.0)
[2016-08-06 08:10] LABS: HEMO FLAGS AUTO DIFF
[2016-08-06] MEDS: methylPREDNISolone SOD SUCC 40 MG/1 ML VIAL IV PUSH SCH ×2 (08:10→22:09)
[2016-08-06 08:15] LABS: BICARBONATE 31.5 MEQ/L (21.0-32.0); MAGNESIUM 1.9 MG/DL (1.5-2.5); POTASSIUM 3.1 MEQ/L (3.5-5.1)
[2016-08-06] MEDS: POTASSIUM PHOSPHATE MONOBASIC 500 MG TAB PO SCH ×2 (08:15→22:08)
[2016-08-06] MEDS: LACTOBACILLUS ACIDOPHILUS TAB PO SCH ×3 (08:15→17:56)
[2016-08-06] MEDS: MAGNESIUM OXIDE 400 MG TAB PO SCH ×2 (08:15→22:08)
[2016-08-06] MEDS: DOCUSATE SODIUM 50 MG/SENNA 8.6 MG TAB PO SCH ×2 (09:00→22:08)
[2016-08-06] MEDS: SODIUM CHLORIDE 0.9% FLUSH 5 ML FLUSH FLUSH SCH ×2 (09:00→21:00)
[2016-08-06] MEDS: LEVOFLOXACIN 500 MG PREMIX INJ 100 ML IV SCH (09:00)
[2016-08-06] MEDS: THIAMINE HCL 100 MG TAB PO SCH (09:15)
[2016-08-06 10:04] LABS: RAPID PLASMA REAGIN SCREEN NON-REACTIVE (NON-REACTVE)
[2016-08-06] MEDS ORDERED: RESP: ALBUTEROL 0.63 MG/3 ML NEB (PRN) NEB (10:15)
[2016-08-06] MEDS ORDERED: NS + KCL 20 MEQ INJ 1,000 ML IV PRN (10:15)
--- NOTE | 2016-08-06 10:17 | HHI.PR ---
Subjective Remarks Follow-up pneumonia and encephalopathy. Patient awake but confused. Tolerating by mouth. Currently on 3 L nasal cannula. Discussed with RN Objective Vitals Vital Signs Date Time Temp Pulse Resp B/P Pulse Ox O2 Delivery O2 Flow Rate FiO2 08/06/16 08:23 97.9 88 20 124/68 90 08/06/16 07:59 93 Nasal Cannula 3.00 08/06/16 04:36 97.7 134 22 129/82 93 08/06/16 02:00 93 Nasal Cannula 3.00 Humidified 08/06/16 01:40 117 08/06/16 00:27 98.7 130 24 138/87 93 08/05/16 20:40 97.4 127 22 142/86 92 08/05/16 16:38 96.6 119 20 133/82 94 08/05/16 15:55 94 21 08/05/16 12:12 99.4 121 20 124/78 94 08/05/16 10:45 104 08/05/16 10:17 94 Nasal Cannula 5.00 I/O 08/05/16 08/05/16 08/05/16 08/06/16 08/06/16 08/06/16 06:59 14:59 22:59 06:59 14:59 22:59 Intake Total 480 ml 499 ml Output Total 600 ml 1500 ml Balance -600 ml -1500 ml 480 ml 499 ml Intake Oral 480 ml IV Total 499 ml Output Urine Total 600 ml 1500 ml # Voids 2 1 3 # Bowel Movements 1 1 3 Result Diagram: 08/06/16 0731 08/06/16 0731 Imaging Last Impressions Chest CT 08/05/16 1610 Signed Impressions: Service Date/Time: Saturday, August 06, 2016 01:32 - CONCLUSION: 1. Fairly diffuse areas of consolidation. The rapid nature of the onset comparing prior chest x-rays suggest progressing inflammatory/infectious process versus edema. 2. Underlying chronic appearing emphysematous change. 3. Bilateral mild pleural effusions being worse on the right. Fermin Stevenson MD Chest X-Ray 08/05/16 0000 Signed Impressions: Service Date/Time: Friday, August 05, 2016 00:50 - CONCLUSION: 1. Diffuse edema versus pneumonia. The findings have worsened when compared with the prior examination. Mike Mason MD Head CT 08/01/16 0000 Signed Impressions: Service Date/Time: Monday, August 01, 2016 14:08 - CONCLUSION: 1. No acute intracranial abnormality. 2. Subcutaneous emphysema in the upper neck Adam Young MD Liver Ultrasound 07/27/16 0000 Signed Impressions: Service Date/Time: Wednesday, July 27, 2016 12:07 - CONCLUSION: 1. Enlarged , echogenic liver suggesting some fatty infiltration. 2. Limited visualization of the pancreas with nonvisualization of the spleen. 3. Otherwise negative. Ki Carlos MD Objective Remarks GENERAL: Middle-aged white male who is confused and restless. 3 L nasal cannula Skin: No lesions dry and warm HEENT: PERRLA, EOMI. No scleral icterus or conjunctival pallor. No lid lag or facial droop. CARDIOVASCULAR: Tachycardic No obvious murmurs to auscultation. RESPIRATORY decreased breath sounds GASTROINTESTINAL: Abdomen soft, non-tender, nondistended. BS normal. MUSCULOSKELETAL: Extremities without clubbing, cyanosis, or edema. No obvious deformities. NEUROLOGICAL: Awake and Confused. Moving both upper and lower extremities with generalized weakness. Nonfocal. Restless Procedures none A/P Problem List: (1) Alcohol withdrawal ICD Code: F10.239 Status: Acute (2) Thrombocytopenia ICD Code: D69.6 Status: Acute (3) Hypomagnesemia ICD Code: E83.42 Status: Acute (4) Hypokalemia ICD Code: E87.6 Status: Acute (5) PNA (pneumonia) ICD Code: J18.9 Status: Acute (6) Tobacco abuse ICD Code: Z72.0 Status: Acute Assessment and Plan 1. Alcohol Withdrawal: +Alcohol Abuse w/ Acute Withdrawal, last drink approx 12pm 07/26/16. Alcohol 30. S/p Ativan and Thiamine in ER. Seizure Precautions, CIWA Protocol, Thiamine/MVT/Folate replacement. Improved tremors discontinue Precedex. Patient with a right preferential gaze which has resolved. Negative head CT. Neurochecks. He is encephalopathic pending MRI of the brain and EEG. Ammonia level within normal limits. Neurochecks. Increase scheduled Haldol secondary to restlessness causing persistent tachycardia. Consider neurology consult 2. Hypokalemia and hypophosphatemia secondary to alcohol abuse. Replace with IV potassium phosphate. Repeat BMP and phosphorus in the morning 3. Hypomagnesemia: Mg 1.1, s/p replacement. Improved. Recheck in am and replace as needed. 4. Severe sepsis PNA: CXR w/ RLL and RML infiltrate, images reviewed by me. S /p Solu-Medrol and DuoNeb in ER for wheezing. Check sputum, negative urinary Legionella and pneumococcal antigen. Discontinued IV aztreonam, Zithromax and IV Flagyl and started by mouth Levaquin and Flagyl secondary to improving fevers but 2/2 worsening leukocytosis and respiratory status switch to IV levaquin and added IV vanco. Repeat chest x-ray image interpreted by me with worsening pneumonia versus edema. CT showed consolidations. Discussed with RN, monitor respiratory Status closely may need transfer back to ICU. F/u ECHO 5. Thrombocytopenia: Presumably chronic secondary to alcohol abuse and splenic sequestration. No active bleeding at this time. Monitor closely. Repeat labs in am. Spleen not visualized on sonogram, liver with fatty infiltration. Fibrinogen level within normal limits. Head CT without acute findings. Improving 6. Tobacco Abuse: Counselled. Ativan prn. 7. FEN. IV fluids plus by mouth. Dc tube feeding pt oulkled NGT out. Aspiration precautions with speech therapy following. 8. Hypertension and tachycardia secondary to #1. Worsening tachycardia secondary to infection and agitation. Continue clonidine and telemetry. Increase Haldol and decrease nebs Hyperglycemia likely secondary to steroids. A1c 6.1. Continue sliding scale coverage Deconditioning. Physical therapy DVT Prophylaxis: Improving thrombocytopenia continue Lovenox Consult case management to obtain contact information of family Discharge Planning Patient clinically worse may need transfer back to ICU Problem Qualifiers (1) Alcohol withdrawal: Qualified Code: F10.230 - Alcohol withdrawal, uncomplicated (2) PNA (pneumonia): Qualified Code: J18.1 - Pneumonia of right middle lobe due to infectious organism Mirza Stock MD Aug 06, 2016 10:16 Mirza Stock MD Aug 06, 2016 10:16
[2016-08-06] MEDS ORDERED: POTASSIUM CHLORIDE 10 MEQ CONTROLLED RELEASE TAB PO ONE (10:30)
[2016-08-06 10:51] LABS: BANDS 6 % (0-6); CORRECTED NUCLEATED RBC 2 /100 WBC (0-0); NEUTROPHIL # MANUAL DIFF 12.6 TH/MM3 (1.8-7.7); POLYS (SEG NEUTROPHILS) 83 % (16-70); WBC DIFF SAMPLE 100
[2016-08-06 10:52] LABS: PLATELET ESTIMATE SMEAR LOW (NORMAL); PLATELET MORPHOLOGY ENLARGED (NORMAL); SCAN/DIFF FINAL DIFF MANUAL
[2016-08-06] MEDS: RESP: ALBUTEROL 0.63 MG/3 ML NEB (SCH) NEB ×3 (11:44→19:26)
[2016-08-06] MEDS: RESP: IPRATROPIUM 0.5 MG/2.5 ML NEB NEB SCH ×3 (11:44→19:26)
[2016-08-06] MEDS: HALOPERIDOL 1 MG TAB PO SCH ×2 (13:08→17:56)
[2016-08-06] MEDS: ENOXAPARIN SODIUM 40 MG/0.4 ML SYRINGE SQ SCH (14:55)
[2016-08-06] MEDS: VANCOMYCIN 1,000 MG/NS 250 ML IV SCH ×2 (17:56)
--- NOTE | 2016-08-06 18:00 | RADRPT ---
EXAM DATE/TIME: 08/06/2016 17:13 [facility] COMPARISON: CT BRAIN W/O CONTRAST, July 28, 2016, 11:31. CT BRAIN W/O CONTRAST, 2016, 14:08. INDICATIONS : CVA. MEDICAL HISTORY : Seizures. SURGICAL HISTORY : None. ENCOUNTER: Initial ACUITY: 1 day PAIN SCORE: 0/10 LOCATION: cranial TECHNIQUE: Multiplanar, multisequence MRI of the brain was performed without contrast. FINDINGS: CEREBRUM: The ventricles are mildly prominent as are sulci consistent with atrophy. No evidence o f midline shift, mass lesion, hemorrhage or acute infarction. No extraaxial fluid collections are se en. The pituitary gland and suprasellar cistern are normal in configuration. WHITE MATTER: No significant signal abnormalities are seen in the white matter. POSTERIOR FOSSA: The cerebellum and brainstem are intact. The 4th ventricle is midline. The cere bellopontine angle is unremarkable. The cerebellar tonsils are normal in position. DIFFUSION IMAGING: No focal areas of restricted diffusion are seen. No evidence of acute infarct ion. EXTRACRANIAL: The visualized portions of the orbits and paranasal sinuses are unremarkable. CONCLUSION: Atrophy. No acute intracranial abnormality. Jason Rodrigues MD on August 06, 2016 at 17:57 Board Certified Radiologist. This report was verified electronically.
--- NOTE | 2016-08-06 19:34 | HHI.PR ---
Subjective Remarks He seems calmer today. In restraints. No fever. K+ level was low. Output is good. Objective Vital Signs Date Time Temp Pulse Resp B/P Pulse Ox O2 Delivery O2 Flow Rate FiO2 08/06/16 19:26 92 Nasal Cannula 3.00 08/06/16 16:33 97.6 121 20 106/77 96 08/06/16 12:05 98.4 89 20 126/72 93 08/06/16 08:23 97.9 88 20 124/68 90 08/06/16 07:59 93 Nasal Cannula 3.00 08/06/16 04:36 97.7 134 22 129/82 93 08/06/16 02:00 93 Nasal Cannula 3.00 Humidified 08/06/16 01:40 117 08/06/16 00:27 98.7 130 24 138/87 93 08/05/16 20:40 97.4 127 22 142/86 92 I/O 08/05/16 08/05/16 08/05/16 08/06/16 08/06/16 08/06/16 07:00 15:00 23:00 07:00 15:00 23:00 Intake Total 480 ml 499 ml 120 ml Output Total 600 ml 1500 ml Balance -600 ml -1500 ml 480 ml 499 ml 120 ml Intake Oral 480 ml 120 ml IV Total 499 ml Output Urine Total 600 ml 1500 ml # Voids 2 1 7 # Bowel Movements 1 1 3 Result Diagram: 08/06/1673008/06/1631 Objective Remarks GENERAL: This thinly built middle-aged white male who is anxious and mildly dyspneic. He is in restraints. HEENT: Head normocephalic. Pupils are reactive. Sclerae are clear. Tongue is dry. Throat is injected. NECK: Supple. No bruits or thyroid enlargement or lymphadenopathy. CHEST: Equal movements with expiratory wheeze in the upper chest. Basal crackles Bilateral. CARDIOVASCULAR: Heart sounds are regular S1-S2. No murmur. No S3. ABDOMEN: The abdomen is soft, scaphoid without masses. No organomegaly or tenderness. Bowel sounds are active. EXTREMITIES: No edema. There is muscle wasting of the extremities. No gross motor deficits. NEUROLOGICAL: Cranial nerves grossly intact. RECTAL: Exam is deferred. SKIN: Dry and warm. The patient also was quite agitated. Assessment and Plan Assessment and Plan IMPRESSION 1. Aspiration pneumonia. 2. COPD with emphysema. 3. Alcohol withdrawal with delirium tremens. 4. Thrombocytopenia. 5. Hypokalemia. Plan : 1. Continue antibiotics. 2. IV fluids at 60 CC. 3. Nebs qid , duoneb. 4. Solumedrol 40 mg IV bid. 5.Cont Haldol / Ativan PRN for agitation. 6. Replace Potassium . 7. BMP,CBC,CXR in am. Mulugeta Masters MD Aug 06, 2016 19:34
[2016-08-07] VITALS (9 sets, daily range): BP systolic 109–142; BP diastolic 66–88; PULSE 75–94; RESP 18–20; TEMP 95.5–98.3; O2SAT 90–100
[2016-08-07] MEDS: metroNIDAZOLE 500 MG TAB PO SCH ×4 (01:31→16:39)
[2016-08-07] MEDS: VANCOMYCIN 1,000 MG/NS 250 ML IV SCH ×4 (05:14→16:40)
[2016-08-07] MEDS: cloNIDine HCL 0.1 MG TAB PO SCH ×3 (05:15→21:37)
--- NOTE | 2016-08-07 05:53 | RADRPT ---
EXAM DATE/TIME: 08/07/2016 05:31 [facility] COMPARISON: CHEST SINGLE AP, August 05, 2016, 0:50. INDICATIONS : Short of breath, evaluate pneumonia MEDICAL HISTORY : seizures SURGICAL HISTORY : None. ENCOUNTER: Subsequent ACUITY: 2 weeks PAIN SCORE: 0/10 LOCATION: Bilateral chest FINDINGS: The heart size is normal. There is diffuse increased interstitial markings being worse on the right. These are improving. CONCLUSION: Persistent but improving interstitial disease being worse on the right. Fermin Stevenson MD on August 07, 2016 at 5:51 Board Certified Radiologist. This report was verified electronically.
[2016-08-07] MEDS: INSULIN ASPART SUPPLEMENTAL SCALE SQ SCH ×4 (06:27→21:00)
[2016-08-07 07:53] LABS: AUTOMATED NEUTROPHIL # 14.7 TH/MM3 (1.8-7.7); BASOPHIL # 0.1 TH/MM3 (0-0.2); BASOPHIL % 0.7 % (0.0-2.0); HEMATOCRIT 33.1 % (39.0-51.0); LYMPH % 2.6 % (9.0-44.0); LYMPHOCYTE # 0.4 TH/MM3 (1.0-4.8); MEAN CELL VOLUME 107.4 FL (80.0-100.0); MEAN CORPUSCULAR HEMOGLOBIN 36.7 PG (27.0-34.0); MEAN CORPUSCULAR HGB CONC 34.2 % (32.0-36.0); MONO % 2.7 % (0.0-8.0); PLATELET COUNT 113 TH/MM3 (150-450); RED BLOOD COUNT 3.08 MIL/MM3 (4.50-5.90); RED CELL DISTRIBUTION WIDTH 15.1 % (11.6-17.2); WHITE BLOOD COUNT 15.6 TH/MM3 (4.0-11.0)
[2016-08-07 08:02] LABS: HEMO FLAGS AUTO DIFF
[2016-08-07 08:14] LABS: BICARBONATE 29.1 MEQ/L (21.0-32.0); MAGNESIUM 2.2 MG/DL (1.5-2.5); POTASSIUM 4.4 MEQ/L (3.5-5.1)
[2016-08-07] MEDS: RESP: ALBUTEROL 0.63 MG/3 ML NEB (SCH) NEB ×4 (08:58→20:40)
[2016-08-07] MEDS: RESP: IPRATROPIUM 0.5 MG/2.5 ML NEB NEB SCH ×4 (08:58→20:40)
[2016-08-07 09:04] LABS: MYELOCYTES 1 % (0-0); NEUTROPHIL # MANUAL DIFF 14.2 TH/MM3 (1.8-7.7); POLYS (SEG NEUTROPHILS) 90 % (16-70); WBC DIFF SAMPLE 100
[2016-08-07 09:05] LABS: TARGET CELLS 1+ (NORMAL)
[2016-08-07 09:06] LABS: CORRECTED NUCLEATED RBC 1 /100 WBC (0-0)
[2016-08-07 09:07] LABS: PLATELET ESTIMATE SMEAR LOW (NORMAL); PLATELET MORPHOLOGY ENLARGED (NORMAL); SCAN/DIFF FINAL DIFF MANUAL
[2016-08-07] MEDS: POTASSIUM PHOSPHATE MONOBASIC 500 MG TAB PO SCH ×2 (09:43→21:45)
[2016-08-07] MEDS: DOCUSATE SODIUM 50 MG/SENNA 8.6 MG TAB PO SCH ×2 (09:43→21:00)
[2016-08-07] MEDS: MAGNESIUM OXIDE 400 MG TAB PO SCH ×2 (09:43→21:37)
[2016-08-07] MEDS: HALOPERIDOL 1 MG TAB PO SCH ×3 (09:44→16:39)
[2016-08-07] MEDS: LACTOBACILLUS ACIDOPHILUS TAB PO SCH ×3 (09:44→16:39)
[2016-08-07] MEDS: methylPREDNISolone SOD SUCC 40 MG/1 ML VIAL IV PUSH SCH (09:44)
[2016-08-07] MEDS: THIAMINE HCL 100 MG TAB PO SCH (09:44)
[2016-08-07] MEDS: SODIUM CHLORIDE 0.9% FLUSH 5 ML FLUSH FLUSH SCH ×2 (09:45→21:00)
[2016-08-07] MEDS: LEVOFLOXACIN 500 MG PREMIX INJ 100 ML IV SCH (09:45)
--- NOTE | 2016-08-07 10:49 | HHI.PR ---
Subjective Remarks Follow-up pneumonia and encephalopathy. He is less confused today. Denies any complaints requesting more water. Discussed with pulmonary and RN Objective Vitals Vital Signs Date Time Temp Pulse Resp B/P Pulse Ox O2 Delivery O2 Flow Rate FiO2 08/07/16 08:02 97.1 84 20 139/88 94 08/07/16 06:56 95.5 94 18 142/83 95 08/07/16 00:31 98.3 80 20 137/72 100 08/06/16 22:00 Nasal Cannula 3.00 Humidified 08/06/16 20:37 97.8 100 20 121/88 97 08/06/16 20:00 98 08/06/16 19:26 92 Nasal Cannula 3.00 08/06/16 16:33 97.6 121 20 106/77 96 08/06/16 12:05 98.4 89 20 126/72 93 I/O 08/06/16 08/06/16 08/06/16 08/07/16 08/07/16 08/07/16 07:00 15:00 23:00 07:00 15:00 23:00 Intake Total 499 ml 120 ml Balance 499 ml 120 ml Intake Oral 120 ml IV Total 499 ml # Voids 7 2 2 # Bowel Movements 3 0 0 Result Diagram: 08/07/1640 08/07/16 0740 Objective Remarks GENERAL: Middle-aged white male who is no distress on 3 L Skin: No lesions dry and warm HEENT: PERRLA, EOMI. No scleral icterus or conjunctival pallor. No lid lag or facial droop. CARDIOVASCULAR: Regular rate and rhythm No obvious murmurs to auscultation. RESPIRATORY decreased breath sounds GASTROINTESTINAL: Abdomen soft, non-tender, nondistended. BS normal. MUSCULOSKELETAL: Extremities without clubbing, cyanosis, or edema. No obvious deformities. NEUROLOGICAL: Awake and Confused. Moving both upper and lower extremities with generalized weakness. Nonfocal. Calm and cooperative Procedures none A/P Problem List: (1) Alcohol withdrawal ICD Code: F10.239 Status: Acute (2) Thrombocytopenia ICD Code: D69.6 Status: Acute (3) Hypomagnesemia ICD Code: E83.42 Status: Acute (4) Hypokalemia ICD Code: E87.6 Status: Acute (5) PNA (pneumonia) ICD Code: J18.9 Status: Acute (6) Tobacco abuse ICD Code: Z72.0 Status: Acute Assessment and Plan 1. Alcohol Withdrawal: +Alcohol Abuse w/ Acute Withdrawal, last drink approx 12pm 07/26/16. Alcohol 30. S/p Ativan and Thiamine in ER. Seizure Precautions, CIWA Protocol, Thiamine/MVT/Folate replacement. Improved tremors discontinue Precedex. Patient with a right preferential gaze which has resolved. Negative head CT. Neurochecks. He is encephalopathic unremarkable MRI of the brain and EEG. Ammonia level within normal limits. Neurochecks. Improving continue Haldol s 2. Hypokalemia and hypophosphatemia secondary to alcohol abuse. Replace with IV potassium phosphate. Repeat BMP and phosphorus in the morning 3. Hypomagnesemia: Mg 1.1, s/p replacement. Improved. Recheck in am and replace as needed. 4. Severe sepsis PNA: CXR w/ RLL and RML infiltrate, images reviewed by me. S /p Solu-Medrol and DuoNeb in ER for wheezing. Check sputum, negative urinary Legionella and pneumococcal antigen. Discontinued IV aztreonam, Zithromax and IV Flagyl and started by mouth Levaquin and Flagyl and stop date August 13 secondary to improving fevers but 2/2 worsening leukocytosis and respiratory status switched to IV levaquin 08/06 and added IV vanco 08/06. Repeat chest x- ray image interpreted by me with worsening pneumonia versus edema. CT showed consolidations. Improving using less oxygen. Leukocytosis at this time and likely contributed by steroids. Tobacco cessation 5. Thrombocytopenia: Presumably chronic secondary to alcohol abuse and splenic sequestration. No active bleeding at this time. Monitor closely. Repeat labs in am. Spleen not visualized on sonogram, liver with fatty infiltration. Fibrinogen level within normal limits. Head CT without acute findings. Improving 6. Cardiomyopathy with ejection fraction 30% secondary to sepsis. Trial FELTON inhibitor. Hold beta ashok secondary to recent wheezing. At this time he is not in fluid overload no need for further diuresis 7. FEN. Po 8. Hypertension and tachycardia secondary to #1. Worsening tachycardia secondary to infection and agitation. Continue clonidine and telemetry. Increased Haldol and decreased nebs with improved Hyperglycemia likely secondary to steroids. A1c 6.1. Continue sliding scale coverage Deconditioning. Physical therapy DVT Prophylaxis: Improving thrombocytopenia continue Lovenox Consult case management to obtain contact information of family Discharge Planning Patient improving he will need rehabilitation. Case management consult referred to [facility] Problem Qualifiers (1) Alcohol withdrawal: Qualified Code: F10.230 - Alcohol withdrawal, uncomplicated (2) PNA (pneumonia): Qualified Code: J18.1 - Pneumonia of right middle lobe due to infectious organism Mirza Stock MD Aug 07, 2016 10:49
--- NOTE | 2016-08-07 12:07 | EC ---
Study Study Date:08/06/2016 STUDY CONCLUSIONS SUMMARY - Left ventricle: The cavity size was normal. Wall thickness was normal. Systolic function was severely reduced. The estimated ejection fraction was in the range of 25% to 30%. Diffuse hypokinesis. - Aortic valve: Valve area: 3.34cm^2 (Vmax). If LV function is below 40, please consider prescribing an ACEI or ARB or document rationale for non-use. PROCEDURE DATA STUDY STATUS: Elective. Procedure: Transthoracic echocardiography. Image quality was poor. Scanning was performed from the parasternal, apical, and subcostal acoustic windows. Study completion: The patient tolerated the procedure well. Transthoracic echocardiography. M-mode, complete 2D, complete spectral Doppler, and color Doppler. Height: Height: 69in. Weight: Weight: 140.7lb. Body mass index: BMI: 20.8kg/m^2. Body surface area: BSA: 1.78m^2. Patient status: Inpatient. CARDIAC ANATOMY LEFT VENTRICLE: The cavity size was normal. Wall thickness was normal. Systolic function was severely reduced. The estimated ejection fraction was in the range of 25% to 30%. Diffuse hypokinesis. AORTIC VALVE: Trileaflet; normal thickness leaflets. Doppler: Transvalvular velocity was within the normal range. There was no stenosis. No regurgitation. Valve area: 3.34cm^2 (Vmax). Indexed valve area: 1.88cm^2/m^2 (Vmax). AORTA: Aortic root: The aortic root was normal in size. MITRAL VALVE: Structurally normal valve. Doppler: Transvalvular velocity was within the normal range. There was no evidence for stenosis. No regurgitation. LEFT ATRIUM: The atrium was normal in size. RIGHT VENTRICLE: The cavity size was normal. Wall thickness was normal. PULMONIC VALVE: Doppler: Transvalvular velocity was within the normal range. There was no evidence for stenosis. No regurgitation. TRICUSPID VALVE: Structurally normal valve. Doppler: Transvalvular velocity was within the normal range. No regurgitation. PULMONARY ARTERY: The main pulmonary artery was normal-sized. Systolic pressure was within the normal range. RIGHT ATRIUM: The atrium was normal in size. PERICARDIUM: There was no pericardial effusion. SYSTEMIC VEINS: Inferior vena cava: The vessel was normal in size. Patient weight: 140.7lb _Ejection fraction:_ 65-75% _Fractional shortening:_ 32% up to 5Kg 5-11.5Kg 11.6-22.9Kg 23-45Kg 45-57Kg Aortic Root 7-13 <17 13-22 17-27 17-27 LA diam 6-13 <23 24-38 33-47 37-40 RVID 10-17 7-15 7-15 7-18 8-17 LVIDd 12-22 <32 24-38 33-47 37-40 LVPW 2-4 3-6 5-7 6-8 7-8 IVS 2-4 3-6 5-7 6-8 7-8 BASIC MEASUREMENTS ADULT NORMAL Left ventricle LV internal dimension, ED, chordal *42.5 mm 43-52 level, PLAX LV internal dimension, ES, chordal *38.7 mm 23-38 level, PLAX Fractional shortening, chordal level, *9 % >29 PLAX LV posterior wall thickness, ED 8.19 mm IVS/LVPW ratio, ED 1.11 <1.3 Ventricular septum Septal thickness, ED 9.05 mm Aortic valve Leaflet separation 24 mm 15-26 BASIC MEASUREMENTS ADULT NORMAL Left ventricle LV internal dimension, ED *63.6 mm 37-56 LV internal dimension, ES 43.9 mm Fractional shortening 31 % 29-45 LV posterior wall, ED *11.3 mm 6-11 Septal/posterior wall ratio, ED 1 Relative wall thickness, ED 0.36 <0.45 Volume, ED, Teichholz 206 ml Volume, ES, Teichholz 87.2 ml Ejection fraction, Teichholz *57.7 % 64-83 Stroke volume, Teichholz 118.8 ml Volume index, ED, Teichholz 116 ml/m^2 Volume index, ES, Teichholz 49 ml/m^2 Stroke index, Teichholz 66.7 ml/m^2 Wall mass 319.5 g Wall mass index 179.5 g/m^2 Mass/height 1.82 g/cm Ventricular septum Septal thickness, ED 11.3 mm Aortic valve Leaflet separation 24 mm 15-26 Aorta Root diameter, ED 34 mm 20-37 Left atrium Anterior-posterior dimension, ES 35 mm 19-40 Anterior-posterior dimension index, ES 1.97 cm/m^2 <2.2 LA/aortic root ratio 1.03 DOPPLER MEASUREMENTS ADULT NORMAL Aortic valve Peak velocity, S 73.3 cm/s Valve area, Vmax 3.34 cm^2 Valve area index, Vmax 1.88 cm^2/m^2 LEGEND: Mean values are shown as u=mean value. Asterisk (*) hobson values outside specified normal range. Prepared and signed by Frederick Renae [id number]
[2016-08-07] MEDS: ENOXAPARIN SODIUM 40 MG/0.4 ML SYRINGE SQ SCH (16:38)
--- NOTE | 2016-08-07 19:47 | HHI.PR ---
Subjective Remarks He is better today.off restraints. No fever. K+ level better. CXR has improved Output is good. Oriented.On O2 2l. Objective Vital Signs Date Time Temp Pulse Resp B/P Pulse Ox O2 Delivery O2 Flow Rate FiO2 08/07/16 16:20 96.7 75 20 128/79 93 08/07/16 16:05 93 Nasal Cannula 3.00 Humidified 08/07/16 12:31 96.6 89 20 122/74 97 08/07/16 12:06 94 Nasal Cannula 3.00 Humidified 08/07/16 11:53 81 08/07/16 11:46 94 Nasal Cannula 3.00 Humidified 08/07/16 08:02 97.1 84 20 139/88 94 08/07/16 06:56 95.5 94 18 142/83 95 08/07/16 00:31 98.3 80 20 137/72 100 08/06/16 22:00 Nasal Cannula 3.00 Humidified 08/06/16 20:37 97.8 100 20 121/88 97 08/06/16 20:00 98 I/O 08/06/16 08/06/16 08/06/16 08/07/16 08/07/16 08/07/16 07:00 15:00 23:00 07:00 15:00 23:00 Intake Total 499 ml 120 ml 480 ml Balance 499 ml 120 ml 480 ml Intake Oral 120 ml 480 ml IV Total 499 ml # Voids 7 2 2 2 # Bowel Movements 3 0 0 1 Result Diagram: 08/07/16 0740 08/07/16 0740 Objective Remarks GENERAL: This thinly built middle-aged white male who is alert and breathing easy. HEENT: Head normocephalic. Pupils are reactive. Sclerae are clear. Tongue is dry. Throat is injected. NECK: Supple. No bruits or thyroid enlargement or lymphadenopathy. CHEST: Equal movements with expiratory wheeze in the upper chest. Basal crackles heard. CARDIOVASCULAR: Heart sounds are regular S1-S2. No murmur. No S3. ABDOMEN: The abdomen is soft, scaphoid without masses. No organomegaly or tenderness. Bowel sounds are active. EXTREMITIES: No edema. There is muscle wasting of the extremities. No gross motor deficits. NEUROLOGICAL: 1 + reflexes. RECTAL: Exam is deferred. SKIN: Dry and warm. The patient is calm and cooperative. Assessment and Plan Assessment and Plan IMPRESSION 1. Aspiration pneumonia. 2. COPD with emphysema. 3. Alcohol withdrawal with delirium tremens. 4. Thrombocytopenia. 5. Hypokalemia. Plan : 1. Continue antibiotics. 2. D/C IV's 3. Nebs qid , duoneb. 4. D/C Solumedrol 5.Cont Haldol / Ativan PRN for agitation. 6. Symbicort 160/4.5 mcg , 2puffs bid 7. BMP,CBC,CXR in am. Mulugeta Masters MD Aug 07, 2016 19:47
[2016-08-07] MEDS: BUDESONIDE-FORMOTEROL 160/4.5 MCG INHALER INH SCH (21:00)
[2016-08-08] VITALS (9 sets, daily range): BP systolic 101–143; BP diastolic 57–78; PULSE 68–89; RESP 20; TEMP 96.1–99.1; O2SAT 91–96
[2016-08-08] MEDS ORDERED: PHARMACY ORDERED LAB XX ONE (05:45)
[2016-08-08] MEDS: cloNIDine HCL 0.1 MG TAB PO SCH ×3 (06:37→21:39)
[2016-08-08] MEDS: metroNIDAZOLE 500 MG TAB PO SCH ×4 (06:37→16:38)
[2016-08-08] MEDS: VANCOMYCIN 1,000 MG/NS 250 ML IV SCH ×6 (06:50→21:39)
[2016-08-08] MEDS: INSULIN ASPART SUPPLEMENTAL SCALE SQ SCH ×4 (06:51→22:08)
[2016-08-08 07:01] LABS: CRITICAL VALUE YES
--- NOTE | 2016-08-08 07:57 | RADRPT ---
EXAM DATE/TIME: 08/08/2016 06:29 [facility] COMPARISON: CHEST SINGLE AP, August 07, 2016, 5:31. INDICATIONS : Pneumonia. MEDICAL HISTORY : Seizures. SURGICAL HISTORY : None. ENCOUNTER: Subsequent ACUITY: 2 weeks PAIN SCORE: 0/10 LOCATION: Bilateral chest FINDINGS: A single view of the chest demonstrates interstitial densities greater throughout the right lung. Pat bere airspace disease throughout the right upper lobe, right lower lobe and left lower lobe. Heart nor mal in size. The cardiomediastinal contours are unremarkable. Osseous structures are intact. CONCLUSION: Interstitial disease with patchy airspace disease predominantly throughout the right lung. There has been continued improvement. Adam Young MD on August 08, 2016 at 7:54 Board Certified Radiologist. This report was verified electronically.
[2016-08-08] MEDS: RESP: IPRATROPIUM 0.5 MG/2.5 ML NEB NEB SCH ×4 (07:58→20:50)
[2016-08-08] MEDS: RESP: ALBUTEROL 0.63 MG/3 ML NEB (SCH) NEB ×4 (07:58→20:50)
[2016-08-08] MEDS: LACTOBACILLUS ACIDOPHILUS TAB PO SCH ×3 (09:00→16:38)
[2016-08-08] MEDS ORDERED: predniSONE 20 MG TAB PO SCH (09:00)
[2016-08-08] MEDS: BUDESONIDE-FORMOTEROL 160/4.5 MCG INHALER INH SCH ×2 (09:00→21:40)
--- NOTE | 2016-08-08 09:34 | HHI.PR ---
Subjective Remarks F/U PNA. Nauseous and fatigued dw RN Objective Vitals Vital Signs Date Time Temp Pulse Resp B/P Pulse Ox O2 Delivery O2 Flow Rate FiO2 08/08/16 09:04 94 Nasal Cannula 3.00 Humidified 08/08/16 09:03 73 08/08/16 09:03 73 08/08/16 08:00 94 Nasal Cannula 2.00 08/08/16 07:51 98.5 68 20 119/78 94 08/08/16 04:00 97.4 89 20 119/57 96 08/08/16 00:00 97.1 80 20 111/76 94 08/07/16 20:41 98 Nasal Cannula 3.00 08/07/16 20:00 97.0 78 20 109/66 90 08/07/16 19:00 78 08/07/16 16:20 96.7 75 20 128/79 93 08/07/16 16:05 93 Nasal Cannula 3.00 Humidified 08/07/16 12:31 96.6 89 20 122/74 97 08/07/16 12:06 94 Nasal Cannula 3.00 Humidified 08/07/16 11:53 81 08/07/16 11:46 94 Nasal Cannula 3.00 Humidified I/O 08/07/16 08/07/16 08/07/16 08/08/16 08/08/16 08/08/16 07:00 15:00 23:00 07:00 15:00 23:00 Intake Total 480 ml 480 ml 240 ml Output Total 125 ml Balance 480 ml 480 ml 240 ml -125 ml Intake Oral 480 ml 480 ml 240 ml Output Urine Total 125 ml # Voids 2 2 2 3 # Bowel Movements 0 1 Result Diagram: 08/07/16 0740 08/07/16 0740 Objective Remarks GENERAL: Middle-aged white male who is no distress on 3 L Skin: No lesions dry and warm HEENT: PERRLA, EOMI. No scleral icterus or conjunctival pallor. No lid lag or facial droop. CARDIOVASCULAR: Regular rate and rhythm No obvious murmurs to auscultation. RESPIRATORY decreased breath sounds GASTROINTESTINAL: Abdomen soft, non-tender, nondistended. BS normal. MUSCULOSKELETAL: Extremities without clubbing, cyanosis, or edema. No obvious deformities. NEUROLOGICAL: Awake and Confused. Moving both upper and lower extremities with generalized weakness. Nonfocal. Procedures none A/P Problem List: (1) Alcohol withdrawal ICD Code: F10.239 Status: Acute (2) Thrombocytopenia ICD Code: D69.6 Status: Acute (3) Hypomagnesemia ICD Code: E83.42 Status: Acute (4) Hypokalemia ICD Code: E87.6 Status: Acute (5) PNA (pneumonia) ICD Code: J18.9 Status: Acute (6) Tobacco abuse ICD Code: Z72.0 Status: Acute Assessment and Plan 1. Alcohol Withdrawal: +Alcohol Abuse w/ Acute Withdrawal, last drink approx 12pm 07/26/16. Alcohol 30. S/p Ativan and Thiamine in ER. Seizure Precautions, CIWA Protocol, Thiamine/MVT/Folate replacement. Improved tremors discontinue Precedex. Patient with a right preferential gaze which has resolved. Negative head CT. Neurochecks. He is encephalopathic unremarkable MRI of the brain and EEG. Ammonia level within normal limits. Neurochecks. Improving continue Haldol 2. Hypokalemia and hypophosphatemia secondary to alcohol abuse. Replace with IV potassium phosphate. Repeat BMP and phosphorus in the morning 3. Hypomagnesemia: Mg 1.1, s/p replacement. Improved. Recheck in am and replace as needed. 4. Severe sepsis PNA: CXR w/ RLL and RML infiltrate, images reviewed by me. S /p Solu-Medrol and DuoNeb in ER for wheezing. Check sputum, negative urinary Legionella and pneumococcal antigen. Discontinued IV aztreonam, Zithromax and IV Flagyl and started by mouth Levaquin and Flagyl and stop date August 13 secondary to improving fevers but 2/2 worsening leukocytosis and respiratory status switched to IV levaquin 08/06 and added IV vanco 08/06. Repeat chest x- ray image interpreted by me with worsening pneumonia versus edema. CT showed consolidations. Improving clinically as well radiographic findings on f/u CXR, using less oxygen. Leukocytosis at this time contributed by steroids. Tobacco cessation 5. Thrombocytopenia: Presumably chronic secondary to alcohol abuse and splenic sequestration. No active bleeding at this time. Monitor closely. Repeat labs in am. Spleen not visualized on sonogram, liver with fatty infiltration. Fibrinogen level within normal limits. Head CT without acute findings. Improving 6. Cardiomyopathy with ejection fraction 30% secondary to sepsis. Trial FELTON inhibitor. Hold beta ashok secondary to recent wheezing. At this time he is not in fluid overload no need for further diuresis 7. FEN. Po 8. Hypertension and tachycardia secondary to #1. Worsening tachycardia secondary to infection and agitation. Continue clonidine and telemetry. Increased Haldol and decreased nebs. Improved Hyperglycemia likely secondary to steroids. A1c 6.1. Continue sliding scale coverage Deconditioning. Physical therapy DVT Prophylaxis: Improving thrombocytopenia continue Lovenox Consult case management to obtain contact information of family Discharge Planning Patient improving he will need rehabilitation. Case management consult referred to [facility] Problem Qualifiers (1) Alcohol withdrawal: Qualified Code: F10.230 - Alcohol withdrawal, uncomplicated (2) PNA (pneumonia): Qualified Code: J18.1 - Pneumonia of right middle lobe due to infectious organism Mirza Stock MD Aug 08, 2016 09:34
[2016-08-08] MEDS: DOCUSATE SODIUM 50 MG/SENNA 8.6 MG TAB PO SCH ×2 (09:36→21:40)
[2016-08-08] MEDS: HALOPERIDOL 1 MG TAB PO SCH ×3 (09:37→16:38)
[2016-08-08] MEDS: SODIUM CHLORIDE 0.9% FLUSH 5 ML FLUSH FLUSH SCH ×2 (09:37→21:42)
[2016-08-08] MEDS: THIAMINE HCL 100 MG TAB PO SCH (09:38)
[2016-08-08] MEDS: MAGNESIUM OXIDE 400 MG TAB PO SCH ×2 (09:38→21:40)
[2016-08-08] MEDS: POTASSIUM PHOSPHATE MONOBASIC 500 MG TAB PO SCH ×2 (09:38→21:39)
[2016-08-08] MEDS: LISINOPRIL 5 MG TAB PO SCH (09:38)
[2016-08-08] MEDS: LEVOFLOXACIN 500 MG PREMIX INJ 100 ML IV SCH (09:39)
[2016-08-08] MEDS: ENOXAPARIN SODIUM 40 MG/0.4 ML SYRINGE SQ SCH (16:39)
--- NOTE | 2016-08-08 18:22 | HHI.PR ---
Subjective Remarks He is alert and cooperative. No fever. K+ level better. CXR has improved Sats 88 on RA.On O2 2l. Objective Vital Signs Date Time Temp Pulse Resp B/P Pulse Ox O2 Delivery O2 Flow Rate FiO2 08/08/16 16:46 Nasal Cannula 3.00 Humidified 08/08/16 15:57 96.1 75 20 101/61 91 08/08/16 12:12 98.7 88 20 120/72 91 08/08/16 12:01 91 Nasal Cannula 3.00 Humidified 08/08/16 09:04 94 Nasal Cannula 3.00 Humidified 08/08/16 09:03 73 08/08/16 09:03 73 08/08/16 08:00 94 Nasal Cannula 2.00 08/08/16 07:51 98.5 68 20 119/78 94 08/08/16 04:00 97.4 89 20 119/57 96 08/08/16 00:00 97.1 80 20 111/76 94 08/07/16 20:41 98 Nasal Cannula 3.00 08/07/16 20:00 97.0 78 20 109/66 90 08/07/16 19:00 78 I/O 08/07/16 08/07/16 08/07/16 08/08/16 08/08/16 08/08/16 07:00 15:00 23:00 07:00 15:00 23:00 Intake Total 480 ml 480 ml 240 ml 600 ml Output Total 125 ml Balance 480 ml 480 ml 240 ml 475 ml Intake Oral 480 ml 480 ml 240 ml 600 ml Output Urine Total 125 ml # Voids 2 2 2 3 3 # Bowel Movements 0 1 1 Result Diagram: 08/07/16 0740 08/07/16 0740 Objective Remarks GENERAL: This thinly built middle-aged white male who is alert and breathing easy. HEENT: Head normocephalic. Pupils are reactive. Sclerae are clear. Tongue is dry. Throat is clear. NECK: Supple. No bruits or thyroid enlargement or lymphadenopathy. CHEST: Equal movements with expiratory wheeze in the upper chest. Basal crackles heard. CARDIOVASCULAR: Heart sounds are regular S1-S2. No murmur. No S3. ABDOMEN: The abdomen is soft, scaphoid without masses. No organomegaly or tenderness. Bowel sounds are active. EXTREMITIES: No edema. There is muscle wasting of the extremities. No gross motor deficits. NEUROLOGICAL: 1 + reflexes. oriented RECTAL: Exam is deferred. SKIN: Dry and warm. Assessment and Plan Assessment and Plan IMPRESSION 1. Aspiration pneumonia.Resolving 2. COPD with emphysema. 3. Alcohol withdrawal with delirium tremens. 4. Thrombocytopenia. 5. Hypokalemia. Plan : 1. Continue antibiotics. 2. Prednisone 10 mg bid. 3. Nebs qid , duoneb. 4. Rehab placement 5. Haldol / Ativan PRN for agitation. 6. Symbicort 160/4.5 mcg , 2puffs bid 7. PFT in Mulugeta Masters MD Aug 08, 2016 18:22
[2016-08-08] MEDS: predniSONE 10 MG TAB PO SCH (21:40)
[2016-08-09] VITALS (8 sets, daily range): BP systolic 93–110; BP diastolic 54–70; PULSE 66–89; RESP 17–20; TEMP 95.4–98.3; O2SAT 90–96
[2016-08-09] MEDS: metroNIDAZOLE 500 MG TAB PO SCH ×4 (01:05→16:36)
[2016-08-09] MEDS: VANCOMYCIN 1,000 MG/NS 250 ML IV SCH ×4 (04:50→12:36)
[2016-08-09] MEDS: cloNIDine HCL 0.1 MG TAB PO SCH ×3 (06:41→22:11)
[2016-08-09] MEDS: INSULIN ASPART SUPPLEMENTAL SCALE SQ SCH ×4 (06:44→21:00)
--- NOTE | 2016-08-09 07:58 | HHI.PR ---
Subjective Remarks Follow-up pneumonia. Complaining he cannot sleep. Denies shortness of breath though he is using more oxygen at 4 L today. Discussed with RN Objective Vitals Vital Signs Date Time Temp Pulse Resp B/P Pulse Ox O2 Delivery O2 Flow Rate FiO2 08/09/16 04:00 97.4 68 18 110/70 96 08/09/16 00:00 97.4 76 20 110/58 90 08/08/16 20:50 92 Nasal Cannula 2.00 08/08/16 20:00 99.1 72 20 143/71 94 08/08/16 16:46 Nasal Cannula 3.00 Humidified 08/08/16 15:57 96.1 75 20 101/61 91 08/08/16 12:12 98.7 88 20 120/72 91 08/08/16 12:01 91 Nasal Cannula 3.00 Humidified 08/08/16 09:04 94 Nasal Cannula 3.00 Humidified 08/08/16 09:03 73 08/08/16 09:03 73 08/08/16 08:00 94 Nasal Cannula 2.00 I/O 08/08/16 08/08/16 08/08/16 08/09/16 08/09/16 08/09/16 06:59 14:59 22:59 06:59 14:59 22:59 Intake Total 240 ml 600 ml 36 ml 240 ml Output Total 125 ml 150 ml Balance 240 ml 475 ml 36 ml 90 ml Intake Oral 240 ml 600 ml 36 ml 240 ml Output Urine Total 125 ml 150 ml # Voids 3 3 3 5 # Bowel Movements 1 1 Result Diagram: 08/07/16 0740 08/07/16 0740 Imaging Last Impressions Chest X-Ray 08/08/16 0600 Signed Impressions: Service Date/Time: Monday, August 08, 2016 06:29 - CONCLUSION: Interstitial disease with patchy airspace disease predominantly throughout the right lung. There has been continued improvement. Adam Young MD Brain MRI 08/06/16 0000 Signed Impressions: Service Date/Time: Saturday, August 06, 2016 17:13 - CONCLUSION: Atrophy. No acute intracranial abnormality. Jason Rodrigues MD Chest CT 08/05/16 1610 Signed Impressions: Service Date/Time: Saturday, August 06, 2016 01:32 - CONCLUSION: 1. Fairly diffuse areas of consolidation. The rapid nature of the onset comparing prior chest x-rays suggest progressing inflammatory/infectious process versus edema. 2. Underlying chronic appearing emphysematous change. 3. Bilateral mild pleural effusions being worse on the right. Fermin Stevenson MD Head CT 08/01/16 0000 Signed Impressions: Service Date/Time: Monday, August 01, 2016 14:08 - CONCLUSION: 1. No acute intracranial abnormality. 2. Subcutaneous emphysema in the upper neck Adam Young MD Liver Ultrasound 07/27/16 0000 Signed Impressions: Service Date/Time: Wednesday, July 27, 2016 12:07 - CONCLUSION: 1. Enlarged , echogenic liver suggesting some fatty infiltration. 2. Limited visualization of the pancreas with nonvisualization of the spleen. 3. Otherwise negative. Ki Carlos MD Objective Remarks GENERAL: Middle-aged white male who is no distress on 4 L Skin: No lesions dry and warm HEENT: PERRLA, EOMI. No scleral icterus or conjunctival pallor. No lid lag or facial droop. CARDIOVASCULAR: Regular rate and rhythm No obvious murmurs to auscultation. RESPIRATORY decreased breath sounds GASTROINTESTINAL: Abdomen soft, non-tender, nondistended. BS normal. MUSCULOSKELETAL: Extremities without clubbing, cyanosis, or edema. No obvious deformities. NEUROLOGICAL: Awake and Confused. Moving both upper and lower extremities with generalized weakness. Procedures none A/P Problem List: (1) Alcohol withdrawal ICD Code: F10.239 Status: Acute (2) Thrombocytopenia ICD Code: D69.6 Status: Acute (3) Hypomagnesemia ICD Code: E83.42 Status: Acute (4) Hypokalemia ICD Code: E87.6 Status: Acute (5) PNA (pneumonia) ICD Code: J18.9 Status: Acute (6) Tobacco abuse ICD Code: Z72.0 Status: Acute Assessment and Plan 1. Alcohol Withdrawal: +Alcohol Abuse w/ Acute Withdrawal, last drink approx 12pm 07/26/16. Alcohol 30. S/p Ativan and Thiamine in ER. Seizure Precautions, CIWA Protocol, Thiamine/MVT/Folate replacement. Improved tremors discontinue Precedex. Patient with a right preferential gaze which has resolved. Negative head CT. Neurochecks. He is encephalopathic unremarkable MRI of the brain and EEG. Ammonia level within normal limits. Neurochecks. Improving continue Haldol 2. Hypokalemia and hypophosphatemia secondary to alcohol abuse. Replaced with IV potassium phosphate. Repeat BMP and phosphorus as needed 3. Hypomagnesemia: Mg 1.1, s/p replacement. Improved. Recheck and replace as needed. 4. Severe sepsis PNA: CXR w/ RLL and RML infiltrate, images reviewed by me. S /p Solu-Medrol and DuoNeb in ER for wheezing. Check sputum, negative urinary Legionella and pneumococcal antigen. Discontinued IV aztreonam, Zithromax and IV Flagyl and started by mouth Levaquin and Flagyl and stop date August 13 secondary to improving fevers but 2/2 worsening leukocytosis and respiratory status switched to IV levaquin 08/06 and added IV vanco 08/06. Repeat chest x- ray image interpreted by me with worsening pneumonia versus edema. CT showed consolidations. Improving clinically as well radiographic findings on f/u CXR, but requiring more oxygen today. We'll keep same IV antibiotics and IV steroids for now. Leukocytosis at this time contributed by steroids. Tobacco cessation 5. Thrombocytopenia: Presumably chronic secondary to alcohol abuse and splenic sequestration. No active bleeding at this time. Monitor closely. Repeat labs in am. Spleen not visualized on sonogram, liver with fatty infiltration. Fibrinogen level within normal limits. Head CT without acute findings. Improving 6. Cardiomyopathy with ejection fraction 30% secondary to sepsis. Trial FELTON inhibitor. Hold beta ashok secondary to recent wheezing. At this time he is not in fluid overload no need for further diuresis 7. FEN. Po 8. Hypertension and tachycardia secondary to #1. Worsening tachycardia secondary to infection and agitation. Continue clonidine and telemetry. Increased Haldol and decreased nebs. Improved Hyperglycemia likely secondary to steroids. A1c 6.1. Continue sliding scale coverage Deconditioning. Physical therapy DVT Prophylaxis: Improving thrombocytopenia continue Lovenox Consult case management to obtain contact information of family Discharge Planning Patient improving he will need rehabilitation. Case management consult referred to [facility]i but declined patient. DC when cleared by PT and when home oxygen is arranged Problem Qualifiers (1) Alcohol withdrawal: Qualified Code: F10.230 - Alcohol withdrawal, uncomplicated (2) PNA (pneumonia): Qualified Code: J18.1 - Pneumonia of right middle lobe due to infectious organism Mirza Stock MD Aug 09, 2016 07:58
[2016-08-09] MEDS ORDERED: OXYC-392 PO (09:35)
[2016-08-09] MEDS: RESP: IPRATROPIUM 0.5 MG/2.5 ML NEB NEB SCH ×4 (09:36→20:00)
[2016-08-09] MEDS: RESP: ALBUTEROL 0.63 MG/3 ML NEB (SCH) NEB ×4 (09:36→20:00)
[2016-08-09] MEDS: POTASSIUM PHOSPHATE MONOBASIC 500 MG TAB PO SCH ×2 (11:09→22:11)
[2016-08-09] MEDS: LISINOPRIL 5 MG TAB PO SCH (11:09)
[2016-08-09] MEDS: THIAMINE HCL 100 MG TAB PO SCH (11:09)
[2016-08-09] MEDS: predniSONE 10 MG TAB PO SCH ×2 (11:10→22:11)
[2016-08-09] MEDS: LACTOBACILLUS ACIDOPHILUS TAB PO SCH ×3 (11:10→16:36)
[2016-08-09] MEDS: MAGNESIUM OXIDE 400 MG TAB PO SCH ×2 (11:10→22:11)
[2016-08-09] MEDS: HALOPERIDOL 1 MG TAB PO SCH ×3 (11:10→16:36)
[2016-08-09] MEDS: BUDESONIDE-FORMOTEROL 160/4.5 MCG INHALER INH SCH ×2 (11:11→22:10)
[2016-08-09] MEDS: LEVOFLOXACIN 500 MG PREMIX INJ 100 ML IV SCH (11:11)
[2016-08-09] MEDS: DOCUSATE SODIUM 50 MG/SENNA 8.6 MG TAB PO SCH ×2 (11:11→21:00)
[2016-08-09] MEDS: SODIUM CHLORIDE 0.9% FLUSH 5 ML FLUSH FLUSH SCH ×2 (11:11→22:12)
[2016-08-09] MEDS ORDERED: PHARMACY ORDERED LAB XX ONE (11:45)
[2016-08-09] MEDS: ENOXAPARIN SODIUM 40 MG/0.4 ML SYRINGE SQ SCH (14:58)
--- NOTE | 2016-08-09 17:53 | HHI.PR ---
Subjective Remarks He is feeling better. No fever. On IV antibiotics Vanco and Levaquin. CXR has improved On O2 3l. Objective Vital Signs Date Time Temp Pulse Resp B/P Pulse Ox O2 Delivery O2 Flow Rate FiO2 08/09/16 16:50 98.3 76 18 100/58 93 08/09/16 12:51 96.2 89 20 93/59 94 08/09/16 09:40 93 Nasal Cannula 3.00 08/09/16 08:39 95.4 85 20 106/55 93 08/09/16 07:00 66 08/09/16 04:00 97.4 68 18 110/70 96 08/09/16 01:05 Nasal Cannula 3.00 08/09/16 00:00 97.4 76 20 110/58 90 08/08/16 20:50 92 Nasal Cannula 2.00 08/08/16 20:00 99.1 72 20 143/71 94 I/O 08/08/16 08/08/16 08/08/16 08/09/16 08/09/16 08/09/16 07:00 15:00 23:00 07:00 15:00 23:00 Intake Total 240 ml 600 ml 36 ml 240 ml 480 ml Output Total 125 ml 150 ml Balance 240 ml 475 ml 36 ml 90 ml 480 ml Intake Oral 240 ml 600 ml 36 ml 240 ml 480 ml Output Urine Total 125 ml 150 ml # Voids 3 3 3 5 2 # Bowel Movements 1 1 1 Result Diagram: 08/07/16 0740 08/09/16 0912 Objective Remarks GENERAL: This thinly built middle-aged white male who is alert ,oriented.. HEENT: Head normocephalic. Pupils are reactive. Sclerae are clear. Tongue is dry. Throat is clear. NECK: Supple. No bruits or thyroid enlargement or lymphadenopathy. CHEST: Equal movements with expiratory wheeze in the upper chest.Few Basal crackles heard. CARDIOVASCULAR: Heart sounds are regular S1-S2. No murmur. No S3. ABDOMEN: The abdomen is soft, scaphoid without masses. No organomegaly or tenderness. Bowel sounds are active. EXTREMITIES: No edema. There is muscle wasting of the extremities. No gross motor deficits. NEUROLOGICAL: 1 + reflexes. oriented RECTAL: Exam is deferred. SKIN: Dry and warm. Assessment and Plan Assessment and Plan IMPRESSION 1. Aspiration pneumonia.Resolving 2. COPD with emphysema. 3. Alcohol withdrawal with delirium tremens. 4. Thrombocytopenia. 5. Hypokalemia. Plan : 1. Continue IV antibiotics. 2. Prednisone 10 mg bid. 3. Nebs qid , duoneb. 4. Rehab placement. 5. D/c Haldol 6. Symbicort 160/4.5 mcg , 2puffs bid 7. Switch to PO meds in am if stable. Mulugeta Masters MD Aug 09, 2016 17:53
[2016-08-09] MEDS: VANCOMYCIN INJ 1,250 MG in SODIUM CHLOR 0.9% 250 ML INJ 250 ML IV SCH (22:10)
[2016-08-10] VITALS (9 sets, daily range): BP systolic 99–157; BP diastolic 54–74; PULSE 63–98; RESP 16–20; TEMP 95.9–98; O2SAT 90–97
[2016-08-10] MEDS: metroNIDAZOLE 500 MG TAB PO SCH ×5 (00:56→23:29)
[2016-08-10] MEDS: VANCOMYCIN INJ 1,250 MG in SODIUM CHLOR 0.9% 250 ML INJ 250 ML IV SCH ×2 (04:52→12:21)
[2016-08-10] MEDS: cloNIDine HCL 0.1 MG TAB PO SCH ×3 (06:50→22:00)
[2016-08-10] MEDS: RESP: ALBUTEROL 0.63 MG/3 ML NEB (SCH) NEB ×4 (08:00→21:09)
[2016-08-10] MEDS: RESP: IPRATROPIUM 0.5 MG/2.5 ML NEB NEB SCH ×4 (08:00→21:09)
[2016-08-10] MEDS: LISINOPRIL 5 MG TAB PO SCH (08:45)
[2016-08-10] MEDS: LEVOFLOXACIN 500 MG PREMIX INJ 100 ML IV SCH (09:02)
[2016-08-10] MEDS: SODIUM CHLORIDE 0.9% FLUSH 5 ML FLUSH FLUSH SCH ×2 (09:02→23:30)
[2016-08-10] MEDS: THIAMINE HCL 100 MG TAB PO SCH (09:02)
[2016-08-10] MEDS: BUDESONIDE-FORMOTEROL 160/4.5 MCG INHALER INH SCH ×2 (09:02→23:29)
[2016-08-10] MEDS: MAGNESIUM OXIDE 400 MG TAB PO SCH ×2 (09:03→23:22)
[2016-08-10] MEDS: predniSONE 10 MG TAB PO SCH ×2 (09:03→23:23)
[2016-08-10] MEDS: HALOPERIDOL 1 MG TAB PO SCH ×3 (09:03→17:11)
[2016-08-10] MEDS: LACTOBACILLUS ACIDOPHILUS TAB PO SCH ×3 (09:03→17:10)
[2016-08-10] MEDS: DOCUSATE SODIUM 50 MG/SENNA 8.6 MG TAB PO SCH ×2 (09:03→21:00)
[2016-08-10] MEDS: POTASSIUM PHOSPHATE MONOBASIC 500 MG TAB PO SCH ×2 (09:04→23:29)
--- NOTE | 2016-08-10 09:59 | HHI.PR ---
Subjective Remarks Follow-up pneumonia. He is doing better on room air since this morning. Denies shortness of breath. Discussed with RN Objective Vitals Vital Signs Date Time Temp Pulse Resp B/P Pulse Ox O2 Delivery O2 Flow Rate FiO2 08/10/16 08:20 96.5 70 18 100/56 90 08/10/16 05:52 97.2 69 16 115/56 93 08/10/16 00:20 Nasal Cannula 2.00 08/10/16 00:12 97.0 72 16 126/62 96 08/09/16 20:10 97.6 74 17 102/54 96 08/09/16 19:28 93 Nasal Cannula 3.00 08/09/16 16:50 98.3 76 18 100/58 93 08/09/16 12:51 96.2 89 20 93/59 94 I/O 08/09/16 08/09/16 08/09/16 08/10/16 08/10/16 08/10/16 07:00 15:00 23:00 07:00 15:00 23:00 Intake Total 240 ml 480 ml 240 ml 120 ml Output Total 150 ml 300 ml 400 ml Balance 90 ml 480 ml -60 ml -280 ml Intake Oral 240 ml 480 ml 240 ml 120 ml Output Urine Total 150 ml 300 ml 400 ml # Voids 5 2 # Bowel Movements 1 Result Diagram: 08/07/16 0740 08/09/16 0912 Imaging Last Impressions Chest X-Ray 08/08/16 0600 Signed Impressions: Service Date/Time: Monday, August 08, 2016 06:29 - CONCLUSION: Interstitial disease with patchy airspace disease predominantly throughout the right lung. There has been continued improvement. Adam Young MD Brain MRI 08/06/16 0000 Signed Impressions: Service Date/Time: Saturday, August 06, 2016 17:13 - CONCLUSION: Atrophy. No acute intracranial abnormality. Jason Rodrigues MD Chest CT 08/05/16 1610 Signed Impressions: Service Date/Time: Saturday, August 06, 2016 01:32 - CONCLUSION: 1. Fairly diffuse areas of consolidation. The rapid nature of the onset comparing prior chest x-rays suggest progressing inflammatory/infectious process versus edema. 2. Underlying chronic appearing emphysematous change. 3. Bilateral mild pleural effusions being worse on the right. Fermin Stevenson MD Head CT 08/01/16 0000 Signed Impressions: Service Date/Time: Monday, August 01, 2016 14:08 - CONCLUSION: 1. No acute intracranial abnormality. 2. Subcutaneous emphysema in the upper neck Adam Young MD Liver Ultrasound 07/27/16 0000 Signed Impressions: Service Date/Time: Wednesday, July 27, 2016 12:07 - CONCLUSION: 1. Enlarged , echogenic liver suggesting some fatty infiltration. 2. Limited visualization of the pancreas with nonvisualization of the spleen. 3. Otherwise negative. Ki Carlos MD Objective Remarks GENERAL: Middle-aged white male who is no distress on room air Skin: No lesions dry and warm HEENT: PERRLA, EOMI. No scleral icterus or conjunctival pallor. No lid lag or facial droop. CARDIOVASCULAR: Regular rate and rhythm No obvious murmurs to auscultation. RESPIRATORY decreased breath sounds GASTROINTESTINAL: Abdomen soft, non-tender, nondistended. BS normal. MUSCULOSKELETAL: Extremities without clubbing, cyanosis, or edema. No obvious deformities. NEUROLOGICAL: Awake and Confused. Moving both upper and lower extremities with generalized weakness. Procedures none A/P Problem List: (1) Alcohol withdrawal ICD Code: F10.239 Status: Acute (2) Thrombocytopenia ICD Code: D69.6 Status: Acute (3) Hypomagnesemia ICD Code: E83.42 Status: Acute (4) Hypokalemia ICD Code: E87.6 Status: Acute (5) PNA (pneumonia) ICD Code: J18.9 Status: Acute (6) Tobacco abuse ICD Code: Z72.0 Status: Acute Assessment and Plan 1. Alcohol Withdrawal: +Alcohol Abuse w/ Acute Withdrawal, last drink approx 12pm 07/26/16. Alcohol 30. S/p Ativan and Thiamine in ER. Seizure Precautions, CIWA Protocol, Thiamine/MVT/Folate replacement. Developed septic and metabolic encephalopathy unremarkable MRI of the brain and EEG. Ammonia level within normal limits. Neurochecks. Improving continue Haldol 2. Hypokalemia and hypophosphatemia secondary to alcohol abuse. Replaced with IV potassium phosphate. Repeat BMP and phosphorus as needed 3. Hypomagnesemia: Mg 1.1, s/p replacement. Improved. Recheck and replace as needed. 4. Severe sepsis PNA: Negative urinary Legionella and pneumococcal antigen. Much improved switch to by mouth doxycycline for 4 more days and Levaquin for 2 more days status post aztreonam, IV Zithromax and IV vancomycin. Continue Flagyl till August 13. Wean prednisone. Leukocytosis at this time contributed by steroids. Tobacco cessation 5. Thrombocytopenia: Presumably chronic secondary to alcohol abuse and splenic sequestration. No active bleeding at this time. Monitor closely. Repeat labs in am. Spleen not visualized on sonogram, liver with fatty infiltration. Fibrinogen level within normal limits. Head CT without acute findings. Improving 6. Cardiomyopathy with ejection fraction 30% secondary to sepsis. Trial FELTON inhibitor. Hold beta ashok secondary to recent wheezing. At this time he is not in fluid overloaded no need for further diuresis 7. FEN. Po 8. Hypertension and tachycardia secondary to #1. Worsening tachycardia secondary to infection and agitation. Continue clonidine and telemetry. Increased Haldol and decreased nebs. Improved Hyperglycemia likely secondary to steroids. A1c 6.1. Discontinue sliding scale coverage Deconditioning. Physical therapy DVT Prophylaxis: Improving thrombocytopenia continue Lovenox Consult case management to obtain contact information of family Discharge Planning Patient improving he will need rehabilitation. Case management consult referred to Madi but declined patient. DC when cleared by PT Problem Qualifiers (1) Alcohol withdrawal: Qualified Code: F10.230 - Alcohol withdrawal, uncomplicated (2) PNA (pneumonia): Qualified Code: J18.1 - Pneumonia of right middle lobe due to infectious organism Mirza Stock MD Aug 10, 2016 09:59 Qualified Code: J18.1 - Pneumonia of right middle lobe due to infectious organism Mirza Stock MD Aug 10, 2016 09:59
[2016-08-10] MEDS: ENOXAPARIN SODIUM 40 MG/0.4 ML SYRINGE SQ SCH (12:22)
[2016-08-10] MEDS: DOXYCYCLINE HYCLATE 100 MG CAP PO SCH ×2 (14:01→23:22)
--- NOTE | 2016-08-10 20:08 | HHI.PR ---
Subjective Remarks He feels Much better. No fever. On IV antibiotics .. CXR has improved Off O2. Objective Vital Signs Date Time Temp Pulse Resp B/P Pulse Ox O2 Delivery O2 Flow Rate FiO2 08/10/16 16:03 95.9 75 17 108/55 94 08/10/16 16:00 93 Room Air 08/10/16 12:19 97.2 98 18 101/57 93 08/10/16 12:00 92 Room Air 08/10/16 11:51 94 21 08/10/16 08:20 96.5 70 18 100/56 90 08/10/16 08:00 94 Room Air 08/10/16 05:52 97.2 69 16 115/56 93 08/10/16 00:20 Nasal Cannula 2.00 08/10/16 00:12 97.0 72 16 126/62 96 08/09/16 20:10 97.6 74 17 102/54 96 I/O 08/09/16 08/09/16 08/09/16 08/10/16 08/10/16 08/10/16 07:00 15:00 23:00 07:00 15:00 23:00 Intake Total 240 ml 480 ml 240 ml 120 ml 240 ml Output Total 150 ml 300 ml 400 ml 1050 ml Balance 90 ml 480 ml -60 ml -280 ml -810 ml Intake Oral 240 ml 480 ml 240 ml 120 ml 240 ml Output Urine Total 150 ml 300 ml 400 ml 1050 ml # Voids 5 2 # Bowel Movements 1 1 Result Diagram: 08/07/16 0740 08/09/16 0912 Objective Remarks GENERAL: This thinly built middle-aged white male who is alert ,oriented.. HEENT: Head normocephalic. Pupils are reactive. Sclerae are clear. Tongue is dry. Throat is clear. NECK: Supple. No bruits or thyroid enlargement or lymphadenopathy. CHEST: Equal movements with wheeze in the upper chest.Few Basal crackles heard. CARDIOVASCULAR: Heart sounds are regular S1-S2. No murmur. No S3. ABDOMEN: The abdomen is soft, scaphoid without masses. No organomegaly or tenderness. Bowel sounds are active. EXTREMITIES: No edema. There is muscle wasting of the extremities. No gross motor deficits. NEUROLOGICAL: 1 + reflexes. oriented RECTAL: Exam is deferred. SKIN: Dry and warm. Assessment and Plan Assessment and Plan IMPRESSION 1. Aspiration pneumonia.Resolving 2. COPD with emphysema. 3. Alcohol withdrawal with delirium tremens. 4. Thrombocytopenia. 5. Hypokalemia. Plan : 1. D/C IV antibiotics. 2. Prednisone 10 mg bid. 3. Nebs qid , duoneb. 4. Rehab placement. 5. CXR in am 6. Symbicort 160/4.5 mcg , 2puffs bid 7. Switch to PO meds in am if stable. Mulugeta Masters MD Aug 10, 2016 20:07
[2016-08-11] VITALS (8 sets, daily range): BP systolic 99–133; BP diastolic 59–69; PULSE 67–77; RESP 17–20; TEMP 95.5–98.4; O2SAT 93–98
[2016-08-11] MEDS: cloNIDine HCL 0.1 MG TAB PO SCH ×3 (06:00→22:00)
[2016-08-11] MEDS: metroNIDAZOLE 500 MG TAB PO SCH ×4 (06:25→22:43)
--- NOTE | 2016-08-11 06:39 | RADRPT ---
EXAM DATE/TIME: 08/11/2016 06:16 [facility] COMPARISON: CHEST SINGLE AP, August 08, 2016, 6:29. INDICATIONS : pneumonia MEDICAL HISTORY : None. seizers SURGICAL HISTORY : None. ENCOUNTER: Subsequent ACUITY: 2 weeks PAIN SCORE: 5/10 LOCATION: Bilateral chest FINDINGS: Heart size normal. Improved aeration of the right lung with partial clearing of right mid and basilar airspace disease. The left lung is clear. Osseous structures are intact. CONCLUSION: Improved aeration of the right lung. Ronaldo Joy MD on August 11, 2016 at 6:36 Board Certified Radiologist. This report was verified electronically.
[2016-08-11] MEDS: RESP: IPRATROPIUM 0.5 MG/2.5 ML NEB NEB SCH ×4 (07:44→20:09)
[2016-08-11] MEDS: RESP: ALBUTEROL 0.63 MG/3 ML NEB (SCH) NEB ×4 (07:44→20:09)
[2016-08-11] MEDS: SODIUM CHLORIDE 0.9% FLUSH 5 ML FLUSH FLUSH SCH ×2 (09:00→22:45)
[2016-08-11] MEDS: BUDESONIDE-FORMOTEROL 160/4.5 MCG INHALER INH SCH ×2 (09:00→22:46)
[2016-08-11] MEDS: predniSONE 10 MG TAB PO SCH (09:12)
[2016-08-11] MEDS: POTASSIUM PHOSPHATE MONOBASIC 500 MG TAB PO SCH ×2 (09:12→22:44)
[2016-08-11] MEDS: LACTOBACILLUS ACIDOPHILUS TAB PO SCH ×3 (09:12→17:08)
[2016-08-11] MEDS: DOXYCYCLINE HYCLATE 100 MG CAP PO SCH ×2 (09:12→22:42)
[2016-08-11] MEDS: DOCUSATE SODIUM 50 MG/SENNA 8.6 MG TAB PO SCH ×2 (09:12→21:00)
[2016-08-11] MEDS: THIAMINE HCL 100 MG TAB PO SCH (09:13)
[2016-08-11] MEDS: MAGNESIUM OXIDE 400 MG TAB PO SCH ×2 (09:13→22:43)
[2016-08-11] MEDS: LEVOFLOXACIN 750 MG TAB PO SCH (09:13)
[2016-08-11] MEDS: HALOPERIDOL 1 MG TAB PO SCH ×3 (09:13→17:08)
[2016-08-11] MEDS: LISINOPRIL 5 MG TAB PO SCH (09:18)
[2016-08-11] MEDS ORDERED: PHARMACY ORDERED LAB XX ONE (11:45)
--- NOTE | 2016-08-11 12:02 | HHI.PR ---
Subjective Remarks resting comfortably with no distress. has mild low back pain. otherwise no other complaints. Objective Vitals Vital Signs Date Time Temp Pulse Resp B/P Pulse Ox O2 Delivery O2 Flow Rate FiO2 08/11/16 09:23 96 Room Air 08/11/16 08:00 97.4 71 20 133/69 96 08/11/16 07:44 93 21 08/11/16 03:19 97.6 67 17 110/62 95 08/11/16 00:30 97.6 67 17 117/69 95 08/10/16 21:10 97 Nasal Cannula 08/10/16 20:12 98.0 70 17 99/54 94 08/10/16 16:03 95.9 75 17 108/55 94 08/10/16 16:00 93 Room Air 08/10/16 12:19 97.2 98 18 101/57 93 08/10/16 12:00 92 Room Air I/O 08/10/16 08/10/16 08/10/16 08/11/16 08/11/16 08/11/16 07:00 15:00 23:00 07:00 15:00 23:00 Intake Total 120 ml 240 ml 240 ml Output Total 400 ml 1050 ml 450 ml 150 ml Balance -280 ml -810 ml -210 ml -150 ml Intake Oral 120 ml 240 ml 240 ml Output Urine Total 400 ml 1050 ml 450 ml 150 ml # Bowel Movements 1 Result Diagram: 08/07/16 0740 08/09/16 0912 Imaging Last Impressions Chest X-Ray 08/11/16 0600 Signed Impressions: Service Date/Time: Thursday, August 11, 2016 06:16 - CONCLUSION: Improved aeration of the right lung. Ronaldo Joy MD Brain MRI 08/06/16 0000 Signed Impressions: Service Date/Time: Saturday, August 06, 2016 17:13 - CONCLUSION: Atrophy. No acute intracranial abnormality. Jason Rodrigues MD Chest CT 08/05/16 1610 Signed Impressions: Service Date/Time: Saturday, August 06, 2016 01:32 - CONCLUSION: 1. Fairly diffuse areas of consolidation. The rapid nature of the onset comparing prior chest x-rays suggest progressing inflammatory/infectious process versus edema. 2. Underlying chronic appearing emphysematous change. 3. Bilateral mild pleural effusions being worse on the right. Fermin Stevenson MD Head CT 08/01/16 0000 Signed Impressions: Service Date/Time: Monday, August 01, 2016 14:08 - CONCLUSION: 1. No acute intracranial abnormality. 2. Subcutaneous emphysema in the upper neck Adam Young MD Liver Ultrasound 07/27/16 0000 Signed Impressions: Service Date/Time: Wednesday, July 27, 2016 12:07 - CONCLUSION: 1. Enlarged , echogenic liver suggesting some fatty infiltration. 2. Limited visualization of the pancreas with nonvisualization of the spleen. 3. Otherwise negative. Ki Carlos MD Objective Remarks GENERAL: This is a well-nourished, well-developed patient, in no apparent distress. CARDIOVASCULAR: Regular rate and regular rhythm without murmurs, gallops, or rubs. RESPIRATORY: Clear to auscultation. Breath sounds equal bilaterally. No wheezes , rales, or rhonchi. GASTROINTESTINAL: Abdomen soft, non-tender, nondistended. Normal, active bowel sounds MUSCULOSKELETAL: Extremities without clubbing, cyanosis, or edema. NEURO: Alert & Oriented x4 to person, place, time, situation. Moves all ext x4 Procedures none Medications and IVs Current Medications Thiamine HCl/ Sodium Chloride (Thiamine Inj/NS Inj) 101 ml @ 101 mls/hr ONCE ONCE IV Last administered on 07/26/16 18:23; Start 07/26/16 at 18:30; Stop at 19:29; Status DC Lorazepam 1 mg 1 mg ONCE ONCE IV PUSH Last administered on 07/26/16 18:23; Start 07/26/16 at 18:30; Stop 07/26/16 at 18:31; Status DC Sodium Chloride (NS 1000 ml Inj) 1,000 ml @ 999 mls/hr BOLUS ONCE IV Last administered on 07/26/16 18:24; Start 07/26/16 at 18:30; Stop 07/26/16 at 19:30; Status DC Lorazepam (Ativan Inj) 1 mg ONCE ONCE IV PUSH Last administered on 07/26/16 19 :44; Start 07/26/16 at 19:30; Stop 07/26/16 at 19:31; Status DC Methylprednisolone Sodium Succinate (SoluMEDROL INJ) 60 mg ONCE ONCE IVP Last administered on 07/26/16 19:44; Start 07/26/16 at 19:30; Stop 07/26/16 at 19:31; Status DC Albuterol/ Ipratropium 1 ampule 1 ampule Q15M INH Last administered on 19:49; Start 07/26/16 at 19:30; Stop 07/26/16 at 20:01; Status DC Magnesium Sulfate/ Dextrose (Magnesium Sulfate 1 Gm Premix) 100 ml @ 100 mls/ hr ONCE ONCE IV Last administered on 07/26/16 20:01; Start 07/26/16 at 20:00; Stop 07/26/16 at 20:59; Status DC Potassium Chloride 40 meq 40 meq ONCE ONCE PO Last administered on 07/26/16 20 :01; Start 07/26/16 at 20:00; Stop 07/26/16 at 20:01; Status DC Sodium Chloride 1,000 ml @ 999 mls/hr BOLUS ONCE IV Last administered on 20:27; Start 07/26/16 at 20:15; Stop 07/26/16 at 21:15; Status DC Levofloxacin/ Dextrose 150 ml @ 100 mls/hr ONCE ONCE IV Last administered on 07/26/16 20:55; Start 07/26/16 at 20:15; Stop 07/26/16 at 21:44; Status DC Sodium Chloride (NS 1000 ml Inj) 1,000 ml @ 999 mls/hr BOLUS ONCE IV Last administered on 07/26/16 20:48; Start 07/26/16 at 20:30; Stop 07/26/16 at 21:30; Status DC Lorazepam 2 mg 2 mg ONCE ONCE IV PUSH Last administered on 07/26/16 20:55; Start 07/26/16 at 20:30; Stop 07/26/16 at 20:48; Status DC Multivitamins 10 ml/Folic Acid 1 mg/Sodium Chloride 510.2 ml @ 125 mls/hr Q24H IV Last administered on 07/30/16 20:06; Start 07/26/16 at 22:00; Stop 07/31/16 at 21:59; Status DC Thiamine HCl/ Sodium Chloride (Thiamine Inj/NS Inj) 101 ml @ 100 mls/hr Q24H IV Last administered on 07/29/16 22:46; Start 07/27/16 at 21:00; Stop at 20:59; Status DC Thiamine HCl (Vitamin B1) 100 mg DAILY PO Last administered on 08/03/16 09:14 ; Start 07/30/16 at 09:00; Stop 08/04/16 at 08:12; Status DC Flumazenil (Romazicon Inj) 0.2 mg Q1M PRN IV PUSH SEE LABEL COMMENTS; Start 07/26/16 at 20:30 Lorazepam (Ativan) 1 mg Q4H PRN PO CIWA 8 - 10 Last administered on 08/04/16 04:35; Start 07/26/16 at 20:30; Stop 08/04/16 at 08:12; Status DC Lorazepam (Ativan Inj) 1 mg Q4H PRN IV PUSH CIWA 8 - 10 Last administered on 15:45; Start 07/26/16 at 20:30 Lorazepam (Ativan) 2 mg Q2H PRN PO CIWA 11-14; Start 07/26/16 at 20:30; Stop at 08:12; Status DC Lorazepam (Ativan Inj) 2 mg Q2H PRN IV PUSH CIWA 11-14 Last administered on 01:46; Start 07/26/16 at 20:30 Lorazepam (Ativan Inj) 2 mg Q1H PRN IV PUSH CIWA 15-20 Last administered on 14:43; Start 07/26/16 at 20:30 Lorazepam (Ativan Inj) 2 mg Q15M PRN IV PUSH CIWA > 20 Last administered on 18:08; Start 07/26/16 at 20:30 Haloperidol Lactate (Haldol Inj) 2 mg Q15M PRN IM SEE LABEL COMMENTS Last administered on 07/29/16 11:19; Start 07/26/16 at 20:30 Albuterol/ Ipratropium 1 ampule 1 ampule Q4HR NEB PRN NEB SOB/WHEEZING Last administered on 08/04/16 23:56; Start 07/26/16 at 20:30; Stop 08/06/16 at 10:19 ; Status DC Levofloxacin/ Dextrose 150 ml @ 100 mls/hr Q24H IV Last administered on 21:09; Start 07/27/16 at 21:00; Stop 07/29/16 at 08:42; Status DC Sodium Chloride (NS 1000 ml Inj) 1,000 ml @ 100 mls/hr Q10H IV Last administered on 07/27/16 07:00; Start 07/26/16 at 21:00; Stop 07/27/16 at 10:37 ; Status DC IV Flush (NS Flush) 2 ml UNSCH PRN FLUSH FLUSH AFTER USING IV ACCESS Last administered on 08/05/16 06:09; Start 07/26/16 at 20:30 IV Flush (NS Flush) 2 ml BID FLUSH Last administered on 08/11/16 09:00; Start 07/26/16 at 21:00 Ondansetron HCl (Zofran Inj) 4 mg Q6H PRN IVP NAUSEA OR VOMITING Last administered on 08/03/16 00:16; Start 07/26/16 at 20:30 Bisacodyl (Dulcolax Supp) 10 mg DAILY PRN MI CONSTIPATION; Start 07/26/16 at 20: 30 Acetaminophen (Tylenol) 650 mg Q6H PRN PO FEVER/PAIN SCALE 1 TO 2 Last administered on 08/01/16 20:31; Start 07/26/16 at 20:30; Stop 08/04/16 at 08:12 ; Status DC Oxycodone HCl (Roxicodone) 10 mg Q4H PRN PO PAIN SCALE 6 TO 10 Last administered on 08/02/16 14:44; Start 07/26/16 at 20:30; Stop 08/04/16 at 08:12 ; Status DC Oxycodone HCl (Roxicodone) 5 mg Q4H PRN PO PAIN SCALE 3 TO 5 Last administered on 08/02/16 16:47; Start 07/26/16 at 20:30; Stop 08/04/16 at 08:12; Status DC Lorazepam (Ativan Inj) 1 mg Q6H PRN IV PUSH sz; Start 07/27/16 at 12:00 Magnesium Oxide 400 mg 400 mg Q12HR PO Last administered on 08/03/16 21:06; Start 07/27/16 at 12:15; Stop 08/04/16 at 08:12; Status DC Magnesium Sulfate/ Dextrose (Magnesium Sulfate 1 Gm Premix) 100 ml @ 100 mls/ hr ONCE ONCE IV Last administered on 07/27/16 13:01; Start 07/27/16 at 12:15 ; Stop 07/27/16 at 13:14; Status DC Potassium Chloride (KCl) 20 meq ONCE ONCE PO Last administered on 07/27/16 13 :00; Start 07/27/16 at 12:15; Stop 07/27/16 at 12:27; Status DC Potassium Chloride (KCl) 30 meq ONCE ONCE PO Last administered on 07/27/16 13 :00; Start 07/27/16 at 12:15; Stop 07/27/16 at 12:27; Status DC Chlordiazepoxide 50 mg 50 mg Q8H PO Last administered on 07/27/16 20:27; Start 07/27/16 at 20:00; Stop 07/28/16 at 08:03; Status DC Dexmedetomidine HCl 50 ml @ 0 mls/hr TITRATE IV Last administered on 08/01/16 04:23; Start 07/27/16 at 21:00; Stop 08/03/16 at 21:25; Status DC Propofol (Diprivan 1000 Mg/100ml Inj) 100 ml @ As Directed STK-MED ONCE .ROUTE ; Start 07/27/16 at 21:04; Stop 07/27/16 at 21:05; Status DC Miscellaneous Information Patient in critical care unit? Ass... [id number] ; Start 07/27/16 at 22:30 Chlorhexidine Gluconate (Chlorhexidine 2% Cloth) 3 pack DAILY@04 TOP Last administered on 08/01/16 04:24; Start 07/28/16 at 04:00; Stop 08/01/16 at 04:01 ; Status DC Chlorhexidine Gluconate 3 pack 3 pack UNSCH PRN TOP HYGIENIC CARE; Start at 22:30; Stop 08/01/16 at 22:25; Status DC Potassium Chloride 100 ml @ 50 mls/hr Q2H PRN IV For Potassium 2.8 - 3.2 mEq/L ; Start 07/28/16 at 08:00; Stop 08/03/16 at 22:14; Status DC Potassium Chloride (KCl 20 Meq Premix Inj) 100 ml @ 50 mls/hr Q2H PRN IV For Potassium 2.8 - 3.2 mEq/L Last administered on 08/03/16t 01:41; Start 07/28/16 at 08:00; Stop 08/03/16 at 22:14; Status DC Potassium Chloride 40 meq 40 meq UNSCH PRN PO/TUBE For Potassium 3.3 - 3.5 mEq/ L; Start 07/28/16 at 08:00; Stop 08/03/16 at 22:14; Status DC Potassium Chloride 100 ml @ 25 mls/hr UNSCH PRN IV For Potassium 3.3 - 3.5 mEq /L; Start 07/28/16 at 08:00; Stop 08/03/16 at 22:14; Status DC Potassium Chloride 100 ml @ 50 mls/hr Q2H PRN IV For Potassium 3.3 - 3.5 mEq/L ; Start 07/28/16 at 08:00; Stop 08/03/16 at 22:14; Status DC Magnesium Sulfate/ Sodium Chloride (Magnesium Sulfate Inj/NS Inj) 100 ml @ 50 mls/hr UNSCH PRN IV For Magnesium 0.9 - 1.1 mg/dL; Start 07/28/16 at 08:00; Stop 08/03/16 at 22:14; Status DC Magnesium Oxide 800 mg 800 mg UNSCH PRN PO For Magnesium 1.2 - 1.6 mg/dL; Start 07/28/16 at 08:00; Stop 08/03/16 at 22:14; Status DC Magnesium Sulfate/ Sodium Chloride (Magnesium Sulfate Inj/NS Inj) 100 ml @ 50 mls/hr UNSCH PRN IV For Magnesium 1.2 - 1.6 mg/dL; Start 07/28/16 at 08:00; Stop 08/03/16 at 22:14; Status DC Potassium Phosphate 2000 mg 2,000 mg Q4H PRN PO For Phosphorus < 2.5 mg/dL; Start 07/28/16 at 08:00; Stop 08/03/16 at 22:14; Status DC Sodium Phosphate/ Sodium Chloride (Sodium Phosphate Inj/NS 250 ml Inj) 250 ml @ 42 mls/hr UNSCH PRN IV For Phosphorus < 2.5 mg/dL Last administered on t 09:03; Start 07/28/16 at 08:00; Stop 08/03/16 at 22:14; Status DC Potassium Chloride (KCl 40 Meq/30 ml Liq) 40 meq UNSCH PRN PO/TUBE SEE LABEL COMMENTS; Start 07/28/16 at 08:00; Stop 08/03/16 at 22:14; Status DC Potassium Phosphate 2000 mg 2,000 mg UNSCH PRN PO/TUBE SEE LABEL COMMENTS; Start 07/28/16 at 08:00; Stop 08/03/16 at 22:14; Status DC Potassium Phosphate 30 mmol/ Sodium Chloride 260 ml @ 42 mls/hr UNSCH PRN IV SEE LABEL COMMENTS Last administered on 08/03/16 02:57; Start 07/28/16 at 08:00 ; Stop 08/03/16 at 22:14; Status DC Sodium Chloride 250 ml @ 15 mls/hr ONCE ONCE IV ; Start 07/28/16 at 11:00; Stop 07/29/16 at 03:39; Status DC Potassium Chloride/Sodium Chloride 1,000 ml @ 84 mls/hr [id number] IV Last administered on 07/30/16 05:08; Start 07/28/16 at 15:15; Stop 07/30/16 at 07:28 ; Status DC Azithromycin 500 mg/Sodium Chloride 250 ml @ 250 mls/hr Q24H IV Last administered on 08/04/16 10:02; Start 07/29/16 at 09:00; Stop 08/04/16 at 14:53 ; Status DC Aztreonam/Sodium Chloride (Azactam Inj/NS Inj) 100 ml @ 200 mls/hr Q8H IV Last administered on 08/04/16 12:24; Start 07/29/16 at 10:00; Stop 08/04/16 at 14:53; Status DC Dextrose (D50w (Vial) Inj) 25 ml UNSCH PRN IV PUSH HYPOGLYCEMIA-SEE COMMENTS; Start 07/29/16 at 08:45 Glucagon 1 mg 1 mg UNSCH PRN OTHER HYPOGLYCEMIA-SEE COMMENTS; Start 07/29/16 at 08:45 Potassium Chloride/Dextrose/ Sod Cl 1,000 ml @ 84 mls/hr [id number] IV Last administered on 08/02/16 02:19; Start 07/30/16 at 07:30; Stop 08/02/16 at 06:25 ; Status DC Metronidazole (Flagyl 500 Mg Inj) 100 ml @ 100 mls/hr Q8HR IV Last administered on 08/04/16 13:58; Start 07/31/16 at 06:15; Stop 08/04/16 at 14:55 ; Status DC Albuterol/ Ipratropium (Duoneb Neb) 1 ampule QID NEB NEB Last administered on 08/05/16 08:24; Start 07/31/16 at 08:00; Stop 08/05/16 at 10:50; Status DC Methylprednisolone Sodium Succinate (SoluMEDROL INJ) 40 mg Q8HR IV PUSH Last administered on 08/03/16 13:06; Start 08/01/16 at 14:00; Stop 08/03/16 at 15:58 ; Status DC Docusate Sodium (Colace) 100 mg BID PRN PO CONSTIPATION; Start 08/01/16 at 17: 30; Stop 08/04/16 at 08:12; Status DC Senna/Docusate Sodium (Clarisa-Colace) 2 tab BID PO Last administered on 09:09; Start 08/01/16 at 21:00; Stop 08/04/16 at 08:12; Status DC Lactulose (Lactulose Liq) 30 ml TID PRN PO CONSTIPATION Last administered on 09:10; Start 08/01/16 at 17:30; Stop 08/04/16 at 08:12; Status DC Magnesium Hydroxide (Milk Of Magnesia Liq) 30 ml Q6H PRN PO CONSTIPATION; Start 08/01/16 at 17:30; Stop 08/04/16 at 08:12; Status DC Clonidine (Catapres) 0.1 mg Q12HR PO Last administered on 08/03/16 21:06; Start 08/02/16 at 09:45; Stop 08/04/16 at 08:12; Status DC Methylprednisolone Sodium Succinate (SoluMEDROL INJ) 40 mg BID IV PUSH Last administered on 08/04/16 10:01; Start 08/03/16 at 21:00; Stop 08/04/16 at 10:05 ; Status DC Acetaminophen (Tylenol) 650 mg Q6H PRN NG FEVER/PAIN SCALE 1 TO 2; Start at 08:30; Stop 08/05/16 at 18:02; Status DC Clonidine (Catapres) 0.1 mg Q12HR PO/NG Last administered on 08/04/16 10:01; Start 08/04/16 at 09:00; Stop 08/04/16 at 14:55; Status DC Docusate Sodium (Colace) 100 mg BID PRN NG CONSTIPATION; Start 08/04/16 at 08: 15; Stop 08/05/16 at 18:03; Status DC Senna/Docusate Sodium (Clarisa-Colace) 2 tab BID NG ; Start 08/04/16 at 09:00; Stop 08/05/16 at 18:04; Status DC Lactulose (Lactulose Liq) 30 ml TID PRN NG CONSTIPATION; Start 08/04/16 at 08: 15; Stop 08/05/16 at 18:04; Status DC Lorazepam (Ativan) 1 mg Q4H PRN NG CIWA 8 - 10 Last administered on 08/05/16 03:40; Start 08/04/16 at 08:30; Stop 08/05/16 at 18:06; Status DC Lorazepam (Ativan) 2 mg Q2H PRN NG CIWA 11-14; Start 08/04/16 at 08:30; Stop at 18:06; Status DC Magnesium Hydroxide (Milk Of Magnesia Liq) 30 ml Q6H PRN NG CONSTIPATION; Start 08/04/16 at 11:30; Stop 08/05/16 at 18:07; Status DC Magnesium Oxide (Mag-Ox) 400 mg Q12HR NG Last administered on 08/05/16 09:00; Start 08/04/16 at 09:00; Stop 08/05/16 at 18:07; Status DC Oxycodone HCl (Roxicodone) 5 mg Q4H PRN NG PAIN SCALE 3 TO 5 Last administered on 08/04/16 21:13; Start 08/04/16 at 08:30; Stop 08/05/16 at 18:07; Status DC Oxycodone HCl (Roxicodone) 10 mg Q4H PRN NG PAIN SCALE 6 TO 10; Start 08/04/16 at 08:30; Stop 08/05/16 at 18:07; Status DC Thiamine HCl (Vitamin B1) 100 mg DAILY NG Last administered on 08/05/16 09:00 ; Start 08/04/16 at 09:00; Stop 08/05/16 at 18:08; Status DC Lactobacillus Acidophilus (Lactinex) 1 tab TID NG Last administered on 09:07; Start 08/04/16 at 09:00; Stop 08/05/16 at 18:08; Status DC Prednisone (Deltasone) 40 mg DAILY PO Last administered on 08/05/16 09:07; Start 08/05/16 at 09:00; Stop 08/05/16 at 16:14; Status DC Insulin Aspart (NovoLOG SUPPLEMENTAL SCALE) 1 ACHS SLIDING SCALE SQ Last administered on 08/09/16 16:36; Start 08/04/16 at 11:00; Stop 08/10/16 at 05:43 ; Status DC Clonidine 0.1 mg 0.1 mg Q8HR PO/NG Last administered on 08/05/16 06:06; Start 08/04/16 at 22:00; Stop 08/05/16 at 18:03; Status DC Potassium Phosphate/Sodium Chloride (Potassium Phosphate Inj/NS 250 ml Inj) 260 ml @ 43.333 mls/ hr ONCE ONCE IV Last administered on 08/04/16 17:48; Start 08/04/16 at 16:00; Stop 08/04/16 at 21:59; Status DC Potassium Phosphate (K-Phos) 1,000 mg Q12HR PO/NG Last administered on 09:07; Start 08/04/16 at 15:00; Stop 08/05/16 at 18:09; Status DC Levofloxacin (Levaquin) 750 mg DAILY NG Last administered on 08/05/16 09:07; Start 08/05/16 at 09:00; Stop 08/05/16 at 16:14; Status DC Metronidazole (Flagyl) 500 mg Q6HR NG Last administered on 08/05/16 11:42; Start 08/04/16 at 18:00; Stop 08/05/16 at 18:09; Status DC Haloperidol Lactate (Haldol Inj) 2 mg Q8H PRN IM severe agitation Last administered on 08/06/16 11:46; Start 08/04/16 at 15:00 Enoxaparin Sodium (Lovenox Inj) 40 mg Q24H SQ Last administered on 08/10/16 12 :22; Start 08/04/16 at 15:00 Furosemide (Lasix Inj) 40 mg ONCE ONCE IV PUSH Last administered on 08/05/16 06:05; Start 08/05/16 at 05:45; Stop 08/05/16 at 05:49; Status DC Potassium Chloride (KCl 40 Meq/30 ml Liq) 40 meq ONCE ONCE PO/NG Last administered on 08/05/16 06:05; Start 08/05/16 at 05:45; Stop 08/05/16 at 05:49 ; Status DC Albuterol/ Ipratropium (Duoneb Neb) 1 ampule Q4HR NEB NEB Last administered on 08/06/16 07:56; Start 08/05/16 at 12:00; Stop 08/06/16 at 10:19; Status DC Bumetanide 1 mg 1 mg ONCE ONCE IV PUSH Last administered on 08/05/16 11:41; Start 08/05/16 at 11:00; Stop 08/05/16 at 11:01; Status DC Vancomycin HCl/ Sodium Chloride (Vancomycin Inj/ NS 250 ml Inj) 250 ml @ 250 mls/hr ONCE ONCE IV Last administered on 08/05/16 11:42; Start 08/05/16 at 11 :00; Stop 08/05/16 at 11:59; Status DC Haloperidol 1 mg 1 mg BID PO Last administered on 08/05/16 20:39; Start at 21:00; Stop 08/06/16 at 10:19; Status DC Potassium Chloride/Dextrose/ Sod Cl (D5-1/2 NS + KCl 10 Meq Inj) 1,000 ml @ 84 mls/hr [id number] IV Last administered on 08/05/16 19:19; Start 08/05/16 at 17:00 ; Stop 08/06/16 at 03:53; Status DC Methylprednisolone Sodium Succinate 40 mg 40 mg Q12HR IV PUSH Last administered on 08/07/16 09:44; Start 08/05/16 at 21:00; Stop 08/07/16 at 15:11 ; Status DC Levofloxacin/ Dextrose (Levaquin 500 Mg Premix Inj) 100 ml @ 100 mls/hr Q24H IV Last administered on 08/10/16 09:02; Start 08/06/16 at 09:00; Stop at 13:38; Status DC Acetaminophen (Tylenol) 650 mg Q6H PRN PO FEVER/PAIN SCALE 1 TO 2; Start at 18:15 Clonidine (Catapres) 0.1 mg Q8HR PO Last administered on 08/10/16 06:50; Start 08/05/16 at 22:00 Docusate Sodium (Colace) 100 mg BID PRN PO CONSTIPATION; Start 08/05/16 at 18: 15 Senna/Docusate Sodium (Clarisa-Colace) 2 tab BID PO Last administered on 09:12; Start 08/05/16 at 21:00 Lactulose (Lactulose Liq) 30 ml TID PRN PO CONSTIPATION; Start 08/05/16 at 18: 15 Lorazepam (Ativan) 1 mg Q4H PRN PO CIWA 8 - 10 Last administered on 08/06/16 06:58; Start 08/05/16 at 18:15 Lorazepam (Ativan) 2 mg Q2H PRN PO CIWA 11-14; Start 08/05/16 at 18:15 Magnesium Hydroxide (Milk Of Magnesia Liq) 30 ml Q6H PRN PO CONSTIPATION; Start 08/05/16 at 18:15 Magnesium Oxide (Mag-Ox) 400 mg Q12HR PO Last administered on 08/11/16 09:13; Start 08/05/16 at 21:00 Oxycodone HCl (Roxicodone) 5 mg Q4H PRN PO PAIN SCALE 3 TO 5 Last administered on 08/06/16 08:15; Start 08/05/16 at 18:15 Oxycodone HCl (Roxicodone) 10 mg Q4H PRN PO PAIN SCALE 6 TO 10 Last administered on 08/11/16 06:26; Start 08/05/16 at 18:15 Thiamine HCl (Vitamin B1) 100 mg DAILY PO Last administered on 08/11/16 09:13 ; Start 08/06/16 at 09:00 Lactobacillus Acidophilus (Lactinex) 1 tab TID PO Last administered on 09:12; Start 08/06/16 at 09:00 Potassium Phosphate (K-Phos) 1,000 mg Q12HR PO Last administered on 08/11/16 09:12; Start 08/05/16 at 21:00 Metronidazole (Flagyl) 500 mg Q6HR PO Last administered on 08/11/16 06:25; Start 08/06/16 at 00:00; Stop 08/13/16 at 23:59 Bumetanide 1 mg 1 mg ONCE ONCE IV PUSH Last administered on 08/06/16 04:02; Start 08/06/16 at 04:00; Stop 08/06/16 at 04:01; Status DC Pharmacy Profile Note 0 ml @ 0 mls/hr UNSCH OTHER ; Start 08/06/16 at 05:00; Stop 08/10/16 at 13:39; Status DC Vancomycin HCl/ Sodium Chloride (Vancomycin Inj/ NS 250 ml Inj) 250 ml @ 250 mls/hr ONCE ONCE IV Last administered on 08/06/16 07:00; Start 08/06/16 at 06 :00; Stop 08/06/16 at 06:59; Status DC Haloperidol (Haldol) 2 mg TID PO Last administered on 08/11/16 09:13; Start at 13:00 Albuterol Sulfate (Albuterol Neb) 0.63 mg QID NEB NEB Last administered on 11:31; Start 08/06/16 at 12:00 Albuterol Sulfate (Albuterol Neb) 0.63 mg Q4HR NEB PRN NEB sob; Start 08/06/16 at 10:15 Ipratropium Trufant 0.5 mg 0.5 mg QID NEB NEB Last administered on 08/11/16 11:31; Start 08/06/16 at 12:00 Vancomycin HCl 1000 mg/Sodium Chloride 250 ml @ 250 mls/hr Q12H IV Last administered on 08/08/16 06:50; Start 08/06/16 at 18:00; Stop 08/08/16 at 09:16 ; Status DC Potassium Chloride/Sodium Chloride (NS + KCl 20 Meq Inj) 1,000 ml @ 50 mls/hr Q20H PRN IV po < 50% Last administered on 08/06/16 14:55; Start 08/06/16 at 10: 15; Stop 08/07/16 at 15:11; Status DC Miscellaneous Information SPECIFIC LAB TO BE DRAWN:VANCOMYCIN TROUGH DATE TO... ONCE ONCE XX Last administered on 08/08/16 06:45; Start 08/08/16 at 05:45; Stop 08/08/16 at 05:46; Status DC Potassium Chloride (KCl) 50 meq ONCE ONCE PO Last administered on 08/06/16 13 :09; Start 08/06/16 at 10:30; Stop 08/06/16 at 10:31; Status DC Prednisone (Deltasone) 40 mg DAILY PO Last administered on 08/08/16 09:37; Start 08/08/16 at 09:00; Stop 08/08/16 at 18:12; Status DC Lisinopril (Prinivil) 2.5 mg DAILY PO Last administered on 08/11/16 09:18; Start 08/08/16 at 09:00 Budesonide/ Formoterol Fumarate 1 puff 1 puff Q12HR INH Last administered on 09:00; Start 08/07/16 at 21:00 Vancomycin HCl/ Sodium Chloride (Vancomycin Inj/ NS 250 ml Inj) 250 ml @ 250 mls/hr Q8H IV Last administered on 08/09/16 12:36; Start 08/08/16 at 12:00; Stop 08/09/16 at 13:07; Status DC Miscellaneous Information SPECIFIC LAB TO BE DRAWN:VANCOMYCIN TROUGH DATE TO... ONCE ONCE XX Last administered on 08/09/16 11:45; Start 08/09/16 at 11:45; Stop 08/09/16 at 11:46; Status DC Prednisone 10 mg 10 mg BID PO Last administered on 08/11/16 09:12; Start 08/08 at 21:00 Vancomycin HCl/ Sodium Chloride (Vancomycin Inj/ NS 250 ml Inj) 262.5 ml @ 250 mls/hr Q8H IV Last administered on 08/10/16 12:21; Start 08/09/16 at 20:00; Stop 08/10/16 at 13:40; Status DC Miscellaneous Information SPECIFIC LAB TO BE DRAWN:VANCOMYCIN TROUGH DATE TO... ONCE ONCE XX ; Start 08/11/16 at 11:45; Stop 08/11/16 at 11:46; Status DC Doxycycline Hyclate (Vibramycin) 100 mg BID PO Last administered on 08/11/16 09:12; Start 08/10/16 at 13:45; Stop 08/15/16 at 13:44 Levofloxacin (Levaquin) 750 mg DAILY PO Last administered on 08/11/16 09:13; Start 08/11/16 at 09:00; Stop 08/13/16 at 08:59 A/P Assessment and Plan A/P 1. Alcohol Withdrawal: Improving continue Haldol 2. Hypokalemia and hypophosphatemia secondary to alcohol abuse. Replaced. Repeat BMP and phosphorus as needed 3. Hypomagnesemia: Improved. Recheck and replace as needed. 4. Severe sepsis PNA: Negative urinary Legionella and pneumococcal antigen. Much improved switch to by mouth doxycycline and Levaquin. Continue Flagyl till August 13. Wean prednisone. 5. Thrombocytopenia: Presumably chronic secondary to alcohol abuse and splenic sequestration. No active bleeding at this time. Monitor. Spleen not visualized on sonogram, liver with fatty infiltration. evaluated by hematology. 6. Cardiomyopathy with ejection fraction 30% secondary to sepsis. Trial FELTON inhibitor. Hold beta ashok secondary to recent wheezing. At this time he is not in fluid overloaded no need for further diuresis 7. FEN. Po 8. Hypertension and tachycardia secondary to #1. Worsening tachycardia secondary to infection and agitation. Continue clonidine and telemetry.continue Haldol and decreased nebs. Improved Hyperglycemia likely secondary to steroids. A1c 6.1. Discontinued sliding scale coverage Deconditioning. Physical therapy DVT Prophylaxis: Improving thrombocytopenia continue Lovenox Consulted case management to obtain contact information of family Discharge Planning dc planning; SNF vs home when stable with PT. Jyotsna Crawford MD Aug 11, 2016 12:02
[2016-08-11] MEDS: ENOXAPARIN SODIUM 40 MG/0.4 ML SYRINGE SQ SCH (15:00)
--- NOTE | 2016-08-11 18:27 | HHI.PR ---
Subjective Remarks Doing well. No fever. Off IV antibiotics . Walks in room Off O2. Objective Vital Signs Date Time Temp Pulse Resp B/P Pulse Ox O2 Delivery O2 Flow Rate FiO2 08/11/16 16:00 95.5 74 17 99/59 98 08/11/16 12:00 98.4 77 20 111/62 95 08/11/16 09:23 96 Room Air 08/11/16 08:00 97.4 71 20 133/69 96 08/11/16 07:44 93 21 08/11/16 03:19 97.6 67 17 110/62 95 08/11/16 00:30 97.6 67 17 117/69 95 08/10/16 21:10 97 Nasal Cannula 08/10/16 20:12 98.0 70 17 99/54 94 I/O 08/10/16 08/10/16 08/10/16 08/11/16 08/11/16 08/11/16 07:00 15:00 23:00 07:00 15:00 23:00 Intake Total 120 ml 240 ml 240 ml 600 ml Output Total 400 ml 1050 ml 450 ml 150 ml Balance -280 ml -810 ml -210 ml -150 ml 600 ml Intake Oral 120 ml 240 ml 240 ml 600 ml Output Urine Total 400 ml 1050 ml 450 ml 150 ml # Voids 3 # Bowel Movements 1 2 Result Diagram: 08/07/16 0740 08/09/16 0912 Objective Remarks GENERAL: This thinly built middle-aged white male who is alert ,oriented.. HEENT: Head normocephalic. Pupils are reactive. Sclerae are clear. Tongue is dry. Throat is clear. NECK: Supple. No bruits or thyroid enlargement or lymphadenopathy. CHEST: Equal movements with wheeze in the upper chest. CARDIOVASCULAR: Heart sounds are regular S1-S2. No murmur. No S3. ABDOMEN: The abdomen is soft, scaphoid without masses. No organomegaly or tenderness. Bowel sounds are active. EXTREMITIES: No edema. There is muscle wasting of the extremities. No gross motor deficits. NEUROLOGICAL: 1 + reflexes. oriented RECTAL: Exam is deferred. SKIN: Dry and warm. Assessment and Plan Assessment and Plan IMPRESSION 1. Aspiration pneumonia.Resolving 2. COPD with emphysema. 3. Alcohol withdrawal with delirium tremens. 4. Thrombocytopenia. 5. Hypokalemia. Plan : 1. IS at bedside q3h 2. Prednisone 10 mg daily.X5 3. Nebs qid , duoneb. 4. Rehab placement. 5. Labs in am 6. Symbicort 160/4.5 mcg , 2puffs bid Mulugeta Masters MD Aug 11, 2016 18:27
[2016-08-12] VITALS (7 sets, daily range): BP systolic 92–109; BP diastolic 53–69; PULSE 70–79; RESP 16–18; TEMP 95.9–97.9; O2SAT 94–98
[2016-08-12] MEDS: cloNIDine HCL 0.1 MG TAB PO SCH ×3 (06:00→22:00)
[2016-08-12] MEDS: metroNIDAZOLE 500 MG TAB PO SCH ×3 (06:48→17:36)
[2016-08-12] MEDS: RESP: ALBUTEROL 0.63 MG/3 ML NEB (SCH) NEB ×3 (07:23→15:31)
[2016-08-12] MEDS: RESP: IPRATROPIUM 0.5 MG/2.5 ML NEB NEB SCH ×4 (07:23→20:16)
[2016-08-12] MEDS: THIAMINE HCL 100 MG TAB PO SCH (08:14)
[2016-08-12] MEDS: LEVOFLOXACIN 750 MG TAB PO SCH (08:14)
[2016-08-12] MEDS: BUDESONIDE-FORMOTEROL 160/4.5 MCG INHALER INH SCH ×2 (08:15→22:17)
[2016-08-12] MEDS: HALOPERIDOL 1 MG TAB PO SCH ×3 (08:15→17:36)
[2016-08-12] MEDS: MAGNESIUM OXIDE 400 MG TAB PO SCH ×2 (08:15→22:15)
[2016-08-12] MEDS: LACTOBACILLUS ACIDOPHILUS TAB PO SCH ×3 (08:15→17:35)
[2016-08-12] MEDS: DOXYCYCLINE HYCLATE 100 MG CAP PO SCH ×2 (08:15→22:15)
[2016-08-12] MEDS: POTASSIUM PHOSPHATE MONOBASIC 500 MG TAB PO SCH ×2 (08:15→22:15)
[2016-08-12] MEDS: LISINOPRIL 5 MG TAB PO SCH (08:15)
[2016-08-12] MEDS: SODIUM CHLORIDE 0.9% FLUSH 5 ML FLUSH FLUSH SCH ×2 (08:15→22:17)
[2016-08-12] MEDS: DOCUSATE SODIUM 50 MG/SENNA 8.6 MG TAB PO SCH ×2 (08:22→21:00)
--- NOTE | 2016-08-12 13:06 | HHI.PR ---
Subjective Remarks f/u for alcohol withdrawal and aspiration PNA patient has no complaints. Denied any SOB, cough or any concerns. d/w nurse at bedside stated patient will not participate with speech therapist. I asked patient and he stated he can swallow and has no problem. When I explained why we have speech therapist evaluated him he stated okay he will work with them, Objective Vitals Vital Signs Date Time Temp Pulse Resp B/P Pulse Ox O2 Delivery O2 Flow Rate FiO2 08/12/16 12:00 96.3 76 16 104/62 94 08/12/16 08:15 95 Room Air 08/12/16 08:00 96.4 79 16 109/69 95 08/12/16 07:23 96 21 08/12/16 04:33 97.9 70 18 105/56 94 08/12/16 00:26 96.6 72 18 104/60 95 08/11/16 20:54 96.0 72 18 101/61 93 08/11/16 20:10 98 Nasal Cannula 08/11/16 16:00 95.5 74 17 99/59 98 I/O 08/11/16 08/11/16 08/11/16 08/12/16 08/12/16 08/12/16 07:00 15:00 23:00 07:00 15:00 23:00 Intake Total 600 ml 360 ml 240 ml Output Total 150 ml 2 ml Balance -150 ml 600 ml 360 ml 238 ml Intake Oral 600 ml 360 ml 240 ml Output Urine Total 150 ml 2 ml # Voids 3 2 # Bowel Movements 2 Result Diagram: 08/09/16 0912 Objective Remarks Gen NAD Resp CTA B/L CV RRR. no r/m/g Abd soft NDNT Neuro AAO X 3. no tremors noted. Procedures none Medications and IVs Current Medications Thiamine HCl/ Sodium Chloride (Thiamine Inj/NS Inj) 101 ml @ 101 mls/hr ONCE ONCE IV Last administered on 07/26/16 18:23; Start 07/26/16 at 18:30; Stop at 19:29; Status DC Lorazepam 1 mg 1 mg ONCE ONCE IV PUSH Last administered on 07/26/16 18:23; Start 07/26/16 at 18:30; Stop 07/26/16 at 18:31; Status DC Sodium Chloride (NS 1000 ml Inj) 1,000 ml @ 999 mls/hr BOLUS ONCE IV Last administered on 07/26/16 18:24; Start 07/26/16 at 18:30; Stop 07/26/16 at 19:30; Status DC Lorazepam (Ativan Inj) 1 mg ONCE ONCE IV PUSH Last administered on 07/26/16 19 :44; Start 07/26/16 at 19:30; Stop 07/26/16 at 19:31; Status DC Methylprednisolone Sodium Succinate (SoluMEDROL INJ) 60 mg ONCE ONCE IVP Last administered on 07/26/16 19:44; Start 07/26/16 at 19:30; Stop 07/26/16 at 19:31; Status DC Albuterol/ Ipratropium 1 ampule 1 ampule Q15M INH Last administered on 19:49; Start 07/26/16 at 19:30; Stop 07/26/16 at 20:01; Status DC Magnesium Sulfate/ Dextrose (Magnesium Sulfate 1 Gm Premix) 100 ml @ 100 mls/ hr ONCE ONCE IV Last administered on 07/26/16 20:01; Start 07/26/16 at 20:00; Stop 07/26/16 at 20:59; Status DC Potassium Chloride 40 meq 40 meq ONCE ONCE PO Last administered on 07/26/16 20 :01; Start 07/26/16 at 20:00; Stop 07/26/16 at 20:01; Status DC Sodium Chloride 1,000 ml @ 999 mls/hr BOLUS ONCE IV Last administered on 20:27; Start 07/26/16 at 20:15; Stop 07/26/16 at 21:15; Status DC Levofloxacin/ Dextrose 150 ml @ 100 mls/hr ONCE ONCE IV Last administered on 07/26/16 20:55; Start 07/26/16 at 20:15; Stop 07/26/16 at 21:44; Status DC Sodium Chloride (NS 1000 ml Inj) 1,000 ml @ 999 mls/hr BOLUS ONCE IV Last administered on 07/26/16 20:48; Start 07/26/16 at 20:30; Stop 07/26/16 at 21:30; Status DC Lorazepam 2 mg 2 mg ONCE ONCE IV PUSH Last administered on 07/26/16 20:55; Start 07/26/16 at 20:30; Stop 07/26/16 at 20:48; Status DC Multivitamins 10 ml/Folic Acid 1 mg/Sodium Chloride 510.2 ml @ 125 mls/hr Q24H IV Last administered on 07/30/16 20:06; Start 07/26/16 at 22:00; Stop 07/31/16 at 21:59; Status DC Thiamine HCl/ Sodium Chloride (Thiamine Inj/NS Inj) 101 ml @ 100 mls/hr Q24H IV Last administered on 07/29/16 22:46; Start 07/27/16 at 21:00; Stop at 20:59; Status DC Thiamine HCl (Vitamin B1) 100 mg DAILY PO Last administered on 08/03/16 09:14 ; Start 07/30/16 at 09:00; Stop 08/04/16 at 08:12; Status DC Flumazenil (Romazicon Inj) 0.2 mg Q1M PRN IV PUSH SEE LABEL COMMENTS; Start 07/26/16 at 20:30 Lorazepam (Ativan) 1 mg Q4H PRN PO CIWA 8 - 10 Last administered on 08/04/16 04:35; Start 07/26/16 at 20:30; Stop 08/04/16 at 08:12; Status DC Lorazepam (Ativan Inj) 1 mg Q4H PRN IV PUSH CIWA 8 - 10 Last administered on 15:45; Start 07/26/16 at 20:30 Lorazepam (Ativan) 2 mg Q2H PRN PO CIWA 11-14; Start 07/26/16 at 20:30; Stop at 08:12; Status DC Lorazepam (Ativan Inj) 2 mg Q2H PRN IV PUSH CIWA 11-14 Last administered on 01:46; Start 07/26/16 at 20:30 Lorazepam (Ativan Inj) 2 mg Q1H PRN IV PUSH CIWA 15-20 Last administered on 14:43; Start 07/26/16 at 20:30 Lorazepam (Ativan Inj) 2 mg Q15M PRN IV PUSH CIWA > 20 Last administered on 18:08; Start 07/26/16 at 20:30 Haloperidol Lactate (Haldol Inj) 2 mg Q15M PRN IM SEE LABEL COMMENTS Last administered on 07/29/16 11:19; Start 07/26/16 at 20:30 Albuterol/ Ipratropium 1 ampule 1 ampule Q4HR NEB PRN NEB SOB/WHEEZING Last administered on 08/04/16 23:56; Start 07/26/16 at 20:30; Stop 08/06/16 at 10:19 ; Status DC Levofloxacin/ Dextrose 150 ml @ 100 mls/hr Q24H IV Last administered on 21:09; Start 07/27/16 at 21:00; Stop 07/29/16 at 08:42; Status DC Sodium Chloride (NS 1000 ml Inj) 1,000 ml @ 100 mls/hr Q10H IV Last administered on 07/27/16 07:00; Start 07/26/16 at 21:00; Stop 07/27/16 at 10:37 ; Status DC IV Flush (NS Flush) 2 ml UNSCH PRN FLUSH FLUSH AFTER USING IV ACCESS Last administered on 08/05/16 06:09; Start 07/26/16 at 20:30 IV Flush (NS Flush) 2 ml BID FLUSH Last administered on 08/12/16 08:15; Start 07/26/16 at 21:00 Ondansetron HCl (Zofran Inj) 4 mg Q6H PRN IVP NAUSEA OR VOMITING Last administered on 08/03/16 00:16; Start 07/26/16 at 20:30 Bisacodyl (Dulcolax Supp) 10 mg DAILY PRN [place] CONSTIPATION; Start 07/26/16 at 20: 30 Acetaminophen (Tylenol) 650 mg Q6H PRN PO FEVER/PAIN SCALE 1 TO 2 Last administered on 08/01/16 20:31; Start 07/26/16 at 20:30; Stop 08/04/16 at 08:12 ; Status DC Oxycodone HCl (Roxicodone) 10 mg Q4H PRN PO PAIN SCALE 6 TO 10 Last administered on 08/02/16 14:44; Start 07/26/16 at 20:30; Stop 08/04/16 at 08:12 ; Status DC Oxycodone HCl (Roxicodone) 5 mg Q4H PRN PO PAIN SCALE 3 TO 5 Last administered on 08/02/16 16:47; Start 07/26/16 at 20:30; Stop 08/04/16 at 08:12; Status DC Lorazepam (Ativan Inj) 1 mg Q6H PRN IV PUSH sz; Start 07/27/16 at 12:00 Magnesium Oxide 400 mg 400 mg Q12HR PO Last administered on 08/03/16 21:06; Start 07/27/16 at 12:15; Stop 08/04/16 at 08:12; Status DC Magnesium Sulfate/ Dextrose (Magnesium Sulfate 1 Gm Premix) 100 ml @ 100 mls/ hr ONCE ONCE IV Last administered on 07/27/16 13:01; Start 07/27/16 at 12:15 ; Stop 07/27/16 at 13:14; Status DC Potassium Chloride (KCl) 20 meq ONCE ONCE PO Last administered on 07/27/16 13 :00; Start 07/27/16 at 12:15; Stop 07/27/16 at 12:27; Status DC Potassium Chloride (KCl) 30 meq ONCE ONCE PO Last administered on 07/27/16 13 :00; Start 07/27/16 at 12:15; Stop 07/27/16 at 12:27; Status DC Chlordiazepoxide 50 mg 50 mg Q8H PO Last administered on 07/27/16 20:27; Start 07/27/16 at 20:00; Stop 07/28/16 at 08:03; Status DC Dexmedetomidine HCl 50 ml @ 0 mls/hr TITRATE IV Last administered on 08/01/16 04:23; Start 07/27/16 at 21:00; Stop 08/03/16 at 21:25; Status DC Propofol (Diprivan 1000 Mg/100ml Inj) 100 ml @ As Directed STK-MED ONCE .ROUTE ; Start 07/27/16 at 21:04; Stop 07/27/16 at 21:05; Status DC Miscellaneous Information Patient in critical care unit? Ass... [id number] ; Start 07/27/16 at 22:30 Chlorhexidine Gluconate (Chlorhexidine 2% Cloth) 3 pack DAILY@04 TOP Last administered on 08/01/16 04:24; Start 07/28/16 at 04:00; Stop 08/01/16 at 04:01 ; Status DC Chlorhexidine Gluconate 3 pack 3 pack UNSCH PRN TOP HYGIENIC CARE; Start at 22:30; Stop 08/01/16 at 22:25; Status DC Potassium Chloride 100 ml @ 50 mls/hr Q2H PRN IV For Potassium 2.8 - 3.2 mEq/L ; Start 07/28/16 at 08:00; Stop 08/03/16 at 22:14; Status DC Potassium Chloride (KCl 20 Meq Premix Inj) 100 ml @ 50 mls/hr Q2H PRN IV For Potassium 2.8 - 3.2 mEq/L Last administered on 08/03/16t 01:41; Start 07/28/16 at 08:00; Stop 08/03/16 at 22:14; Status DC Potassium Chloride 40 meq 40 meq UNSCH PRN PO/TUBE For Potassium 3.3 - 3.5 mEq/ L; Start 07/28/16 at 08:00; Stop 08/03/16 at 22:14; Status DC Potassium Chloride 100 ml @ 25 mls/hr UNSCH PRN IV For Potassium 3.3 - 3.5 mEq /L; Start 07/28/16 at 08:00; Stop 08/03/16 at 22:14; Status DC Potassium Chloride 100 ml @ 50 mls/hr Q2H PRN IV For Potassium 3.3 - 3.5 mEq/L ; Start 07/28/16 at 08:00; Stop 08/03/16 at 22:14; Status DC Magnesium Sulfate/ Sodium Chloride (Magnesium Sulfate Inj/NS Inj) 100 ml @ 50 mls/hr UNSCH PRN IV For Magnesium 0.9 - 1.1 mg/dL; Start 07/28/16 at 08:00; Stop 08/03/16 at 22:14; Status DC Magnesium Oxide 800 mg 800 mg UNSCH PRN PO For Magnesium 1.2 - 1.6 mg/dL; Start 07/28/16 at 08:00; Stop 08/03/16 at 22:14; Status DC Magnesium Sulfate/ Sodium Chloride (Magnesium Sulfate Inj/NS Inj) 100 ml @ 50 mls/hr UNSCH PRN IV For Magnesium 1.2 - 1.6 mg/dL; Start 07/28/16 at 08:00; Stop 08/03/16 at 22:14; Status DC Potassium Phosphate 2000 mg 2,000 mg Q4H PRN PO For Phosphorus < 2.5 mg/dL; Start 07/28/16 at 08:00; Stop 08/03/16 at 22:14; Status DC Sodium Phosphate/ Sodium Chloride (Sodium Phosphate Inj/NS 250 ml Inj) 250 ml @ 42 mls/hr UNSCH PRN IV For Phosphorus < 2.5 mg/dL Last administered on 09:03; Start 07/28/16 at 08:00; Stop 08/03/16 at 22:14; Status DC Potassium Chloride (KCl 40 Meq/30 ml Liq) 40 meq UNSCH PRN PO/TUBE SEE LABEL COMMENTS; Start 07/28/16 at 08:00; Stop 08/03/16 at 22:14; Status DC Potassium Phosphate 2000 mg 2,000 mg UNSCH PRN PO/TUBE SEE LABEL COMMENTS; Start 07/28/16 at 08:00; Stop 08/03/16 at 22:14; Status DC Potassium Phosphate 30 mmol/ Sodium Chloride 260 ml @ 42 mls/hr UNSCH PRN IV SEE LABEL COMMENTS Last administered on 08/03/16 02:57; Start 07/28/16 at 08:00 ; Stop 08/03/16 at 22:14; Status DC Sodium Chloride 250 ml @ 15 mls/hr ONCE ONCE IV ; Start 07/28/16 at 11:00; Stop 07/29/16 at 03:39; Status DC Potassium Chloride/Sodium Chloride 1,000 ml @ 84 mls/hr [id number] IV Last administered on 07/30/16 05:08; Start 07/28/16 at 15:15; Stop 07/30/16 at 07:28 ; Status DC Azithromycin 500 mg/Sodium Chloride 250 ml @ 250 mls/hr Q24H IV Last administered on 08/04/16 10:02; Start 07/29/16 at 09:00; Stop 08/04/16 at 14:53 ; Status DC Aztreonam/Sodium Chloride (Azactam Inj/NS Inj) 100 ml @ 200 mls/hr Q8H IV Last administered on 08/04/16 12:24; Start 07/29/16 at 10:00; Stop 08/04/16 at 14:53; Status DC Dextrose (D50w (Vial) Inj) 25 ml UNSCH PRN IV PUSH HYPOGLYCEMIA-SEE COMMENTS; Start 07/29/16 at 08:45 Glucagon 1 mg 1 mg UNSCH PRN OTHER HYPOGLYCEMIA-SEE COMMENTS; Start 07/29/16 at 08:45 Potassium Chloride/Dextrose/ Sod Cl 1,000 ml @ 84 mls/hr [id number] IV Last administered on 08/02/16 02:19; Start 07/30/16 at 07:30; Stop 08/02/16 at 06:25 ; Status DC Metronidazole (Flagyl 500 Mg Inj) 100 ml @ 100 mls/hr Q8HR IV Last administered on 08/04/16 13:58; Start 07/31/16 at 06:15; Stop 08/04/16 at 14:55 ; Status DC Albuterol/ Ipratropium (Duoneb Neb) 1 ampule QID NEB NEB Last administered on 08/05/16 08:24; Start 07/31/16 at 08:00; Stop 08/05/16 at 10:50; Status DC Methylprednisolone Sodium Succinate (SoluMEDROL INJ) 40 mg Q8HR IV PUSH Last administered on 08/03/16 13:06; Start 08/01/16 at 14:00; Stop 08/03/16 at 15:58 ; Status DC Docusate Sodium (Colace) 100 mg BID PRN PO CONSTIPATION; Start 08/01/16 at 17: 30; Stop 08/04/16 at 08:12; Status DC Senna/Docusate Sodium (Clarisa-Colace) 2 tab BID PO Last administered on 09:09; Start 08/01/16 at 21:00; Stop 08/04/16 at 08:12; Status DC Lactulose (Lactulose Liq) 30 ml TID PRN PO CONSTIPATION Last administered on 09:10; Start 08/01/16 at 17:30; Stop 08/04/16 at 08:12; Status DC Magnesium Hydroxide (Milk Of Magnesia Liq) 30 ml Q6H PRN PO CONSTIPATION; Start 08/01/16 at 17:30; Stop 08/04/16 at 08:12; Status DC Clonidine (Catapres) 0.1 mg Q12HR PO Last administered on 08/03/16 21:06; Start 08/02/16 at 09:45; Stop 08/04/16 at 08:12; Status DC Methylprednisolone Sodium Succinate (SoluMEDROL INJ) 40 mg BID IV PUSH Last administered on 08/04/16 10:01; Start 08/03/16 at 21:00; Stop 08/04/16 at 10:05 ; Status DC Acetaminophen (Tylenol) 650 mg Q6H PRN NG FEVER/PAIN SCALE 1 TO 2; Start at 08:30; Stop 08/05/16 at 18:02; Status DC Clonidine (Catapres) 0.1 mg Q12HR PO/NG Last administered on 08/04/16 10:01; Start 08/04/16 at 09:00; Stop 08/04/16 at 14:55; Status DC Docusate Sodium (Colace) 100 mg BID PRN NG CONSTIPATION; Start 08/04/16 at 08: 15; Stop 08/05/16 at 18:03; Status DC Senna/Docusate Sodium (Clarisa-Colace) 2 tab BID NG ; Start 08/04/16 at 09:00; Stop 08/05/16 at 18:04; Status DC Lactulose (Lactulose Liq) 30 ml TID PRN NG CONSTIPATION; Start 08/04/16 at 08: 15; Stop 08/05/16 at 18:04; Status DC Lorazepam (Ativan) 1 mg Q4H PRN NG CIWA 8 - 10 Last administered on 08/05/16 03:40; Start 08/04/16 at 08:30; Stop 08/05/16 at 18:06; Status DC Lorazepam (Ativan) 2 mg Q2H PRN NG CIWA 11-14; Start 08/04/16 at 08:30; Stop at 18:06; Status DC Magnesium Hydroxide (Milk Of Magnesia Liq) 30 ml Q6H PRN NG CONSTIPATION; Start 08/04/16 at 11:30; Stop 08/05/16 at 18:07; Status DC Magnesium Oxide (Mag-Ox) 400 mg Q12HR NG Last administered on 08/05/16 09:00; Start 08/04/16 at 09:00; Stop 08/05/16 at 18:07; Status DC Oxycodone HCl (Roxicodone) 5 mg Q4H PRN NG PAIN SCALE 3 TO 5 Last administered on 08/04/16 21:13; Start 08/04/16 at 08:30; Stop 08/05/16 at 18:07; Status DC Oxycodone HCl (Roxicodone) 10 mg Q4H PRN NG PAIN SCALE 6 TO 10; Start 08/04/16 at 08:30; Stop 08/05/16 at 18:07; Status DC Thiamine HCl (Vitamin B1) 100 mg DAILY NG Last administered on 08/05/16 09:00 ; Start 08/04/16 at 09:00; Stop 08/05/16 at 18:08; Status DC Lactobacillus Acidophilus (Lactinex) 1 tab TID NG Last administered on 09:07; Start 08/04/16 at 09:00; Stop 08/05/16 at 18:08; Status DC Prednisone (Deltasone) 40 mg DAILY PO Last administered on 08/05/16 09:07; Start 08/05/16 at 09:00; Stop 08/05/16 at 16:14; Status DC Insulin Aspart (NovoLOG SUPPLEMENTAL SCALE) 1 ACHS SLIDING SCALE SQ Last administered on 08/09/16 16:36; Start 08/04/16 at 11:00; Stop 08/10/16 at 05:43 ; Status DC Clonidine 0.1 mg 0.1 mg Q8HR PO/NG Last administered on 08/05/16 06:06; Start 08/04/16 at 22:00; Stop 08/05/16 at 18:03; Status DC Potassium Phosphate/Sodium Chloride (Potassium Phosphate Inj/NS 250 ml Inj) 260 ml @ 43.333 mls/ hr ONCE ONCE IV Last administered on 08/04/16 17:48; Start 08/04/16 at 16:00; Stop 08/04/16 at 21:59; Status DC Potassium Phosphate (K-Phos) 1,000 mg Q12HR PO/NG Last administered on 09:07; Start 08/04/16 at 15:00; Stop 08/05/16 at 18:09; Status DC Levofloxacin (Levaquin) 750 mg DAILY NG Last administered on 08/05/16 09:07; Start 08/05/16 at 09:00; Stop 08/05/16 at 16:14; Status DC Metronidazole (Flagyl) 500 mg Q6HR NG Last administered on 08/05/16 11:42; Start 08/04/16 at 18:00; Stop 08/05/16 at 18:09; Status DC Haloperidol Lactate (Haldol Inj) 2 mg Q8H PRN IM severe agitation Last administered on 08/06/16 11:46; Start 08/04/16 at 15:00 Enoxaparin Sodium (Lovenox Inj) 40 mg Q24H SQ Last administered on 08/10/16 12 :22; Start 08/04/16 at 15:00 Furosemide (Lasix Inj) 40 mg ONCE ONCE IV PUSH Last administered on 08/05/16 06:05; Start 08/05/16 at 05:45; Stop 08/05/16 at 05:49; Status DC Potassium Chloride (KCl 40 Meq/30 ml Liq) 40 meq ONCE ONCE PO/NG Last administered on 08/05/16 06:05; Start 08/05/16 at 05:45; Stop 08/05/16 at 05:49 ; Status DC Albuterol/ Ipratropium (Duoneb Neb) 1 ampule Q4HR NEB NEB Last administered on 08/06/16 07:56; Start 08/05/16 at 12:00; Stop 08/06/16 at 10:19; Status DC Bumetanide 1 mg 1 mg ONCE ONCE IV PUSH Last administered on 08/05/16 11:41; Start 08/05/16 at 11:00; Stop 08/05/16 at 11:01; Status DC Vancomycin HCl/ Sodium Chloride (Vancomycin Inj/ NS 250 ml Inj) 250 ml @ 250 mls/hr ONCE ONCE IV Last administered on 08/05/16 11:42; Start 08/05/16 at 11 :00; Stop 08/05/16 at 11:59; Status DC Haloperidol 1 mg 1 mg BID PO Last administered on 08/05/16 20:39; Start at 21:00; Stop 08/06/16 at 10:19; Status DC Potassium Chloride/Dextrose/ Sod Cl (D5-1/2 NS + KCl 10 Meq Inj) 1,000 ml @ 84 mls/hr [id number] IV Last administered on 08/05/16 19:19; Start 08/05/16 at 17:00 ; Stop 08/06/16 at 03:53; Status DC Methylprednisolone Sodium Succinate 40 mg 40 mg Q12HR IV PUSH Last administered on 08/07/16 09:44; Start 08/05/16 at 21:00; Stop 08/07/16 at 15:11 ; Status DC Levofloxacin/ Dextrose (Levaquin 500 Mg Premix Inj) 100 ml @ 100 mls/hr Q24H IV Last administered on 08/10/16 09:02; Start 08/06/16 at 09:00; Stop at 13:38; Status DC Acetaminophen (Tylenol) 650 mg Q6H PRN PO FEVER/PAIN SCALE 1 TO 2; Start at 18:15 Clonidine (Catapres) 0.1 mg Q8HR PO Last administered on 08/11/16 13:05; Start 08/05/16 at 22:00 Docusate Sodium (Colace) 100 mg BID PRN PO CONSTIPATION; Start 08/05/16 at 18: 15 Senna/Docusate Sodium (Clarisa-Colace) 2 tab BID PO Last administered on 09:12; Start 08/05/16 at 21:00 Lactulose (Lactulose Liq) 30 ml TID PRN PO CONSTIPATION; Start 08/05/16 at 18: 15 Lorazepam (Ativan) 1 mg Q4H PRN PO CIWA 8 - 10 Last administered on 08/06/16 06:58; Start 08/05/16 at 18:15 Lorazepam (Ativan) 2 mg Q2H PRN PO CIWA 11-14; Start 08/05/16 at 18:15 Magnesium Hydroxide (Milk Of Magnesia Liq) 30 ml Q6H PRN PO CONSTIPATION; Start 08/05/16 at 18:15 Magnesium Oxide (Mag-Ox) 400 mg Q12HR PO Last administered on 08/12/16 08:15; Start 08/05/16 at 21:00 Oxycodone HCl (Roxicodone) 5 mg Q4H PRN PO PAIN SCALE 3 TO 5 Last administered on 08/06/16 08:15; Start 08/05/16 at 18:15 Oxycodone HCl (Roxicodone) 10 mg Q4H PRN PO PAIN SCALE 6 TO 10 Last administered on 08/12/16 06:51; Start 08/05/16 at 18:15 Thiamine HCl (Vitamin B1) 100 mg DAILY PO Last administered on 08/12/16 08:14 ; Start 08/06/16 at 09:00 Lactobacillus Acidophilus (Lactinex) 1 tab TID PO Last administered on 08:15; Start 08/06/16 at 09:00 Potassium Phosphate (K-Phos) 1,000 mg Q12HR PO Last administered on 08/12/16 08:15; Start 08/05/16 at 21:00 Metronidazole (Flagyl) 500 mg Q6HR PO Last administered on 08/12/16 06:48; Start 08/06/16 at 00:00; Stop 08/13/16 at 23:59 Bumetanide 1 mg 1 mg ONCE ONCE IV PUSH Last administered on 08/06/16 04:02; Start 08/06/16 at 04:00; Stop 08/06/16 at 04:01; Status DC Pharmacy Profile Note 0 ml @ 0 mls/hr UNSCH OTHER ; Start 08/06/16 at 05:00; Stop 08/10/16 at 13:39; Status DC Vancomycin HCl/ Sodium Chloride (Vancomycin Inj/ NS 250 ml Inj) 250 ml @ 250 mls/hr ONCE ONCE IV Last administered on 08/06/16 07:00; Start 08/06/16 at 06 :00; Stop 08/06/16 at 06:59; Status DC Haloperidol (Haldol) 2 mg TID PO Last administered on 08/12/16 08:15; Start at 13:00 Albuterol Sulfate (Albuterol Neb) 0.63 mg QID NEB NEB Last administered on 07:23; Start 08/06/16 at 12:00 Albuterol Sulfate (Albuterol Neb) 0.63 mg Q4HR NEB PRN NEB sob; Start 08/06/16 at 10:15 Ipratropium Roundup 0.5 mg 0.5 mg QID NEB NEB Last administered on 08/12/16 07:23; Start 08/06/16 at 12:00 Vancomycin HCl 1000 mg/Sodium Chloride 250 ml @ 250 mls/hr Q12H IV Last administered on 08/08/16 06:50; Start 08/06/16 at 18:00; Stop 08/08/16 at 09:16 ; Status DC Potassium Chloride/Sodium Chloride (NS + KCl 20 Meq Inj) 1,000 ml @ 50 mls/hr Q20H PRN IV po < 50% Last administered on 08/06/16 14:55; Start 08/06/16 at 10: 15; Stop 08/07/16 at 15:11; Status DC Miscellaneous Information SPECIFIC LAB TO BE DRAWN:VANCOMYCIN TROUGH DATE TO... ONCE ONCE XX Last administered on 08/08/16 06:45; Start 08/08/16 at 05:45; Stop 08/08/16 at 05:46; Status DC Potassium Chloride (KCl) 50 meq ONCE ONCE PO Last administered on 08/06/16 13 :09; Start 08/06/16 at 10:30; Stop 08/06/16 at 10:31; Status DC Prednisone (Deltasone) 40 mg DAILY PO Last administered on 08/08/16 09:37; Start 08/08/16 at 09:00; Stop 08/08/16 at 18:12; Status DC Lisinopril (Prinivil) 2.5 mg DAILY PO Last administered on 08/12/16 08:15; Start 08/08/16 at 09:00 Budesonide/ Formoterol Fumarate 1 puff 1 puff Q12HR INH Last administered on 08:15; Start 08/07/16 at 21:00 Vancomycin HCl/ Sodium Chloride (Vancomycin Inj/ NS 250 ml Inj) 250 ml @ 250 mls/hr Q8H IV Last administered on 08/09/16 12:36; Start 08/08/16 at 12:00; Stop 08/09/16 at 13:07; Status DC Miscellaneous Information SPECIFIC LAB TO BE DRAWN:VANCOMYCIN TROUGH DATE TO... ONCE ONCE XX Last administered on 08/09/16 11:45; Start 08/09/16 at 11:45; Stop 08/09/16 at 11:46; Status DC Prednisone 10 mg 10 mg BID PO Last administered on 08/11/16 09:12; Start 08/08 at 21:00; Stop 08/11/16 at 18:25; Status DC Vancomycin HCl/ Sodium Chloride (Vancomycin Inj/ NS 250 ml Inj) 262.5 ml @ 250 mls/hr Q8H IV Last administered on 08/10/16 12:21; Start 08/09/16 at 20:00; Stop 08/10/16 at 13:40; Status DC Miscellaneous Information SPECIFIC LAB TO BE DRAWN:VANCOMYCIN TROUGH DATE TO... ONCE ONCE XX Last administered on 08/11/16 13:08; Start 08/11/16 at 11:45; Stop 08/11/16 at 11:46; Status DC Doxycycline Hyclate (Vibramycin) 100 mg BID PO Last administered on 08/12/16 08:15; Start 08/10/16 at 13:45; Stop 08/15/16 at 13:44 Levofloxacin (Levaquin) 750 mg DAILY PO Last administered on 08/12/16 08:14; Start 08/11/16 at 09:00; Stop 08/13/16 at 08:59 Prednisone (Deltasone) 10 mg DAILY PO ; Start 08/13/16 at 09:00 A/P Problem List: (1) Alcohol withdrawal ICD Code: F10.239 Status: Acute (2) Thrombocytopenia ICD Code: D69.6 Status: Acute (3) Hypomagnesemia ICD Code: E83.42 Status: Acute (4) Hypokalemia ICD Code: E87.6 Status: Acute (5) PNA (pneumonia) ICD Code: J18.9 Status: Acute (6) Tobacco abuse ICD Code: Z72.0 Status: Acute Assessment and Plan Alcohol Withdrawal -back to baseline. -do not see any signs of withdrawing -on PRN Haldol Hypokalemia and hypophosphatemia secondary to alcohol abuse -replenish PRN. Hypomagnesemia -Improved. Recheck and replace as needed. Severe sepsis PNA - Negative urinary Legionella and pneumococcal antigen. Much improved switch to by mouth doxycycline and Levaquin. Continue Flagyl till August 13. Wean prednisone. Thrombocytopenia - Presumably chronic secondary to alcohol abuse and splenic sequestration. No active bleeding at this time. Monitor. Spleen not visualized on sonogram, liver with fatty infiltration. evaluated by hematology. Cardiomyopathy with ejection fraction 30% secondary to sepsis. - Trial FELTON inhibitor. Hold beta ashok secondary to recent wheezing. At this time he is not in fluid overloaded no need for further diuresis Hypertension and tachycardia secondary to #1. - IMPROVED. - Continue clonidine and telemetry.continue Haldol and decreased nebs. Improved Hyperglycemia likely secondary to steroids. - A1c 6.1. Discontinued sliding scale coverage Deconditioning. Physical therapy DVT Prophylaxis: Improving thrombocytopenia continue Lovenox dc planning; SNF vs home when stable with PT. Problem Qualifiers (1) Alcohol withdrawal: Qualified Code: F10.230 - Alcohol withdrawal, uncomplicated (2) PNA (pneumonia): Qualified Code: J18.1 - Pneumonia of right middle lobe due to infectious organism Barbara Abdalla MD Aug 12, 2016 13:06
[2016-08-12] MEDS: ENOXAPARIN SODIUM 40 MG/0.4 ML SYRINGE SQ SCH (15:00)
--- NOTE | 2016-08-12 16:58 | HHI.PR ---
Subjective Remarks Doing well. No fever. No cough or wheezing Off O2. Objective Vital Signs Date Time Temp Pulse Resp B/P Pulse Ox O2 Delivery O2 Flow Rate FiO2 08/12/16 16:00 95.9 77 16 92/53 98 08/12/16 12:00 96.3 76 16 104/62 94 08/12/16 08:15 95 Room Air 08/12/16 08:00 96.4 79 16 109/69 95 08/12/16 07:23 96 21 08/12/16 04:33 97.9 70 18 105/56 94 08/12/16 00:26 96.6 72 18 104/60 95 08/11/16 20:54 96.0 72 18 101/61 93 08/11/16 20:10 98 Nasal Cannula I/O 08/11/16 08/11/16 08/11/16 08/12/16 08/12/16 08/12/16 07:00 15:00 23:00 07:00 15:00 23:00 Intake Total 600 ml 360 ml 240 ml Output Total 150 ml 2 ml Balance -150 ml 600 ml 360 ml 238 ml Intake Oral 600 ml 360 ml 240 ml Output Urine Total 150 ml 2 ml # Voids 3 2 4 # Bowel Movements 2 1 Result Diagram: 08/09/16 0912 Objective Remarks GENERAL: This thinly built middle-aged white male who is alert ,oriented.. HEENT: Head normocephalic. Pupils are reactive. Sclerae are clear. Tongue is dry. Throat is clear. NECK: Supple. No bruits or thyroid enlargement or lymphadenopathy. CHEST: Equal movements with clear lungs. CARDIOVASCULAR: Heart sounds are regular S1-S2. No murmur. No S3. ABDOMEN: The abdomen is soft, scaphoid without masses. No organomegaly or tenderness. Bowel sounds are active. EXTREMITIES: No edema. There is muscle wasting of the extremities. No gross motor deficits. NEUROLOGICAL: 1 + reflexes. oriented RECTAL: Exam is deferred. SKIN: Dry and warm. Assessment and Plan Assessment and Plan IMPRESSION 1. Aspiration pneumonia.Resolving 2. COPD with emphysema. 3. Alcohol withdrawal with delirium tremens. 4. Thrombocytopenia. 5. Hypokalemia. Plan : 1. IS at bedside q3h 2. D/C Prednisone in am. 3. D/C Nebs and add Spiriva , 1 cap daily. 4. Rehab placement. 5. Ok to go home 6. Symbicort 160/4.5 mcg , 2puffs bid Mulugeta Masters MD Aug 12, 2016 16:58
[2016-08-13] VITALS: BP 103/58; PULSE 72; RESP 18; TEMP 96.3; O2SAT 94
[2016-08-13] MEDS: metroNIDAZOLE 500 MG TAB PO SCH ×3 (01:42→12:00)
[2016-08-13 04:17] VITALS: BP 106/56; PULSE 74; RESP 18; TEMP 96.3; O2SAT 93
[2016-08-13] MEDS: cloNIDine HCL 0.1 MG TAB PO SCH (06:00)
[2016-08-13] MEDS: RESP: IPRATROPIUM 0.5 MG/2.5 ML NEB NEB SCH ×2 (07:31→11:24)
[2016-08-13 07:32] VITALS: O2SAT 95
[2016-08-13 08:00] VITALS: BP 95/54; PULSE 78; RESP 20; TEMP 97.3; O2SAT 98
[2016-08-13] MEDS ORDERED: predniSONE 10 MG TAB PO SCH (09:00)
[2016-08-13] MEDS: LISINOPRIL 5 MG TAB PO SCH (09:00)
[2016-08-13] MEDS ORDERED: TIOTROPIUM BROMIDE 18 MCG INH INH SCH (09:00)
[2016-08-13] MEDS: DOCUSATE SODIUM 50 MG/SENNA 8.6 MG TAB PO SCH (09:00)
[2016-08-13] MEDS: POTASSIUM PHOSPHATE MONOBASIC 500 MG TAB PO SCH (09:00)
[2016-08-13] MEDS: BUDESONIDE-FORMOTEROL 160/4.5 MCG INHALER INH SCH (10:18)
[2016-08-13] MEDS: DOXYCYCLINE HYCLATE 100 MG CAP PO SCH (10:21)
[2016-08-13] MEDS: HALOPERIDOL 1 MG TAB PO SCH ×2 (10:21→13:00)
[2016-08-13] MEDS: THIAMINE HCL 100 MG TAB PO SCH (10:22)
[2016-08-13] MEDS: MAGNESIUM OXIDE 400 MG TAB PO SCH (10:22)
[2016-08-13] MEDS: SODIUM CHLORIDE 0.9% FLUSH 5 ML FLUSH FLUSH SCH (10:23)
[2016-08-13] MEDS: LACTOBACILLUS ACIDOPHILUS TAB PO SCH ×2 (10:23→13:00)
[2016-08-13] MEDS ORDERED: MAGN400T3 PO (11:53)
[2016-08-13] MEDS ORDERED: K-PHTAB PO (11:53)
[2016-08-13] MEDS ORDERED: CLON.1 PO (11:53)
[2016-08-13] MEDS ORDERED: DOXY100C PO (11:53)
[2016-08-13] MEDS ORDERED: SYMB160A INH (11:53)
[2016-08-13] MEDS ORDERED: METR-1 PO (11:53)
[2016-08-13] MEDS ORDERED: LISI-519 PO (11:53)
--- NOTE | 2016-08-13 11:53 | HHI.DS ---
Discharge Summary Admission Date Jul 26, 2016 at 20:21 Discharge Date: Aug 14, 2016 Admitting Diagnosis Right middle lobe pneumonia, alcohol withdrawal, hypomagnesemia (1) PNA (pneumonia) ICD Code: J18.9 Diagnosis: Principal (2) Alcohol withdrawal ICD Code: F10.239 Diagnosis: Principal (3) Thrombocytopenia ICD Code: D69.6 Diagnosis: Secondary (4) Hypomagnesemia ICD Code: E83.42 Diagnosis: Principal (5) Hypokalemia ICD Code: E87.6 Diagnosis: Principal (6) Tobacco abuse ICD Code: Z72.0 Diagnosis: Secondary Procedures none Brief History - From Admission This is a 51-year-old male with a PMH of Depression, Alcohol Abuse, Alcohol Related Seizure and Tobacco Abuse who presented to the ER with complaints of tremors and intentions of quitting alcohol. States he stopped drinking at approx noon today. Has had progressive tremors since then. On arrival, BP 142/ 83, HR 122, O2 sat 90% on RA, Afebrile. Na 128, K+ 3.2, Lactic Acid 2.5, Mg 1.1. WBC normal. Hgb 13.2, MCV 106. Platelets 20. No active bleeding noted. Alcohol 30. CXR w/ infiltrate RLL and RML. S/p Levaquin in ER. CBC/BMP: 08/09/16 0912 Imaging Last Impressions Chest X-Ray 08/11/16 0600 Signed Impressions: Service Date/Time: Thursday, August 11, 2016 06:16 - CONCLUSION: Improved aeration of the right lung. Ronaldo Joy MD Brain MRI 08/06/16 0000 Signed Impressions: Service Date/Time: Saturday, August 06, 2016 17:13 - CONCLUSION: Atrophy. No acute intracranial abnormality. Jason Rodrigues MD Chest CT 08/05/16 1610 Signed Impressions: Service Date/Time: Saturday, August 06, 2016 01:32 - CONCLUSION: 1. Fairly diffuse areas of consolidation. The rapid nature of the onset comparing prior chest x-rays suggest progressing inflammatory/infectious process versus edema. 2. Underlying chronic appearing emphysematous change. 3. Bilateral mild pleural effusions being worse on the right. Fermin Stevenson MD Head CT 08/01/16 0000 Signed Impressions: Service Date/Time: Monday, August 01, 2016 14:08 - CONCLUSION: 1. No acute intracranial abnormality. 2. Subcutaneous emphysema in the upper neck Adam Young MD Liver Ultrasound 07/27/16 0000 Signed Impressions: Service Date/Time: Wednesday, July 27, 2016 12:07 - CONCLUSION: 1. Enlarged , echogenic liver suggesting some fatty infiltration. 2. Limited visualization of the pancreas with nonvisualization of the spleen. 3. Otherwise negative. Ki Carlos MD PE at Discharge Gen NAD Resp CTA B/L CV RRR. no r/m/g Abd soft NDNT Neuro AAO X 3. no tremors noted. Hospital Course Alcohol Withdrawal -patient was put on CIWA protocol and was treated with fluids. patient was also given haldol PRN for agitation. -vitamins and minerals were replenished as needed. -during hospitalization able to wean off of benzodiazepine. Hypokalemia and hypophosphatemia secondary to alcohol abuse -replenish PRN. Hypomagnesemia -Improved. Recheck and replace as needed. Severe sepsis PNA -patient was treated with IVFs. CXR suggest PNA. - further work up done and negative urinary Legionella and pneumococcal antigen. -He was initially treated with IV aztreonam and Zithromax and add IV Flagyl.. Then switch to doxycycline, flagyl, and Levaquin. -patient was also put on steroids that was weaned off. Thrombocytopenia - Presumably chronic secondary to alcohol abuse and splenic sequestration. No active bleeding at this time. Monitor. Spleen not visualized on sonogram, liver with fatty infiltration. evaluated by hematology. Cardiomyopathy with ejection fraction 30% secondary to sepsis. - Trial FELTON inhibitor. Hold beta ashok secondary to recent wheezing. At this time he is not in fluid overloaded no need for further diuresis Hypertension and tachycardia secondary to #1. - IMPROVED with treatment as above. Hyperglycemia likely secondary to steroids. - A1c 6.1. Discontinued sliding scale coverage Deconditioning. Physical therapy Pt Condition on Discharge: Stable Discharge Disposition: Discharge Home Discharge Time: <= 30 minutes Discharge Instructions DIET: Follow Instructions for: Heart Healthy Diet Activities you can perform: Regular-No Restrictions Follow up Referrals: PCP Follow-up - 1 Week Pulmonology - 1 Week New Medications: Tiotropium Inh (Spiriva Handihaler) 18 Mcg Cap 18 MCG INH DAILY 1 capsule = 18 mcg COPD #30 Ref 0 CAP Budesonide-Formoterol Inh (Symbicort Inh) 160-4.5 Mcg/Act Aero 2 PUFF INH Q12HR COPD Days 30 Ref 0 INHALER Clonidine (Catapres) 0.1 Mg Tab 0.1 MG PO Q8HR hypertension Days 30 Ref 0 TAB Doxycycline Hyclate (Doxycycline Hyclate) 100 Mg Cap 100 MG PO BID pneumonia Days 1 Ref 0 CAP Lisinopril (Lisinopril) 5 Mg Tab 2.5 MG PO DAILY hypertension #30 Ref 0 TAB Magnesium Oxide (Magnesium Oxide) 241.3 Mg Tab 400 MG PO Q12HR low magnesium Days 30 Ref 0 TAB Metronidazole (Flagyl) 500 Mg Tab 500 MG PO Q6HR pneumonia Days 1 Ref 0 TAB Potassium Phosphate Monobasic (K-Phos) 500 Mg Tab 1000 MG PO Q12HR low potassium Days 10 Ref 0 TAB Barbara Abdalla MD Aug 13, 2016 11:53
--- NOTE | 2016-08-13 11:53 | HHI.DCPOC ---
Discharge Care Plan Diagnosis: (1) Hypokalemia (2) Hypomagnesemia (3) Alcohol withdrawal (4) PNA (pneumonia) (5) Tobacco abuse (6) Thrombocytopenia Goals to Promote Your Health * To prevent worsening of your condition and complications * To maintain your health at the optimal level Directions to Meet Your Goals Take your medications as prescribed Follow your dietary instruction Follow activity as directed Keep your appointments as scheduled Take your immunizations and boosters as scheduled If your symptoms worsen call your PCP, if no PCP go to Urgent Care Center or Emergency Room Smoking is Dangerous to Your Health. Avoid second hand smoke Call the 24-hour hour crisis hotline for domestic abuse at Barbara Abdalla MD Aug 13, 2016 11:53
[2016-08-13] MEDS ORDERED: SPIRCAP INH (11:55)
[2016-08-13 12:00] VITALS: BP 86/64; PULSE 88; RESP 20; TEMP 96.2; O2SAT 100
[2016-08-13 12:19] VITALS: RESP 20
== END 2016-08-13 13:42 | disposition home or self-care (01) | DRG 871 ==
LOC: NEPA 17:41 → NEDA 20:21 → NEDH 07-27 02:43 → HIMN 07-27 17:45 → N05A 08-04 00:11
PROVIDERS: ADMIT Family Medicine; ATTEND Family Medicine
DX: A41.9 Sepsis, unspecified organism (principal); J69.0 Pneumonitis due to inhalation of food and vomit; G93.40 Encephalopathy, unspecified; F10.231 Alcohol dependence with withdrawal delirium; D69.59 Other secondary thrombocytopenia; J44.0 Chronic obstructive pulmonary disease with (acute) lower respiratory infection; E87.1 Hypo-osmolality and hyponatremia; I42.9 Cardiomyopathy, unspecified; K76.0 Fatty (change of) liver, not elsewhere classified; E83.42 Hypomagnesemia; R65.20 Severe sepsis without septic shock; M54.5 Low back pain; G89.29 Other chronic pain; E87.6 Hypokalemia; F41.9 Anxiety disorder, unspecified; E83.39 Other disorders of phosphorus metabolism; R73.9 Hyperglycemia, unspecified; I10 Essential (primary) hypertension; T38.0X5A Adverse effect of glucocorticoids and synthetic analogues, initial encounter; F12.90 Cannabis use, unspecified, uncomplicated; F17.210 Nicotine dependence, cigarettes, uncomplicated; F32.9 Major depressive disorder, single episode, unspecified; Z78.1 Physical restraint status
CPT/HCPCS: 36600; 70450; 70551; 71010; 71250; 76705; 76937; 80048; 80053; 80202; 80320; 82140; 82565; 82607; 82805; 82948; 83036; 83605; 83735; 83880; 84100; 84132; 84443; 85007; 85025; 85027; 85060; 85384; 85610; 85730; 86592; 86900; 86901; 87040; 87449; 87641; 93005; 93306; 94640; 94664; 95819; 96361; 96365; 96367; 96375; 96376; C9399; J0456; J1630; J1650; J1815; J1940; J1956; J2060; J2405; J2920; J2930; J3370; J3411; J3475; J3480; J7030; J7040; J7050; J7512; J7613; J7644

== ENCOUNTER 2016-08-13 19:44 | Emergency (ER) | payer OTHER ==
[~2016-08-13] VITALS: Ht 175.3 cm; Wt 68.0 kg
[~2016-08-13 19:44] MED LIST: CLON.1 PO; DOXY100C PO; K-PHTAB PO; LISI-519 PO; MAGN400T3 PO; METR-1 PO; OXYC-392 PO; SPIRCAP INH; SYMB160A INH
[2016-08-13 19:52] VITALS: BP 105/64; PULSE 99; RESP 15; TEMP 98.5; O2SAT 95
--- NOTE | 2016-08-13 20:04 | PD ---
HPI Chief Complaint: General Weakness Time Seen by Provider: 19:46 Travel History International Travel<30 days: No Contact w/Intl Traveler<30days: No Traveled to known affect area: No History of Present Illness HPI The patient is a 51 year old male who presents to the [facility] emergency department with a history of reportedly being admitted to the hospital over the last 11 days related to a diagnosis of pneumonia. The patient reports that he signed out AGAINST MEDICAL ADVICE today as he planned on going back to [place] where he is from the rear patient. He reports that he is homeless and had no particular plan for getting to [place]. He denies having any local family. He realizes sent as he left his hospital room that he had made a mistake. He tried to come back into the hospital and was reportedly told by security that he could leave the premises or be placed under arrest for trespassing. The patient then elected to leave. He reports that he did have one alcoholic beverage while he was gone. He reports that he did smoke some cigarettes. He reports that he was having difficulty ambulating due to generalized weakness, therefore he called ambulance services to transport him back to the hospital. He denies receiving any prescriptions or filling any prescriptions after leaving the hospital earlier today. The patient denies any recent fevers, worsening cough since his treatment for pneumonia, neck pain, chest pain, shortness of breath, abdominal pain, vomiting, diarrhea, urinary symptoms, or focal neurologic symptoms. FORMERLY [facility], [facility] Past Medical History Narrative Medical The patient's past medical history is significant for alcohol abuse, history of drinking 1-2 pints of liquor per day, tobacco abuse, smoking 1 pack of cigarettes per day, history of COPD, history of recent admission for pneumonia, history of depression. Depression: Yes (PARENTS PAST AWAY ) Cardiovascular Problems: No Diminished Hearing: No Genitourinary: No Musculoskeletal: Yes (CHRONIC BACK PAIN DUE TO ACCIDENT ) Neurologic: No Reproductive: No Respiratory: Yes (COPD) Immunizations Current: No Seizures: Yes (RELATED ALCOHOL WITHDRAWAL) Past Surgical History Narrative Surgical The patient's past surgical history is reportedly none. Social History Alcohol Use: Yes (1-2 pints of liquor per day) Tobacco Use: Yes (one pack a day) Substance Use: No Allergies-Medications (Allergen,Severity, Reaction): Coded Allergies: Penicillin (Verified Allergy, Unknown, RASHES, 08/13/16) Reported Meds & Prescriptions Reported Meds & Active Scripts Active Spiriva Handihaler (Tiotropium Inh) 18 Mcg Cap 18 Mcg INH DAILY 1 capsule = 18 mcg K-Phos (Potassium Phosphate Monobasic) 500 Mg Tab 1,000 Mg PO Q12HR 10 Days Flagyl (Metronidazole) 500 Mg Tab 500 Mg PO Q6HR 1 Days Magnesium Oxide 241.3 Mg Tab 400 Mg PO Q12HR 30 Days Lisinopril 5 Mg Tab 2.5 Mg PO DAILY Doxycycline Hyclate 100 Mg Cap 100 Mg PO BID 1 Days Catapres (Clonidine) 0.1 Mg Tab 0.1 Mg PO Q8HR 30 Days Symbicort Inh (Budesonide/Formoterol Fumarate) 160-4.5 Mcg/Act Aero 2 Puff INH Q12HR 30 Days Review of Systems Except as stated in HPI: all other systems reviewed are Neg General / Constitutional: No: Fever Eyes: No: Visual changes HENT: No: Headaches Cardiovascular: Positive: Dyspnea on exertion, No: Chest Pain or Discomfort Respiratory: No: Shortness of Breath Gastrointestinal: No: Abdominal Pain Genitourinary: No: Dysuria Musculoskeletal: No: Pain Skin: No Rash Neurologic: Positive: Weakness (generalized weakness) Psychiatric: No: Depression Endocrine: No: Polydipsia Hematologic/Lymphatic: No: Easy Bruising Physical Exam Narrative General: The patient is a well-developed, thin appearing male in no acute distress.. Head and Neck exam: Head is normocephalic atraumatic. Eyes: EOMI, pupils are equal round and reactive to light. Nose: Midline septum with pink mucous membranes Mouth: Dentition unremarkable. Moist mucus membranes. Posterior oropharynx is not erythematous. No tonsillar hypertrophy. Uvula midline. Airway patent. Neck: No palpable lymphadenopathy. No nuchal rigidity. No thyromegaly. Cardiovascular: Sinus tachycardia in the low 100s without murmurs, gallops, or rubs. No pulse deficit to the extremities and simultaneous auscultation and palpation of his radial artery. Lungs: Clear to auscultation bilaterally. No wheezes, rhonchi, or rales. Abdomen: Soft, without tenderness to palpation in all 4 quadrants of the abdomen. No guarding, rebound, or rigidity. Normal bowel sounds are audible. Extremities: No clubbing, cyanosis, or edema. 2+ pulses in all 4 extremities. No calf tenderness on palpation. Back: No spinous process tenderness to palpation. No costovertebral angle tenderness to palpation. Neurologic Exam: Cranial nerves 2-12 were intact on exam. Strength is 5/5 in all 4 extremities. No sensory deficits noted. The patient was ambulated with the assistance of his nurse Ji, the patient was able to slowly ambulate in the krishnan of the emergency department, however he has a somewhat unsteady gait. Skin Exam: No rash noted. Intact skin that is warm and dry. He has bruises in various stages of healing on his arms. Data Data Last Documented VS Vital Signs Date Time Temp Pulse Resp B/P Pulse Ox O2 Delivery O2 Flow Rate FiO2 08/13/16 20:07 96 14 102/59 102 16 96/62 133 16 98/54 08/13/16 19:55 97 Room Air 08/13/16 19:52 98.5 Orders Electrocardiogram (08/13/16 19:53) Complete Blood Count With Diff (08/13/16 19:53) Basic Metabolic Panel (Bmp) (08/13/16 19:53) C-Reactive Protein (Crp) (08/13/16 19:53) Urinalysis - C+S If Indicated (08/13/16 19:53) Magnesium (Mg) (08/13/16 19:53) Thyroid Stimulating Hormone (08/13/16 19:53) Chest, Single Ap (08/13/16 19:53) Iv Access Insert/Monitor (08/13/16 19:53) Ecg Monitoring (08/13/16 19:53) Oximetry (08/13/16 19:53) Orthostatic Vital Signs (08/13/16 19:53) Drug Screen, Random Urine (08/13/16 19:53) Alcohol (Ethanol) (08/13/16 19:53) Sodium Chlor 0.9% 1000 Ml Inj (Ns 1000 M (08/13/16 20:30) Creatine Kinase (Cpk) (08/13/16 20:24) Ckmb (Isoenzyme) Profile (08/13/16 20:24) Troponin I (08/13/16 20:24) B-Type Natriuretic Peptide (08/13/16 20:24) Aspirin Chew (Aspirin Chew) (08/13/16 20:30) Nitroglycerin 2% Oint (Nitroglycerin 2% (08/13/16 20:30) Levofloxacin (Levaquin) (08/13/16 21:00) Labs Laboratory Tests Test 08/13/16 08/13/16 20:05 20:15 White Blood Count 20.3 TH/MM3 Red Blood Count 3.22 MIL/MM3 Hemoglobin 12.2 GM/DL Hematocrit 34.8 % Mean Corpuscular Volume 108.1 FL Mean Corpuscular Hemoglobin 37.7 PG Mean Corpuscular Hemoglobin 34.9 % Concent Red Cell Distribution Width 17.0 % Platelet Count 318 TH/MM3 Mean Platelet Volume 10.4 FL Neutrophils (%) (Auto) 89.2 % Lymphocytes (%) (Auto) 3.8 % Monocytes (%) (Auto) 6.3 % Eosinophils (%) (Auto) 0.0 % Basophils (%) (Auto) 0.7 % Neutrophils # (Auto) 18.1 TH/MM3 Lymphocytes # (Auto) 0.8 TH/MM3 Monocytes # (Auto) 1.3 TH/MM3 Eosinophils # (Auto) 0.0 TH/MM3 Basophils # (Auto) 0.1 TH/MM3 CBC Comment AUTO DIFF Differential Total Cells 100 Counted Neutrophils % (Manual) 81 % Band Neutrophils % 3 % Lymphocytes % 2 % Monocytes % 5 % Neutrophils # (Manual) 18.9 TH/MM3 Metamyelocytes 5 % Myelocytes 4 % Differential Comment FINAL DIFF MANUAL Platelet Estimate NORMAL Platelet Morphology Comment NORMAL Stomatocytes 1+ Sodium Level 125 MEQ/L Potassium Level 4.9 MEQ/L Chloride Level 91 MEQ/L Carbon Dioxide Level 22.5 MEQ/L Anion Gap 12 MEQ/L Blood Urea Nitrogen 18 MG/DL Creatinine 0.76 MG/DL Estimat Glomerular Filtration 107 ML/MIN Rate Random Glucose 94 MG/DL Calcium Level 8.7 MG/DL Magnesium Level 1.9 MG/DL C-Reactive Protein 2.30 MG/DL Thyroid Stimulating Hormone 1.890 uIU/ML 3rd Gen Ethyl Alcohol Level 151 MG/DL Urine Color YELLOW Urine Turbidity CLEAR Urine pH 6.0 Urine Specific [place] 1.005 Urine Protein NEG mg/dL Urine Glucose (UA) NEG mg/dL Urine Ketones NEG mg/dL Urine Occult Blood NEG Urine Nitrite NEG Urine Bilirubin NEG Urine Urobilinogen LESS THAN 2.0 MG/DL Urine Leukocyte Esterase TRACE Urine WBC LESS THAN 1 /hpf Urine Hyaline Casts 1 /lpf Urine Mucus FEW /lpf Microscopic Urinalysis Comment CULT NOT INDICATED Urine Opiates Screen NEG Urine Barbiturates Screen NEG Urine Amphetamines Screen NEG Urine Benzodiazepines Screen NEG Urine Cocaine Screen NEG Urine Cannabinoids Screen NEG MDM Medical Decision Making Medical Screen Exam Complete: Yes Emergency Medical Condition: Yes Medical Record Reviewed: Yes Interpretation(s) Last Impressions Chest X-Ray 08/13/161952 Signed Impressions: Service Date/Time: Saturday, August 13, 2016 20:05 - CONCLUSION: COPD. No evidence of acute process. Man Griffin MD Differential Diagnosis Dehydration, versus electrolyte abnormality, versus orthostasis Narrative Course During the course of the patients emergency department visit, the patients history, examination, and differential diagnosis were reviewed with the patient. The patient had IV access obtained and blood work sent for analysis. The patient on ambulating become tachycardic up into the high 120s. The patient will have orthostatic vital signs:. The patient's O2 saturation on room air is 97%. A call was placed out to the pillowcase maker on shift currently, however no pillowcase maker answered the call, therefore I suspect that there is not one on for the shift this evening. The patient's electronic medical record was reviewed. According to the record, the patient was assessed for inpatient rehabilitation at [facility], however they declined displacement. It was in progress to continue inpatient rehabilitation and placement of the patient on home O2. This is the last note that was able to be reviewed in the progress notes. An EKG was done on arrival. The patient's EKG shows a sinus tachycardia, no acute ST segment elevation, heart rate of 103, T waves are inverted in lead 2, 3, aVF, V4, V5, V6. The patient's EKG was compared to a prior EKG done at this facility and appears to be changed with new T-wave inversions which could represent ischemia. The patient denies having any chest pain however. Aspirin 162 mg and nitroglycerin 1 inch the chest wall was written to be administered, however the patient refused. I explained to the patient that he would be being admitted for continued evaluation and treatment. The patient reports that he is considering leaving AGAINST MEDICAL ADVICE. The patient was provided normal saline 1 L IV fluid bolus. The patients laboratory studies were reviewed and remarkable for a white count of 20.3, hemoglobin 12.2, platelets 318 with 81 neutrophils, 3 bands, 2 lymphocytes, the patient was last on Levaquin 750 mg by mouth. The patient was given a dose of this in the emergency department. CMP is remarkable for sodium of 125, chloride 91, C-reactive protein 2.30, magnesium 1.9, TSH 1.89, urinalysis shows trace leukocyte esterase Radiology studies were reviewed and remarkable for a chest x-ray that shows no acute abnormality. The patient continues to wish to leave AGAINST MEDICAL ADVICE prior to the occlusion of his workup and treatment. The patient is oriented to person, place , time, and situation. The patient reports that he plans on staying at a local half-way and then returning back to [place] as soon as possible. AMA: The risks of leaving against medical advice without further evaluation treatment were discussed with the patient. These risks include cardiac dysfunction, cardiac dysrhythmia, possible heart attack, possible stroke or . The patient indicated understanding of these risks and appeared to have the capacity to make this decision. Diagnosis Primary Impression: Generalized weakness Additional Impressions: Hyponatremia Leukocytosis Qualified Code: D72.825 - Bandemia Admitting Information Admitting Physician Requests: Admit Disposition: 07 AGAINST MEDICAL ADVICE Condition: Talia Morales MD Aug 13, 2016 20:04
[2016-08-13 20:07] VITALS: BP_SYST 102; BP_SYST 96; BP_SYST 98; BP_DIAS 54; BP_DIAS 59; BP_DIAS 62; RESP 14; RESP 16
[2016-08-13 20:14] LABS: AUTOMATED NEUTROPHIL # 18.1 TH/MM3 (1.8-7.7); BASOPHIL # 0.1 TH/MM3 (0-0.2); BASOPHIL % 0.7 % (0.0-2.0); HEMATOCRIT 34.8 % (39.0-51.0); LYMPH % 3.8 % (9.0-44.0); LYMPHOCYTE # 0.8 TH/MM3 (1.0-4.8); MEAN CELL VOLUME 108.1 FL (80.0-100.0); MEAN CORPUSCULAR HEMOGLOBIN 37.7 PG (27.0-34.0); MEAN CORPUSCULAR HGB CONC 34.9 % (32.0-36.0); MONO % 6.3 % (0.0-8.0); NEUT % 89.2 % (16.0-70.0); PLATELET COUNT 318 TH/MM3 (150-450); RED BLOOD COUNT 3.22 MIL/MM3 (4.50-5.90); WHITE BLOOD COUNT 20.3 TH/MM3 (4.0-11.0)
[2016-08-13 20:17] LABS: HEMO FLAGS AUTO DIFF
[2016-08-13] MEDS ORDERED: NITROGLYCERIN 2% OINT 1 GM PACKET TOPICAL ONE (20:30)
[2016-08-13] MEDS ORDERED: ASPIRIN 81 MG CHEW TAB CHEW ONE (20:30)
[2016-08-13] MEDS ORDERED: SODIUM CHLOR 0.9% 1000 ML INJ 1,000 ML IV ONE (20:30)
--- NOTE | 2016-08-13 20:41 | RADRPT ---
EXAM DATE/TIME: 08/13/2016 20:05 [facility] COMPARISON: CHEST SINGLE AP, August 11, 2016, 6:16. INDICATIONS : Shortness of breath. MEDICAL HISTORY : Seizures. SURGICAL HISTORY : None. ENCOUNTER: Initial ACUITY: 2 weeks PAIN SCORE: 0/10 LOCATION: Bilateral chest FINDINGS: Lungs are hyperinflated. Interstitial prominence consistent with chronic interstitial disease is noted. There are no consolida ting infiltrates, mass densities or effusions. CONCLUSION: COPD. No evidence of acute process. Man Griffin MD on August 13, 2016 at 20:39 Board Certified Radiologist. This report was verified electronically.
[2016-08-13 20:42] LABS: BLOOD, URINE NEG (NEG); COMMENT (UR) CULT NOT INDICATED; CULTURE IF INDICATED CULT NOT INDICATED; GLUCOSE,URINE NEG (NEG); HYALINE CAST, URINE 1 /lpf (RARE); KETONE, URINE NEG (NEG); MUCUS URINE FEW /lpf (OCC); NITRITE,URINE NEG (NEG); URINE COLOR YELLOW (YELLW/STRAW)
[2016-08-13 20:42] LABS: BICARBONATE 22.5 MEQ/L (21.0-32.0); MAGNESIUM 1.9 MG/DL (1.5-2.5); POTASSIUM 4.9 MEQ/L (3.5-5.1)
[2016-08-13 20:45] LABS: AMPHETAMINE, URINE NEG (NEG); BARBITURATES, URINE NEG (NEG); COCAINE, URINE NEG (NEG)
[2016-08-13 20:51] LABS: BANDS 3 % (0-6); METAMYELOCYTES 5 % (0-1); MYELOCYTES 4 % (0-0); NEUTROPHIL # MANUAL DIFF 18.9 TH/MM3 (1.8-7.7); POLYS (SEG NEUTROPHILS) 81 % (16-70); WBC DIFF SAMPLE 100
[2016-08-13 20:52] LABS: PLATELET ESTIMATE SMEAR NORMAL (NORMAL); PLATELET MORPHOLOGY NORMAL (NORMAL); STOMATOCYTES 1+ (NORMAL)
[2016-08-13 20:53] LABS: SCAN/DIFF FINAL DIFF MANUAL
[2016-08-13] MEDS ORDERED: LEVOFLOXACIN 750 MG TAB PO ONE (21:00)
[2016-08-13 21:17] VITALS: BP 115/64; PULSE 97; RESP 15; O2SAT 96
--- NOTE | 2016-08-14 16:35 | EKG ---
Date Performed: 08/13/2016 Time Performed: 20:18:37 PTAGE: 51 years EKG: SINUS TACHYCARDIA POSSIBLE RIGHT ATRIAL ENLARGEMENT BORDERLINE RIGHT AXIS DEVIATION MODERAT E T-WAVE ABNORMALITY, CONSIDER LATERAL ISCHEMIA MODERATE T-WAVE ABNORMALITY, CONSIDER INFERIOR ISCHEM IA T-WAVE TRACING ARE NEW SINCE PRIOR TRACING CANNOT RULE OUT ISCHEMIA. Clinical correlation is recom mended ABNORMAL ECG PREVIOUS TRACING : 08/04/2016 11.22 DOCTOR: Jah Morales Interpretating Date/Time 08/14/2016 16:34:42
== END 2016-08-13 21:20 | disposition left against medical advice (07) ==
LOC: NEPC 19:44
DX: R53.1 Weakness (principal); E87.1 Hypo-osmolality and hyponatremia; D72.825 Bandemia; D72.829 Elevated white blood cell count, unspecified; F17.210 Nicotine dependence, cigarettes, uncomplicated; J44.9 Chronic obstructive pulmonary disease, unspecified; R06.02 Shortness of breath; R00.0 Tachycardia, unspecified
CPT/HCPCS: 71010; 80048; 80307; 80320; 81001; 82550; 83735; 83880; 84443; 84484; 85007; 85027; 86140; 93005; 99285; J7030